=== PATIENT | male | born 1955 | race Caucasian/White ===

== ENCOUNTER 2018-12-02 07:40 | Day surgery (SDC) | payer BC ==
[~2018-12-02 07:40] MED LIST: LACTATED RINGERS 1,000 ML IV SCH
[2018-12-02 07:59] VITALS: TEMP 96.9
[2018-12-02] MEDS ORDERED: LIDOCAINE 1% 20 ML VIAL (10MG/ML) FOR IV START INTRADERMA ONE (08:10)
[2018-12-02] MEDS ORDERED: LIDOCAINE 1% INJ 10MG/ML (20 ML MDV) ONE (08:20)
[2018-12-02] MEDS ORDERED: PROPOFOL 10 MG/ML 20 ML VIAL IV ONE (08:20)
--- NOTE | 2018-12-02 08:25 | P.GSHP ---
History of Present Illness H&P Date: 12/02/18 Chief Complaint: Screening colonoscopy This is a 63-year-old male who presents today for screening colonoscopy. Patient denies a significant GI complaints. Past Medical History Additional Past Medical History / Comment(s): recent admission to [facility] for low sodium affecting kidney functions-October 2018,tremors,diarrhea,increased fatigue History of Any Multi-Drug Resistant Organisms: None Reported Past Surgical History: Cholecystectomy Additional Past Surgical History / Comment(s): traumatic amputation of finger Past Anesthesia/Blood Transfusion Reactions: No Reported Reaction Additional Past Anesthesia/Blood Transfusion Reaction / Comment(s): unknown family hx Smoking Status: Former smoker - Past Family History Mother Family Medical History: No Reported History Father Additional Family Medical History / Comment(s): clotting disorder Medications and Allergies Home Medications Medication Instructions Recorded Confirmed Type Nicotine 21Mg/24Hr Patch [Habitrol 1 each TRANSDERM DAILY 11/29/18 12/02/18 History 21Mg/24Hr Patch] Pantoprazole Sodium [Protonix] 40 mg PO DAILY 11/29/18 12/02/18 History Allergies Allergy/AdvReac Type Severity Reaction Status Date / Time No Known Allergies Allergy Verified 12/02/18 07:59 Surgical - Exam Vital Signs Temp Pulse Resp BP Pulse Ox 96.9 F L 88 16 122/76 97 12/02/18 07:55 12/02/18 07:55 12/02/18 07:55 12/02/18 07:55 12/02/18 07:55 - General well developed, well nourished, no distress - Eyes PERRL - ENT normal pinna - Neck no masses - Respiratory normal expansion - Cardiovascular Rhythm: regular - Abdomen Abdomen: soft, non tender Assessment and Plan Assessment: We'll perform screening colonoscopy.
--- NOTE | 2018-12-02 08:39 | P.OP ---
Date of Procedure: 12/02/18 Preoperative Diagnosis: Screening colonoscopy Postoperative Diagnosis: Normal colon Procedure(s) Performed: Colonoscopy Anesthesia: MAC Surgeon: Henry Dos Santos Pathology: none sent Condition: stable Disposition: PACU Description of Procedure: PROCEDURE: The patient was placed on the endoscopy table in the lateral position. Digital rectal examination was performed which revealed no abnormalities. The prostate was symmetrical without nodules. Flexible colonoscope was then placed in the patient's anus and passed throughout the entire colon. The ileocecal valve was visualized. The cecum, ascending, transverse, descending and sigmoid colon were normal. The rectum was normal as well. There were no masses, polyps or diverticula noted in the entire colon. SUMMARY OF FINDINGS: Normal colonoscopy.
[2018-12-02 08:58] VITALS: BP 110/68; PULSE 74; RESP 18
== END 2018-12-02 09:10 | disposition home or self-care (01) ==
LOC: ORWHC2ENDO 07:40
PROVIDERS: ATTEND Surgery
DX: Z12.11 Encounter for screening for malignant neoplasm of colon (principal); K21.9 Gastro-esophageal reflux disease without esophagitis; Z90.49 Acquired absence of other specified parts of digestive tract; R25.1 Tremor, unspecified; Z87.891 Personal history of nicotine dependence; Z83.2 Family history of diseases of the blood and blood-forming organs and certain disorders involving the immune mechanism; Z79.899 Other long term (current) drug therapy
CPT/HCPCS: J2001; J2704; G0121; 45378

== ENCOUNTER 2018-12-23 10:50 | Inpatient (IN) | payer BC ==
--- NOTE | 2018-12-23 12:26 | ED ---
Skin/Abscess/FB HPI <Ha Bardales - Last Filed: 12/23/18 14:05> - General Source: patient Mode of arrival: wheelchair Limitations: no limitations <Francine Bruner - Last Filed: 12/23/18 15:20> - General Chief complaint: Skin/Abscess/Foreign Body Stated complaint: Foot infection Time Seen by Provider: 12/23/18 11:29 - History of Present Illness Initial comments: Patient is a 63-year-old male presenting to the emergency Department with complaints of a wound on his right big toe. Patient states he has been dealing with a sore on his bottom of right foot for almost a year now. Patient states he recently switched foot doctors after he moved in with his son and now sees Dr. Krishnan. Patient admits to history of neuropathy in bilateral feet. Patient states approximate 4 days ago he was feeling nauseous, vomiting, fatigue. That has since passed. Then yesterday patient noticed his right toe appeared more red than usual. Patient went to Dr Krishnan today and had the wound drained. Dr. Krishnan recommended him coming to the ER for possible debridement. Patient denies fever, chills, nausea, vomiting at this time. Patient has not been on antibiotics recently. Upon arrival to ER, vital signs are stable, afebrile. (Francine Bruner) - Related Data Home Medications Medication Instructions Recorded Confirmed Nicotine 21Mg/24Hr Patch [Habitrol 1 each TRANSDERM DAILY 11/29/18 12/02/18 21Mg/24Hr Patch] Pantoprazole Sodium [Protonix] 40 mg PO DAILY 11/29/18 12/02/18 Allergies Allergy/AdvReac Type Severity Reaction Status Date / Time No Known Allergies Allergy Verified 12/23/18 11:00 Review of Systems ROS Other: All systems not noted in ROS Statement are negative. <Ha Bardales - Last Filed: 12/23/18 14:05> ROS Other: All systems not noted in ROS Statement are negative. <Francine Bruner - Last Filed: 12/23/18 15:20> ROS Statement: Those systems with pertinent positive or pertinent negative responses have been documented in the HPI. Past Medical History Additional Past Medical History / Comment(s): recent admission to [facility] for low sodium affecting kidney functions-October 2018,tremors,diarrhea,increased fatigue, neuropathy, previous DM History of Any Multi-Drug Resistant Organisms: None Reported Past Surgical History: Cholecystectomy Additional Past Surgical History / Comment(s): traumatic amputation of finger Past Anesthesia/Blood Transfusion Reactions: No Reported Reaction Additional Past Anesthesia/Blood Transfusion Reaction / Comment(s): unknown family hx Past Psychological History: Depression Smoking Status: Former smoker Past Alcohol Use History: None Reported Past Drug Use History: None Reported - Past Family History Mother Family Medical History: No Reported History Father Additional Family Medical History / Comment(s): clotting disorder <Francine Bruner - Last Filed: 12/23/18 15:20> General Exam Limitations: no limitations <Francine Bruner - Last Filed: 12/23/18 15:20> - General Exam Comments Initial Comments: GENERAL: Well-appearing, well-nourished and in no acute distress. HEAD: Atraumatic, normocephalic. EYES: Pupils equal round and reactive to light, extraocular movements intact, sclera anicteric, conjunctiva are normal. ENT: TMs normal, nares patent, oropharynx clear without exudates. Moist mucous membranes. NECK: Normal range of motion, supple without lymphadenopathy or JVD. LUNGS: Breath sounds clear to auscultation bilaterally and equal. No wheezes rales or rhonchi. HEART: Regular rate and rhythm without murmurs, rubs or gallops. ABDOMEN: Soft, nontender, normoactive bowel sounds. No guarding, no rebound. No masses appreciated. : Deferred EXTREMITIES: Patient has 2 open wounds on the palmar aspect of his right foot and on the lateral aspect of his right big toe. He has surrounding erythema of the right big toe and into the right foot. He does have some pain with palpation. There is very little drainage at this time. NEUROLOGICAL: Cranial nerves II through XII grossly intact. Normal speech. Decreased sensat ion in bilateral lower legs secondary to neuropathy. PSYCH: Normal mood, normal affect. SKIN: Warm, Dry, normal turgor, no rashes. (Francine Bruner) Course Vital Signs 12/23/18 12/23/18 11:00 14:20 Temperature 98.0 F Pulse Rate 85 55 L Respiratory 18 18 Rate Blood Pressure 98/66 115/78 O2 Sat by Pulse 99 98 Oximetry Medical Decision Making - Lab Data Result diagrams: 12/23/18 12:18 12/23/18 12:18 <Ha Bardales - Last Filed: 12/23/18 14:05> - Lab Data Result diagrams: 12/23/18 12:18 12/23/18 12:18 <Francine Bruner - Last Filed: 12/23/18 15:20> - Medical Decision Making I, Atilio Bardales, personally saw and examined the patient. I have reviewed and agree with the PA findings, including all diagnostic interpretations and treatment plans as written unless otherwise stated. I was present for the [place] portions of any procedures performed and the inclusive time noted for any [facility] care statement. (Ha Bardales) Patient is a 63-year-old male presenting with 2 open sores on his right big toe. Patient has had a chronic ulcer on the bottom of his right foot for almost a year now and now has also developed a second sore on the medial aspect of his right great toe. Vital signs are stable upon arrival. On exam patient has 2 open ulcers, with surrounding cellulitis. Patient has pain with palpation. Patient has decreased sensation of bilateral lower feet secondary to neuropathy. Patient is currently having active drainage. Wound cultures were obtained by Dr. Krishnan's office prior to arrival and will be sent to lab. Labs reveal white count of 13.8. Lactic acid is 1.1. Glucose 121. UA was within normal limits. Case is discussed with Dr. Bardales. Patient will be admitted for IV antibiotics and consult to vascular surgery. Patient is agreement with this plan. (Francine Bruner) - Lab Data Lab Results 12/23/18 12/23/18 12/23/18 Range/Units 12:18 12:18 12:18 WBC 13.8 H (3.8-10.6) k/uL RBC 3.27 L (4.30-5.90) m/uL Hgb 10.8 L (13.0-17.5) gm/dL Hct 32.3 L (39.0-53.0) % MCV 98.8 (80.0-100.0) fL MCH 32.9 (25.0-35.0) pg MCHC 33.3 (31.0-37.0) g/dL RDW 15.1 (11.5-15.5) % Plt Count 371 (150-450) k/uL Neutrophils % 84 % Lymphocytes % 7 % Monocytes % 5 % Eosinophils % 2 % Basophils % 0 % Neutrophils # 11.6 H (1.3-7.7) k/uL Lymphocytes # 1.0 (1.0-4.8) k/uL Monocytes # 0.7 (0-1.0) k/uL Eosinophils # 0.3 (0-0.7) k/uL Basophils # 0.0 (0-0.2) k/uL Sodium 137 (137-145) mmol/L Potassium 4.3 (3.5-5.1) mmol/L Chloride 104 (98-107) mmol/L Carbon Dioxide 18 L (22-30) mmol/L Anion Gap 15 mmol/L BUN 29 H (9-20) mg/dL Creatinine 2.17 H (0.66-1.25) mg/dL Est GFR (CKD-EPI)AfAm 36 (>60 ml/min/1.73 sqM) Est GFR (CKD-EPI)NonAf 31 (>60 ml/min/1.73 sqM) Glucose 121 H (74-99) mg/dL Plasma Lactic Acid Tod 1.1 (0.7-2.0) mmol/L Calcium 9.6 (8.4-10.2) mg/dL Total Bilirubin 0.8 (0.2-1.3) mg/dL AST 15 L (17-59) U/L ALT 19 L (21-72) U/L Alkaline Phosphatase 105 (38-126) U/L Total Protein 7.4 (6.3-8.2) g/dL Albumin 4.3 (3.5-5.0) g/dL Urine Color Urine Appearance (Clear) Urine pH (5.0-8.0) Ur Specific [place] (1.001-1.035) Urine Protein (Negative) Urine Glucose (UA) (Negative) Urine Ketones (Negative) Urine Blood (Negative) Urine Nitrite (Negative) Urine Bilirubin (Negative) Urine Urobilinogen (<2.0) mg/dL Ur Leukocyte Esterase (Negative) Urine RBC (0-5) /hpf Urine WBC (0-5) /hpf Ur Squamous Epith Cells (0-4) /hpf Urine Bacteria (None) /hpf Urine Mucus (None) /hpf 12/23/18 Range/Units 13:23 WBC (3.8-10.6) k/uL RBC (4.30-5.90) m/uL Hgb (13.0-17.5) gm/dL Hct (39.0-53.0) % MCV (80.0-100.0) fL MCH (25.0-35.0) pg MCHC (31.0-37.0) g/dL RDW (11.5-15.5) % Plt Count (150-450) k/uL Neutrophils % % Lymphocytes % % Monocytes % % Eosinophils % % Basophils % % Neutrophils # (1.3-7.7) k/uL Lymphocytes # (1.0-4.8) k/uL Monocytes # (0-1.0) k/uL Eosinophils # (0-0.7) k/uL Basophils # (0-0.2) k/uL Sodium (137-145) mmol/L Potassium (3.5-5.1) mmol/L Chloride (98-107) mmol/L Carbon Dioxide (22-30) mmol/L Anion Gap mmol/L BUN (9-20) mg/dL Creatinine (0.66-1.25) mg/dL Est GFR (CKD-EPI)AfAm (>60 ml/min/1.73 sqM) Est GFR (CKD-EPI)NonAf (>60 ml/min/1.73 sqM) Glucose (74-99) mg/dL Plasma Lactic Acid Tod (0.7-2.0) mmol/L Calcium (8.4-10.2) mg/dL Total Bilirubin (0.2-1.3) mg/dL AST (17-59) U/L ALT (21-72) U/L Alkaline Phosphatase (38-126) U/L Total Protein (6.3-8.2) g/dL Albumin (3.5-5.0) g/dL Urine Color Yellow Urine Appearance Clear (Clear) Urine pH 5.5 (5.0-8.0) Ur Specific [place] 1.012 (1.001-1.035) Urine Protein 1+ H (Negative) Urine Glucose (UA) Negative (Negative) Urine Ketones Negative (Negative) Urine Blood Negative (Negative) Urine Nitrite Negative (Negative) Urine Bilirubin Negative (Negative) Urine Urobilinogen <2.0 (<2.0) mg/dL Ur Leukocyte Esterase Negative (Negative) Urine RBC 2 (0-5) /hpf Urine WBC 6 H (0-5) /hpf Ur Squamous Epith Cells 1 (0-4) /hpf Urine Bacteria Rare H (None) /hpf Urine Mucus Rare H (None) /hpf Disposition <Ha Bardales - Last Filed: 12/23/18 14:05> Is patient prescribed a controlled substance at d/c from ED?: No Decision Date: 12/23/18 Decision Time: 14:30 <Francine Bruner - Last Filed: 12/23/18 15:20> Clinical Impression: Ulcer of toe of right foot, Cellulitis of right foot Disposition: ADMITTED IP TO THIS [facility] Condition: Stable Referrals: Wendi Guajardo DO [Primary Care Provider] - 1-2 days
[2018-12-23 12:34] LABS: Basophils % (A) 0 %; Eosinophils # (A) 0.3 k/uL (0-0.7); Eosinophils % (A) 2 %; HCT 32.3 % (39.0-53.0); HGB 10.8 gm/dL (13.0-17.5); Lymphocytes % (A) 7 %; MCH 32.9 pg (25.0-35.0); MCHC 33.3 g/dL (31.0-37.0); MCV 98.8 fL (80.0-100.0); Mean Platelet Volume 7.3; Monocytes # (A) 0.7 k/uL (0-1.0); Monocytes % (A) 5 %; Neutrophils # (A) 11.6 k/uL (1.3-7.7); Neutrophils % (A) 84 %; Platelet Count 371 k/uL (150-450); RBC 3.27 m/uL (4.30-5.90); RDW 15.1 % (11.5-15.5); WBC 13.8 k/uL (3.8-10.6)
--- NOTE | 2018-12-23 12:36 | XR ---
EXAMINATION TYPE: XR foot complete RT DATE OF EXAM: 12/23/2018 COMPARISON: NONE HISTORY: Pain TECHNIQUE: Three views are submitted. FINDINGS: Arthropathy of all MTP joints and DIP joints. There is a demineralization of the head of the fourth a nd fifth metatarsal and proximal phalanx of the fourth and fifth digits. Calcaneal spurs are noted. IMPRESSION: 1. Demineralization of the fourth and fifth digits as discussed above correlate for osteomyelitis.
[2018-12-23 12:44] LABS: Albumin 4.3 g/dL (3.5-5.0); Calcium 9.6 mg/dL (8.4-10.2); Potassium 4.3 mmol/L (3.5-5.1); Total Bilirubin 0.8 mg/dL (0.2-1.3); Total Protein 7.4 g/dL (6.3-8.2)
[2018-12-23 13:44] LABS: Appearance,Urine Clear (Clear); Bacteria,Urine Rare /hpf; Bilirubin,Urine Negative (Negative); Blood,Urine Negative (Negative); Color,Urine Yellow; Glucose,Urine (UA) Negative (Negative); Ketones,Urine Negative (Negative); Leukocyte Esterase,Urine Negative (Negative); Mucus,Urine Rare /hpf; Nitrite,Urine Negative (Negative); PH, Urine 5.5 (5.0-8.0); Protein,Urine 1+ (Negative); RBC,Urine 2 /hpf (0-5); Specific Gravity,Urine 1.012 (1.001-1.035); Squamous Epithelial Cell,Urine 1 /hpf (0-4); Urobilinogen,Urine <2.0 mg/dL (<2.0)
[2018-12-23] MEDS ORDERED: ONDANSETRON 4 MG/2 ML VIAL IVP PRN (14:19)
[2018-12-23] MEDS ORDERED: traMADol 50 MG TAB PO PRN (14:19)
[2018-12-23] MEDS ORDERED: ACETAMINOPHEN TAB 325 MG TAB PO PRN (14:19)
[2018-12-23] MEDS ORDERED: NALOXONE 0.4 MG/ML 1 ML VIAL IV PRN (14:19)
[2018-12-23] MEDS ORDERED: VANCOMYCIN IV PER PHARMACY 1 EACH MISC MISCELLANE PRN (14:29)
[2018-12-23] MEDS: SODIUM CHLORIDE 0.9% 1,000 ML IV SCH (14:53)
[2018-12-23] MEDS: VANCOMYCIN 1,750 MG in SODIUM CHLORIDE 0.9% 500 ML 500 ML IVPB STA ×2 (14:53→16:17)
[2018-12-23] MEDS ORDERED: ALPRAZolam 0.25 MG TAB PO PRN (15:19)
[2018-12-23] MEDS ORDERED: HYDROmorphone 0.5 MG/0.5 ML SYRINGE IVP PRN (15:19)
[2018-12-23] MEDS ORDERED: HYDROcodone/APAP 5-325MG 1 EACH TAB PO PRN (15:19)
[2018-12-23] MEDS: INSULIN ASPART (NovoLOG) 100 UNIT/ML VIAL SQ SCH ×2 (17:23→21:20)
[2018-12-23 17:25] LABS: Glucose,Whole Blood 137 mg/dL (75-99)
--- NOTE | 2018-12-23 19:51 | HP ---
HISTORY AND PHYSICAL CHIEF COMPLAINT: Pain and swelling of the right big toe. I am covering for Dr. Guajardo. HISTORY OF PRESENT ILLNESS: This 63-year-old gentleman with a past medical history of multiple medical problems including diabetes, history of GERD, renal disease, being followed by Dr. Wendi Guajardo in the outpatient setting. The patient recently moved from the left side of the [facility] to [facility]. Patient was recently admitted to [facility] because of hyponatremia and multiple other medical issues and diarrhea. The patient lost about 150 pounds. The patient is having chronic wound on the right big toe area after an abscess for the last 1 year, which was treated by multiple physicians and Dr. Krishnan, his wired music operator performed incision and drainage today and because of worsening infection and other complications, patient referred to [facility] and was admitted for further evaluation and treatment. There is no history of fever, rigors or chills. No history of headache, loss of consciousness or seizures at this time. PAST MEDICAL HISTORY: Diabetes type 2, GERD, history of renal disease, history of cholecystectomy, history of depression. MEDICATIONS: Home medications are: 1. Protonix 40 mg q.h.s. 2. Melatonin q.h.s. 3. Zestril 2.5 mg q.h.s. 4. Vitamin B12 1000 mg q.h.s. ALLERGIES: None. FAMILY HISTORY: No history of any heart disease or strokes in the family. SOCIAL HISTORY: Previous history of smoking. No history of current smoking or alcohol intake. REVIEW OF SYSTEMS: ENT: No diminished vision. No diminished hearing. CARDIOVASCULAR system: No angina or palpitations. RESPIRATIONS: No cough. No hemoptysis. GI no nausea or vomiting. no dysuria. NERVOUS SYSTEM: No numbness or weakness. ALLERGY/IMMUNOLOGY: No asthma or hayfever. MUSCULOSKELETAL: As mentioned earlier. HEMATOLOGY/ONCOLOGY: No history of anemia. ENDOCRINE: Diabetes. CONSTITUTIONAL: As mentioned earlier. DERMATOLOGY negative. PSYCHIATRIC: As mentioned earlier. PHYSICAL EXAMINATION: Alert and oriented x3. Pulse is 97, blood pressure 116/84, respiration 18, temperature 98.2, pulse ox 98% on room air. HEENT: Conjunctivae normal. NECK: No JVD. No carotid bruit. No lymph node enlargement. CARDIOVASCULAR: S1, S2 muffled. RESPIRATIONS: Breath sounds diminished in the bases. No rhonchi. No crackles. ABDOMEN: Soft, nontender. No mass palpable. LEGS: The right leg significant infection and tenderness, erythema of the right big toe area, status post incision and drainage and also pulses diminished on that side. NERVOUS SYSTEM: Higher functions as mentioned earlier. Moves all four limbs. No focal motor or sensory deficits. LYMPHATICS: No lymph nodes palpable in the neck, axillae or groin. SKIN: No ulcer, rash or bleeding. LABS: WBC 13.2, hemoglobin 10.8, sodium 137, potassium 4.3, creatinine is 2.17. ASSESSMENT: 1. Acute on chronic right big toe wound infection with diabetic foot with failure of outpatient treatment, possible osteomyelitis. 2. Increased creatinine with chronic kidney disease stage 3. 3. History of hyponatremia. 4. Increased WBC. 5. Anemia, normocytic anemia of chronic disease. 6. Diabetes mellitus type 2. 7. Peripheral neuropathy. 8. Gastroesophageal reflux disease. 9. History of weight loss. 10.Cholecystectomy. 11.History of depression. 12.Gait dysfunction, uses cane for ambulation. 13.History of nicotine dependence. 14.History of EtOH. RECOMMENDATIONS AND DISCUSSION: In this 63-year-old gentleman who presented with multiple complex medical issues, we will monitor the patient closely, continue the current medications, management and symptomatic treatment. We will initiate broad-spectrum IV antibiotics and I would also obtain the cultures. DVT prophylaxis. Symptomatic treatment. Guarded prognosis because of multiple complex medical issues. Further recommendations to follow. A copy of this dictation being forwarded to Dr. Guajardo who is the primary physician. We will consult Infectious Disease and as well as vascular surgery also. MMODL / IJN: [id number] /
[2018-12-23 20:29] LABS: Glucose,Whole Blood 110 mg/dL (75-99)
[2018-12-23] MEDS: TEMAZEPAM 15 MG CAP PO PRN (21:20)
[2018-12-23] MEDS: HEPARIN SODIUM,PORCINE 5,000 UNIT/ML 1 ML VIAL SQ SCH (21:20)
[2018-12-23] MEDS: LISINOPRIL 2.5 MG TAB PO SCH (21:21)
[2018-12-23] MEDS: CYANOCOBALAMIN 500 MCG TAB PO SCH (21:21)
[2018-12-23] MEDS: PIPERACILLIN-TAZOBACTAM 3.375 GM in SODIUM CHLORIDE 0.9% 100 ML IVPB SCH (23:57)
--- NOTE | 2018-12-24 00:35 | CONS ---
CONSULTATION This is a 63-year-old gentleman who came to the emergency room, referred by Dr. Krishnan. The patient has a chronic wound right foot big toe. He has a history of callus formation and also patient has been on a total contact cast when he was at the wound center at [facility]. The patient was sent for further investigation. PHYSICAL EXAMINATION: Patient was seen in his room. NECK: Supple. CHEST: Clear to auscultation. ABDOMEN: Soft. Femorals are palpable, dorsal pedis is palpable. Patient has some redness of the right foot big toe on the plantar aspect with callus formation. No active bleeding was noted. PLAN: We will do the bone scan since patient has a chronic wound to the right foot big toe and also patient is on IV antibiotic. Culture has been taken. Medihoney gel to the wound and the if does not improve, then patient will need some surgical intervention. We will follow with you. The patient has a decent circulation. Thank you very much for the consultation. MMODL / IJN: [id number] /
[2018-12-24 07:53] LABS: Glucose,Whole Blood 96 mg/dL (75-99)
[2018-12-24] MEDS: THIAMINE 100 MG TAB PO SCH (08:00)
[2018-12-24] MEDS: PANTOPRAZOLE 40 MG TABLET PO SCH (08:00)
[2018-12-24] MEDS: MULTIVITAMINS, THERA 1 EACH TAB PO SCH (08:00)
[2018-12-24] MEDS: FOLIC ACID 1 MG TAB PO SCH (08:00)
[2018-12-24] MEDS: PIPERACILLIN-TAZOBACTAM 3.375 GM in SODIUM CHLORIDE 0.9% 100 ML IVPB SCH (08:00)
[2018-12-24] MEDS: HEPARIN SODIUM,PORCINE 5,000 UNIT/ML 1 ML VIAL SQ SCH ×2 (08:00→20:27)
[2018-12-24] MEDS: INSULIN ASPART (NovoLOG) 100 UNIT/ML VIAL SQ SCH ×4 (08:01→20:41)
[2018-12-24 09:38] LABS: Potassium 4.2 mmol/L (3.5-5.1)
[2018-12-24 10:10] LABS: Basophils # (A) 0.2 k/uL (0-0.2); Basophils % (A) 1 %; Eosinophils # (A) 0.4 k/uL (0-0.7); Eosinophils % (A) 4 %; HCT 31.3 % (39.0-53.0); HGB 10.1 gm/dL (13.0-17.5); Lymphocytes # (A) 1.2 k/uL (1.0-4.8); Lymphocytes % (A) 11 %; MCH 32.2 pg (25.0-35.0); MCHC 32.1 g/dL (31.0-37.0); MCV 100.1 fL (80.0-100.0); Macrocytosis Slight; Mean Platelet Volume 8.4; Monocytes # (A) 0.5 k/uL (0-1.0); Monocytes % (A) 5 %; Neutrophils # (A) 8.7 k/uL (1.3-7.7); Neutrophils % (A) 78 %; Platelet Count 374 k/uL (150-450); RBC 3.13 m/uL (4.30-5.90); RDW 14.7 % (11.5-15.5); WBC 11.2 k/uL (3.8-10.6)
[2018-12-24] MEDS: SODIUM CHLORIDE 0.9% 1,000 ML IV SCH (12:21)
[2018-12-24 12:26] LABS: Glucose,Whole Blood 92 mg/dL (75-99)
--- NOTE | 2018-12-24 12:46 | NM ---
EXAMINATION TYPE: NM bone 3 phase DATE OF EXAM: 12/24/2018 COMPARISON: 12/23/2018 HISTORY: osteo rt foot Triple phase bone scintigraphy was performed following the injection of 26.4 mCi Tc 99m MDP. Immedia te images and 4 hours post injection images acquired. FINDINGS: There is increased flow to the right foot including the first and second digit. Soft tissue uptake is seen involving the first and second digit of the right foot compatible cellulit is and hyperemia. Delayed imaging demonstrates increased uptake at the head of the first metatarsal. IMPRESSION: 1. Findings are compatible with a cellulitis with osteomyelitis of the head of the right first metata rsal.
--- NOTE | 2018-12-24 13:23 | P.CONS ---
History of Present Illness - Reason for Consult Consult date: 12/23/18 Right foot wound cellulitis and a question of osteomyelitis Requesting physician: Delmis Plummer - Chief Complaint Right foot wound swelling redness times few weeks - History of Present Illness Patient is 63 year male with a past medical history significant for a chronic nonhealing wound to the right foot at the base of his right big toe that has been there for almost a year now and has been previously treated by foot piece assembler in the [facility] and has been treated with multiple modalities the patient recently moved to this area and did follow up with a local foot piece assembler Dr. Krishnan who subsequently sent the patient to the ER as he was noticed to have worsening cellulitis patient mentioning that wound on the right foot medial aspect hasn't healed up now almost a year he hasn't noticed recent worsening with more swelling more redness patient did have some diabetic neuropathy who hence did not have significant pain but did have some pressure describing the pressure to be about 4-5 out of 10 when it is pressed on and he walks on it denies significant purulent drainage from it with associated swelling redness and warmth to the area he did have some chills but denies high- grade fever the patient was evaluated by the ER physician patient did have x- rays of the foot which was read as demineralization of the fourth and fifth digit as discussed above correlate for Osteomyelitis did not mention anything on the first digit, the patient did receive a dose of Rocephin in the ER he was admitted to the hospital infectious disease was consulted for further re commendation regarding antibiotic therapy, patient has been afebrile however noticed to have elevated white count of 13.8 Review of Systems CONSTITUTIONAL: Positive for weakness. Some chills but denies high-grade Fever EYES: No complaint. ENT:No complaint. RESPIRATORY: No complaint. CARDIOVASCULAR: No complaint. GENITOURINARY: No complaint. GASTROINTESTINAL: No complaint. MUSCULOSKELETAL: As per history of present illness INTEGUMENTARY:As per history of present illness PSYCHOLOGICAL: No complaint. ENDOCRINE: No complaint. NEUROLOGIC: No complaint. Past Medical History Past Medical History: Diabetes Mellitus, Eye Disorder, GERD/Reflux, Renal Disease Additional Past Medical History / Comment(s): 10/2018 Pt was admitted to [facility] with hyponatremia which affected his kidney function/tremors/diarrhea and increased fatigue, ckd, pt states he lost 150 pounds and no longer on medication for diabetes, bilateral feet neuropathy, constipation alternating with diarrhea, "protein film over L eye and alittle on R eye". History of Any Multi-Drug Resistant Organisms: None Reported Past Surgical History: Cholecystectomy, Orthopedic Surgery Additional Past Surgical History / Comment(s): Traumatic amputation index finger L hand, colonoscopy, bilateral cataract removals/lens implants. Past Anesthesia/Blood Transfusion Reactions: No Reported Reaction Additional Past Anesthesia/Blood Transfusion Reaction / Comm: unknown family hx Smoking Status: Former smoker - Past Family History Mother History Unknown: Yes Family Medical History: No Reported History Additional Family Medical History / Comment(s): Mother left when pt was 2 yrs old. Father Family Medical History: Blood Disorder, Cancer Additional Family Medical History / Comment(s): Clotting disorder-"bleeder". Father had 5 different types of cancers. Brother(s) Family Medical History: Deep Vein Thrombosis (DVT) Medications and Allergies Home Medications Medication Instructions Recorded Confirmed Type Pantoprazole Sodium [Protonix] 40 mg PO HS 11/29/18 12/23/18 History Cyanocobalamin [Vitamin B-12] 1,000 mcg PO HS 12/23/18 12/23/18 History Lisinopril [Zestril] 2.5 mg PO HS 12/23/18 12/23/18 History Melatonin Gummies(Unknown Dose) 1 tab PO HS 12/23/18 12/23/18 History Allergies Allergy/AdvReac Type Severity Reaction Status Date / Time No Known Allergies Allergy Verified 12/23/18 15:24 Physical Exam Vitals: Vital Signs Temp Pulse Resp BP Pulse Ox 12/23/18 16:20 98.6 F 97 18 116/84 98 12/23/18 14:20 55 L 18 115/78 98 12/23/18 11:00 98.0 F 85 18 98/66 99 Intake and Output 12/23/18 12/23/18 12/23/18 06:59 14:59 22:59 Other: Weight 99.79 kg GENERAL DESCRIPTION: Elderly male lying in bed, no distress. No tachypnea or accessory muscle of respiration use. HEENT: Shows Pallor , no scleral icterus. Oral mucous membrane is dry. No pharyngeal erythema or thrush NECK: Trachea central, no thyromegaly. LUNGS: Unlabored breathing. Clear to auscultation anteriorly. No wheeze or crackle. HEART: S1, S2, regular rate and rhythm. No loud murmur ABDOMEN: Soft, no tenderness , guarding or rigidity, no organomegaly EXTREMITIES: Right foot with swelling redness with a wound on the medial aspect at the base of the big toe no slough tissue no purulent drainage or any foul-smelling SKIN: No rash, no masses palpable. NEUROLOGICAL: The patient is awake, alert, oriented x3, mood and affect normal. Results CBC & Chem 7: 12/24/18 08:46 12/24/18 08:46 Labs: Abnormal Lab Results - Last 24 Hours (Table) 12/23/18 12/23/18 12/23/18 Range/Units 12:18 12:18 13:23 WBC 13.8 H (3.8-10.6) k/uL RBC 3.27 L (4.30-5.90) m/uL Hgb 10.8 L (13.0-17.5) gm/dL Hct 32.3 L (39.0-53.0) % Neutrophils # 11.6 H (1.3-7.7) k/uL Carbon Dioxide 18 L (22-30) mmol/L BUN 29 H (9-20) mg/dL Creatinine 2.17 H (0.66-1.25) mg/dL Glucose 121 H (74-99) mg/dL AST 15 L (17-59) U/L ALT 19 L (21-72) U/L Urine Protein 1+ H (Negative) Urine WBC 6 H (0-5) /hpf Urine Bacteria Rare H (None) /hpf Urine Mucus Rare H (None) /hpf Assessment and Plan Assessment: 1-patient with a chronic nonhealing wound to the right foot at the base of his big toe that has been there for more than a year with previously treated for infection now admitted to hospital with cellulitis with concern for possible underlying Osteomyelitis will need to cover for the gram-positive skin daniel such as MRSA to the likely pathogen underlying gram-negative infection less likely but not entirely excluded (1) Foot osteomyelitis, right Current Visit: Yes Status: Acute Code(s): M86.9 - OSTEOMYELITIS, UNSPECIFIED SNOMED Code(s): 3376377634176711 (2) Cellulitis of right foot Current Visit: Yes Status: Acute Code(s): L03.115 - CELLULITIS OF RIGHT LOWER LIMB SNOMED Code(s): 301193318 Plan: 1-local wound cultures to guide antibiotic therapy both aerobic and anaerobic 2-Bone scan has been ordered we'll follow the results 3-local wound care with Aquacel silver dressing 4-Vancomycin pharmacy to dose target trough of 15 while watching his kidney function and Vanco trough closely We will follow on clinical condition and cultures to further adjust medication if needed Thank you for this consultation will follow this patient with you Time with Patient: Greater than 30
[2018-12-24 14:39] VITALS: BMI 29.0
--- NOTE | 2018-12-24 15:04 | PN ---
PROGRESS NOTE This is a 63-year-old gentleman who came yesterday to the ER with cellulitis and some drainage from the right foot big toe plantar aspect ulcer. The patient had a bone scan which was suggestive of being positive for osteomyelitis. The patient was seen by Infectious Disease, Dr. Rodriguez, and at this point there is no drainage noted. The patient will be on long-term antibiotic. If the patient needs surgical intervention, then we will be more than happy to take care of this gentleman. MMODL / IJN: [id number] /
[2018-12-24] MEDS ORDERED: VANCOMYCIN 1,750 MG in SODIUM CHLORIDE 0.9% 500 ML 500 ML IVPB SCH (16:00)
[2018-12-24 16:52] LABS: Glucose,Whole Blood 92 mg/dL (75-99)
--- NOTE | 2018-12-24 18:45 | PN ---
PROGRESS NOTE DATE OF SERVICE: 12/24/2018. REASON FOR FOLLOWUP: Right foot wound and cellulitis. INTERVAL HISTORY: The patient is currently afebrile. He has been complaining of some discomfort in the right foot, but no worsening. Denies having any chest pain, shortness of breath or cough. No abdominal pain. No diarrhea. PHYSICAL EXAMINATION: Blood pressure 101/66, pulse of 57, temperature 97.8. He is 97% on room air. General description is an elderly male lying in bed in no distress. RESPIRATORY SYSTEM: Unlabored breathing. Clear to auscultation anteriorly. HEART: S1, S2. Regular rate and rhythm. ABDOMEN: Soft. No tenderness. Right foot is currently swollen, red, warm to touch with a wound on the lateral side but no purulent drainage. LABS: Hemoglobin is 10.1, white count 11.2 with a BUN of 29, creatinine 2.03. Wound cultures currently pending. DIAGNOSTIC IMPRESSION AND PLAN: Patient with a right foot chronic wound with secondary cellulitis. Bone scan has been suspicious for osteomyelitis. The patient will need a PICC line for outpatient IV antibiotic therapy with a drug or antibiotic depending upon the culture report. Will also obtain baseline CRP and a sed rate. Local wound care with an Aquacel Silver dressing. Plan of care discussed with the surgeon on the floor. MMODL / IJN: [id number] /
--- NOTE | 2018-12-24 20:21 | PN ---
PROGRESS NOTE DATE OF SERVICE: 12/24/2018 This 63-year-old gentleman who was admitted with acute on chronic right big toe wound is being evaluated for possible osteomyelitis. Vascular Surgery and Infectious Disease are following the patient closely. A bone scan showed cellulitis and osteomyelitis of the head of the right first metatarsal. Patient is on IV antibiotics. Past medical history reviewed. REVIEW OF SYSTEMS: CARDIOVASCULAR SYSTEM: No angina, palpitations. RESPIRATORY SYSTEM: As mentioned earlier. GI: No nausea, vomiting, diarrhea. : No dysuria or retention. NERVOUS SYSTEM: No numbness, weakness. CURRENT MEDICATIONS: Reviewed. They include: 1. Tylenol 650 q.6 p.r.n. 2. [place] 5 mg q.6 p.r.n. 3. Xanax 0.25 t.i.d. 4. Cefepime 2 grams IV b.i.d. 5. Folic acid 1 mg daily. 6. Heparin 5000 units subcutaneously b.i.d. 7. NovoLog. 8. Zestril 2.5 mg. 9. Narcan. 10.Zofran. 11.Protonix. 12.Restoril. 13.Vitamin B1. 14.Ultram. 15.Vancomycin IV. PHYSICAL EXAMINATION: Patient is alert, oriented x3. Pulse is 57, blood pressure 101/60, respirations 20, temperature 97.8, pulse ox 97% on room air. HEENT: Conjunctivae normal. Oral mucosa moist. NECK: No jugular venous distention. No carotid bruit. No lymph node enlargement. No thyroid enlargement. CARDIOVASCULAR SYSTEM: S1, S2 muffled. No S3. No S4. RESPIRATORY SYSTEM: Breath sounds diminished at the bases. No rhonchi. No crackles. ABDOMEN: Soft, non-tender. No mass palpable. LEGS: Right foot swelling and cellulitis. Tenderness present significantly on the dorsal side. Ulcerations, status post incision and drainage, on the dorsal and on the plantar distal toe, also. SKIN: As mentioned. JOINTS: No active deforming arthropathy. LABS: WBC 11.2, hemoglobin 10.1. Sodium 137, potassium 4.2. Creatinine is 2.03. ASSESSMENT: 1. Acute on chronic right big toe wound with osteomyelitis of the head of the right first metatarsal with surrounding cellulitis with failure of outpatient treatment. 2. Increased creatinine with chronic kidney disease, stage III. 3. History of hyponatremia. 4. Increased white count. 5. Anemia, normocytic; anemia of chronic disease. 6. Diabetes mellitus, type 2. 7. Peripheral neuropathy. 8. Gastroesophageal reflux disease. 9. History of weight loss. 10.Cholecystectomy. 11.Depression. 12.History of gait dysfunction. Uses a cane for ambulation. 13.History of nicotine dependence. 14.History of ethanol. RECOMMENDATIONS AND DISCUSSION: I recommend to continue current medications, continue with the monitoring, symptomatic treatment. Otherwise at this time I recommend to continue the broad-spectrum IV antibiotics. Will monitor creatinine closely and repeat labs. Guarded prognosis because of multiple complex medical issues. Further recommendations to follow. MMODL / IJN: [id number] /
[2018-12-24] MEDS: CEFEPIME 2 GM in SODIUM CHLORIDE 0.9% 100 ML IVPB SCH (20:25)
[2018-12-24] MEDS: CYANOCOBALAMIN 500 MCG TAB PO SCH (20:27)
[2018-12-24] MEDS: LISINOPRIL 2.5 MG TAB PO SCH (20:27)
[2018-12-24] MEDS: TEMAZEPAM 15 MG CAP PO PRN (20:48)
[2018-12-24 22:22] LABS: Glucose,Whole Blood 118 mg/dL (75-99)
[2018-12-25] MEDS: SODIUM CHLORIDE 0.9% 1,000 ML IV SCH (05:33)
[2018-12-25 07:17] LABS: Glucose,Whole Blood 88 mg/dL (75-99)
[2018-12-25] MEDS: INSULIN ASPART (NovoLOG) 100 UNIT/ML VIAL SQ SCH ×4 (07:34→21:47)
[2018-12-25] MEDS: PANTOPRAZOLE 40 MG TABLET PO SCH (08:19)
[2018-12-25] MEDS: HEPARIN SODIUM,PORCINE 5,000 UNIT/ML 1 ML VIAL SQ SCH ×2 (08:19→20:22)
[2018-12-25] MEDS: CEFEPIME 2 GM in SODIUM CHLORIDE 0.9% 100 ML IVPB SCH (08:20)
[2018-12-25 10:02] LABS: Calcium 8.6 mg/dL (8.4-10.2); Potassium 4.2 mmol/L (3.5-5.1)
[2018-12-25 10:27] LABS: Basophils % (A) 1 %; Eosinophils # (A) 0.4 k/uL (0-0.7); Eosinophils % (A) 5 %; HCT 27.9 % (39.0-53.0); Lymphocytes # (A) 1.4 k/uL (1.0-4.8); Lymphocytes % (A) 17 %; MCH 32.3 pg (25.0-35.0); MCHC 32.4 g/dL (31.0-37.0); MCV 99.8 fL (80.0-100.0); Mean Platelet Volume 7.4; Monocytes # (A) 0.4 k/uL (0-1.0); Monocytes % (A) 5 %; Neutrophils # (A) 5.8 k/uL (1.3-7.7); Neutrophils % (A) 71 %; Platelet Count 318 k/uL (150-450); RBC 2.79 m/uL (4.30-5.90); RDW 14.6 % (11.5-15.5); WBC 8.2 k/uL (3.8-10.6)
[2018-12-25] MEDS: MULTIVITAMINS, THERA 1 EACH TAB PO SCH (11:13)
[2018-12-25] MEDS: THIAMINE 100 MG TAB PO SCH (11:13)
[2018-12-25] MEDS: FOLIC ACID 1 MG TAB PO SCH (11:13)
[2018-12-25 12:12] LABS: Glucose,Whole Blood 99 mg/dL (75-99)
[2018-12-25 12:50] VITALS: RESP 16
[2018-12-25] MEDS: VANCOMYCIN 1,750 MG in SODIUM CHLORIDE 0.9% 500 ML 500 ML IVPB SCH (14:05)
[2018-12-25 17:42] LABS: Glucose,Whole Blood 123 mg/dL (75-99)
--- NOTE | 2018-12-25 20:10 | PN ---
PROGRESS NOTE DATE OF SERVICE: 12/25/2018 This 63-year-old gentleman admitted with significant osteomyelitis of the right big toe and failure of outpatient treatment, is being closely monitored at this time. The cultures are showing negative so far. Infectious Disease is following the patient. No chest pain. No palpitations. No fever. PHYSICAL EXAM: Alert and oriented x3. Pulse 65, blood pressure 101/63, respirations 16, temperature 98.4, pulse ox 98% on room air HEENT: Conjunctivae normal. Oral mucosa moist. NECK: No jugular venous distention. No lymph node enlargement. CARDIOVASCULAR: S1, S2. RESPIRATORY: Diminished breath sounds at the bases. No rhonchi, no crackles. ABDOMEN: Soft, nontender. LEGS: Right foot osteomyelitis. NERVOUS SYSTEM: No focal deficits. LABS: WBC 8.2, hemoglobin is 9, creatinine is 1.82. The previous creatinine was 2.03, improving. ASSESSMENT: 1. Acute on chronic right big toe wound with possible underlying osteomyelitis of the head of the right first metatarsal with surrounding cellulitis with failure of outpatient treatment. 2. Increased creatinine, chronic kidney disease stage III. 3. Some acute component with acute renal failure with acute tubular necrosis. 4. History of hyponatremia. 5. Increased WBC. 6. Anemia, normocytic anemia of chronic disease. 7. Diabetes mellitus type 2. 8. Peripheral neuropathy. 9. Gastroesophageal reflux disease. 10.History of weight loss. 11.History of cholecystectomy. 12.History of depression. 13.Gait dysfunction, uses a cane for ambulation. 14.History of nicotine dependence. 15.History of EtOH. RECOMMENDATIONS AND DISCUSSION: Recommend to continue current medications, continue to monitor, continue symptomatic treatment. Continue with antibiotics, possibly PICC line and long-term antibiotics. Guarded prognosis because of multiple complex medical issues. Further recommendations to follow. MMODL / IJN: [id number] /
[2018-12-25] MEDS: CYANOCOBALAMIN 500 MCG TAB PO SCH (20:21)
[2018-12-25] MEDS: LISINOPRIL 2.5 MG TAB PO SCH (20:21)
[2018-12-25] MEDS: TEMAZEPAM 15 MG CAP PO PRN (20:35)
[2018-12-25 20:47] LABS: Glucose,Whole Blood 100 mg/dL (75-99)
[2018-12-26] MEDS: SODIUM CHLORIDE 0.9% 1,000 ML IV SCH (05:00)
[2018-12-26] MEDS: VANCOMYCIN 1,750 MG in SODIUM CHLORIDE 0.9% 500 ML 500 ML IVPB SCH (05:16)
[2018-12-26 07:21] LABS: Glucose,Whole Blood 88 mg/dL (75-99)
[2018-12-26] MEDS: INSULIN ASPART (NovoLOG) 100 UNIT/ML VIAL SQ SCH ×4 (07:36→21:10)
[2018-12-26 08:47] LABS: Basophils % (A) 0 %; Eosinophils # (A) 0.4 k/uL (0-0.7); Eosinophils % (A) 5 %; HCT 30.6 % (39.0-53.0); HGB 9.7 gm/dL (13.0-17.5); Lymphocytes # (A) 1.5 k/uL (1.0-4.8); Lymphocytes % (A) 17 %; MCHC 31.7 g/dL (31.0-37.0); MCV 100.7 fL (80.0-100.0); Macrocytosis Slight; Mean Platelet Volume 7.6; Monocytes # (A) 0.4 k/uL (0-1.0); Monocytes % (A) 4 %; Neutrophils # (A) 6.3 k/uL (1.3-7.7); Neutrophils % (A) 72 %; Platelet Count 393 k/uL (150-450); RBC 3.04 m/uL (4.30-5.90); RDW 14.8 % (11.5-15.5); WBC 8.8 k/uL (3.8-10.6)
[2018-12-26] MEDS: HEPARIN SODIUM,PORCINE 5,000 UNIT/ML 1 ML VIAL SQ SCH ×2 (08:48→21:10)
[2018-12-26] MEDS: MULTIVITAMINS, THERA 1 EACH TAB PO SCH (08:48)
[2018-12-26] MEDS: PANTOPRAZOLE 40 MG TABLET PO SCH (08:48)
[2018-12-26] MEDS: FOLIC ACID 1 MG TAB PO SCH (08:48)
[2018-12-26] MEDS: THIAMINE 100 MG TAB PO SCH (08:48)
[2018-12-26 08:53] LABS: Prothrombin Time 10.7 sec (9.0-12.0)
[2018-12-26] MEDS ORDERED: CEFEPIME 2 GM in SODIUM CHLORIDE 0.9% 100 ML IVPB SCH (09:00)
[2018-12-26 09:01] LABS: Calcium 9.1 mg/dL (8.4-10.2); Potassium 4.2 mmol/L (3.5-5.1)
[2018-12-26 11:58] LABS: Glucose,Whole Blood 94 mg/dL (75-99)
[2018-12-26 17:31] LABS: Glucose,Whole Blood 102 mg/dL (75-99)
--- NOTE | 2018-12-26 18:56 | PN ---
PROGRESS NOTE I am covering for Dr. Guajardo. DATE OF SERVICE: 12/26/2018. This 63-year-old gentleman who was admitted with acute on chronic right big toe wound with possible underlying osteomyelitis on IV antibiotics. No chest pain. No palpitations. No fever. Outpatient IV antibiotics has been suggested. PHYSICAL EXAM: Alert and oriented times three. Pulse 68, blood pressure 120/77, respirations 16, temperature 98 degrees, pulse ox 97% on room air. HEENT: Conjunctivae normal. NECK: No JVD. CARDIOVASCULAR: S1, S2 muffled. RESPIRATORY: Breath sounds diminished in the bases. No rhonchi. No crackles. ABDOMEN: Soft, nontender. LEGS: No edema. No swelling. Otherwise, right big toe infection cellulitis versus osteomyelitis present. NERVOUS SYSTEM: No focal deficits except some sensory changes in the legs. No focal motor deficits. SKIN as mentioned earlier. LABS: WBC 8.8, hemoglobin 9.7, sodium 140, potassium 4.2. Creatinine 1.85. ASSESSMENT: 1. Acute on chronic right big toe wound with possible underlying osteomyelitis of the head of the first metatarsal with surrounding cellulitis with failure of outpatient treatment. 2. Increased creatinine, chronic with chronic kidney disease stage III. 5. Increased WBC. 6. Anemia, normocytic anemia of chronic disease. 7. Diabetes type 2. 8. Peripheral neuropathy. 9. Gastroesophageal reflux disease. 10.History of weight loss. 11.History of cholecystectomy. 12.History of depression. 13.History of gait dysfunction. Uses a cane as ambulation. 14.History of nicotine dependence. 15.History of EtOH. RECOMMENDATIONS AND DISCUSSION: Recommend to continue current medications, monitoring, management and symptomatic treatment. continue antibiotics. possible PICC and out pt antibiotics for osteo per ID. Dr Guajardo will follow. MMODL / IJN: [id number] / [facility]Anton
[2018-12-26 20:29] LABS: Glucose,Whole Blood 108 mg/dL (75-99)
[2018-12-26] MEDS ORDERED: VANCOMYCIN TROUGH DUE 1 EACH MISC MISCELLANE ONE (21:00)
[2018-12-26] MEDS: CYANOCOBALAMIN 500 MCG TAB PO SCH (21:10)
[2018-12-26] MEDS: LISINOPRIL 2.5 MG TAB PO SCH (21:10)
[2018-12-26] MEDS: TEMAZEPAM 15 MG CAP PO PRN (21:14)
[2018-12-27] MEDS: SODIUM CHLORIDE 0.9% 1,000 ML IV SCH (00:11)
--- NOTE | 2018-12-27 01:48 | PN ---
PROGRESS NOTE DATE OF SERVICE: 12/26/2018 REASON FOR FOLLOW UP: Right foot wound and underlying osteomyelitis. INTERVAL HISTORY: The patient is currently afebrile. Patient has been breathing comfortably. The patient did mention overall discomfort to the right foot wound has decreased in intensity. The swelling and redness has decreased. No chest pain, shortness of breath or cough. No abdominal pain. No diarrhea. PHYSICAL EXAMINATION: Blood pressure is 125/77 with a pulse of 77, temperature 98.1, he is 98% on room air. General description is an elderly male lying in bed in no distress. Respiratory system: Unlabored breathing, clear to auscultation anteriorly. Heart S1, S2. Regular rate and rhythm. ABDOMEN: Soft. No tenderness. Right foot is dressed. Overall swelling and redness has decreased. DIAGNOSTIC IMPRESSION AND PLAN: Patient with right foot chronic nonhealing wound with underlying osteomyelitis. Cultures have been negative for any resistant pathogen. We will switch over antibiotic therapy to Rocephin 2 g daily. Await PICC line placement for outpatient IV antibiotic and continue supportive care. MMODL / IJN: [id number] /
[2018-12-27 07:06] LABS: Glucose,Whole Blood 86 mg/dL (75-99)
[2018-12-27] MEDS: INSULIN ASPART (NovoLOG) 100 UNIT/ML VIAL SQ SCH ×2 (07:09→12:23)
[2018-12-27] MEDS: HEPARIN SODIUM,PORCINE 5,000 UNIT/ML 1 ML VIAL SQ SCH (08:27)
[2018-12-27] MEDS: PANTOPRAZOLE 40 MG TABLET PO SCH (08:29)
[2018-12-27] MEDS: MULTIVITAMINS, THERA 1 EACH TAB PO SCH (08:29)
[2018-12-27] MEDS: THIAMINE 100 MG TAB PO SCH (08:29)
[2018-12-27] MEDS: FOLIC ACID 1 MG TAB PO SCH (08:29)
[2018-12-27] MEDS ORDERED: VANCOMYCIN 1,500 MG in SODIUM CHLORIDE 0.9% 250 ML IVPB SCH (09:00)
--- NOTE | 2018-12-27 09:06 | P.PN ---
Subjective Progress Note Date: 12/27/18 Denny Kovacs is a 63 yo M who is admitted for acute on chronic nonhealing wound at the base of the R great toe. He underwent bone scan which is compatible with cellulitis and metatarsal head osteomyelitis. ID is following and recommending extended course of IV rocephin. 12/27. Pt feeling well today, less pain in the foot, no other concerns. He states it is no longer draining and redness diminished. Pt awaiting PICC line and will need 6 week course of daily rocephin upon discharge. Objective - Vital Signs Vital signs: Vital Signs Temp 98.0 F 12/27/18 04:30 Pulse 66 12/27/18 04:30 Resp 16 12/27/18 04:30 BP 122/76 12/27/18 04:30 Pulse Ox 98 12/27/18 04:30 Intake & Output 12/26/18 12/27/18 12/27/18 18:59 06:59 18:59 Intake Total 1020 Balance 1020 Intake: IV 500 Cefepime 2 gm In Sodium 100 Chloride 0.9% 100 ml @ 200 mls/hr IVPB Q12HR DINA Rx#:[id number] Sodium Chloride 0.9% 1, 400 000 ml @ 50 mls/hr IV . Q20H DINA Rx#:[id number] Oral 520 Other: Voiding Method Toilet # Voids 2 - Exam GEN: Elderly male lying in bed, no distress. Vitals reviewed LUNGS: Unlabored breathing. Clear to auscultation. No wheeze or crackle. HEART: S1, S2, regular rate and rhythm. No loud murmur ABDOMEN: Soft, no tenderness , guarding or rigidity, no organomegaly EXTREMITIES: Right foot with minimal erythema and wound at medial aspect of R 1st MTP joint. No drainage or foul smell SKIN: No rash, no masses palpable. NEUROLOGICAL: The patient is awake, alert, oriented x3, mood and affect normal. - Labs CBC & Chem 7: 12/26/18 08:21 12/26/18 08:21 Labs: Abnormal Lab Results - Last 24 Hours (Table) 12/26/18 12/26/18 12/26/18 Range/Units 08:21 17:14 20:28 Chloride 111 H (98-107) mmol/L Carbon Dioxide 17 L (22-30) mmol/L BUN 23 H (9-20) mg/dL Creatinine 1.85 H (0.66-1.25) mg/dL Glucose 112 H (74-99) mg/dL POC Glucose (mg/dL) 102 H 108 H (75-99) mg/dL Microbiology - Last 24 Hours (Table) 12/23/18 12:18 Blood Culture - Preliminary Blood No Growth after 72 hours Assessment and Plan (1) Cellulitis of right foot Current Visit: Yes Status: Acute Code(s): L03.115 - CELLULITIS OF RIGHT LOWER LIMB SNOMED Code(s): 734139467 (2) Foot osteomyelitis, right Current Visit: Yes Status: Acute Code(s): M86.9 - OSTEOMYELITIS, UNSPECIFIED SNOMED Code(s): 2010936207611072 (3) Type 2 diabetes mellitus with neurologic complication Current Visit: Yes Status: Acute Code(s): E11.49 - TYPE [address] DIABETES [address] [facility] DIABETIC NEUROLOGICAL COMPLICATION SNOMED Code(s): 31914019 (4) CKD (chronic kidney disease) stage 3, GFR 30-59 ml/min Current Visit: Yes Status: Acute Code(s): N18.3 - CHRONIC KIDNEY DISEASE, STAGE 3 (MODERATE) SNOMED Code(s): 169832497 (5) Anemia of chronic disease Current Visit: Yes Status: Acute Code(s): D63.8 - ANEMIA IN OTHER CHRONIC DISEASES CLASSIFIED ELSEWHERE SNOMED Code(s): 292651285 Plan: 1. R great toe cellulitis and osteomyelitis. ID following and recommending rocephin 2 g daily. Pt for PICC today. Discharge planning in progress 2. T2DM with neuropathy. Accucheck/sliding scale 3. CKD3. Continue lisinopril 2.5 mg qhs 4. Anemia of chronic disease 5. Anxiety 6. History of alcoholism GI prophylaxis protonix DVT prophylaxis heparin
[2018-12-27 12:05] LABS: Glucose,Whole Blood 95 mg/dL (75-99)
[2018-12-27] MEDS ORDERED: LIDOCAINE 1% INJ 10MG/ML (20 ML MDV) SQ ONE (12:43)
[2018-12-27 13:49] VITALS: BP 119/75; PULSE 69; TEMP 98.1
--- NOTE | 2018-12-27 13:54 | IR ---
PICC LINE PLACEMENT: HISTORY: Infection requiring long-term antibiotic therapy PROCEDURE: Ultrasound and fluoroscopic guidance of PICC line placement. COMPLICATIONS: None ANESTHESIA: 1. 1% Lidocaine locally. FINDINGS/TECHNIQUE: The procedure was explained to the patient. The risks, complications, benefits and alternatives were discussed and any questions were answered. Informed consent was obtained. The patient was placed supine on the fluoroscopic table and prepped and draped in the usual sterile fash ion. Utilizing a 21 gauge needle and sonographic and fluoroscopic guidance, access in the left ceph alic vein was achieved and there is placement of a 0.018 guidewire. The vein is patent. A 4-F sheat h was placed over the guidewire. The guidewire and dilator were removed and a 4-F. PICC line was javad kareen through the sheath with the tip at the level of the SVC. The sheath was removed, the catheter wa s flushed and sutured into position. The patient was stable throughout the procedure and remained st able upon discharge from the Department of Radiology. The vein puncture was patent under ultrasound. A angel scale image was obtained to document patency of the vein punctured. All elements of the maximal barrier technique were utilized. FLUOROSCOPY TIME: 0.4 minutes and one image submitted IMPRESSION: Successful PICC line placement under ultrasound and fluoroscopic guidance.
--- NOTE | 2018-12-27 16:19 | PN ---
PROGRESS NOTE DATE OF SERVICE: 12/27/2018 REASON FOR FOLLOWUP: Right foot chronic non-healing wound with underlying osteomyelitis. INTERVAL HISTORY: The patient is currently afebrile. The patient has been breathing comfortably. The patient denies having any chest pain or shortness of breath or cough. No nausea, no vomiting, no abdominal pain or any pain to the right foot area. Overall swelling and redness have improved. PHYSICAL EXAMINATION: His vital signs are stable, with T-max of 98. General description is an elderly male lying in bed in no distress. RESPIRATORY SYSTEM: Unlabored breathing. Clear to auscultation anteriorly. HEART: S1, S2. Regular rate and rhythm. ABDOMEN: Soft. No tenderness. Right foot swelling and redness improved. Wound has decreased in size. DIAGNOSTIC IMPRESSION AND PLAN: Patient with right foot chronic non-healing wound with secondary osteomyelitis. Culture has been negative for any resistant pathogen. Antibiotic has been switched over to Rocephin 2 grams daily for a total of 6 weeks with weekly monitoring of CBC and BMP and sed rate. Local wound care with Aquacel Silver dressing. Follow up in the office in one week. MMODL / IJN: [id number] /
--- NOTE | 2018-12-28 14:12 | P.DS ---
Providers Date of admission: 12/23/18 14:48 Expected date of discharge: 12/27/18 Attending physician: Flakito Guajardo MD Consults: 12/23/18 14:19 Consult Physician Stat Consulting Provider: Vasile Duran Consult Reason/Comments: Cellulitis surrounding open wound of right great toe Do you want consulting provider notified?: Yes 12/23/18 15:21 Consult Physician Routine Consulting Provider: João Rodriguez Consult Reason/Comments: osteo?? Do you want consulting provider notified?: Yes Primary care physician: Wendi Guajardo - Discharge Diagnosis(es) (1) Cellulitis of right foot Status: Acute (2) Foot osteomyelitis, right Status: Acute (3) Type 2 diabetes mellitus with neurologic complication Status: Acute (4) CKD (chronic kidney disease) stage 3, GFR 30-59 ml/min Status: Acute (5) Anemia of chronic disease Status: Acute Hospital Course: Patient is 63 year male with a past medical history significant for a chronic nonhealing wound to the right foot at the base of his right big toe that has been there for almost a year now and has been previously treated by mixer attendant. He recently moved to the area and had a outpatient appointment with a local mixer attendant who noticed worsening cellulitis and subsequently sent the patient to the ER. Pt states his wound has been present for almost a year now and has not healed. Pt notes history of diabetic neuropathy so has not had foot pain. He describes pressure and discomfort with ambulation and palpation, denies purulent drainage, swelling, redness and warmth. In the ED, XR demonstrated soft tissue swelling and bony demineralization concerning for Osteomyelitis. Pt was admitted to medicine and started on rocephin. Infectious disease was consulted. Pt underwent bone scan which showed osteomyelitis of 1st metatarsal. Wound culture was performed which showed only normal skin daniel. He had a PICC placed and is discharged on rocephin. He will continue daily infusion for a total 6 week duration of treatment. Pt will follow up with PCP within 1 week of discharge. Discharge exam: GEN: Elderly male lying in bed, no distress. Vitals reviewed LUNGS: Unlabored breathing. Clear to auscultation. No wheeze or crackle. HEART: S1, S2, regular rate and rhythm. No loud murmur ABDOMEN: Soft, no tenderness , guarding or rigidity, no organomegaly EXTREMITIES: Right foot with minimal erythema and wound at medial aspect of R 1st MTP joint. No drainage or foul smell SKIN: No rash, no masses palpable. NEUROLOGICAL: The patient is awake, alert, oriented x3, mood and affect normal. Patient Condition at Discharge: Stable Plan - Discharge Summary Discharge Rx Participant: No New Discharge Prescriptions: New cefTRIAXone [Rocephin] 2,000 mg IVP Q24HR #42 vial Continue Pantoprazole Sodium [Protonix] 40 mg PO HS Cyanocobalamin [Vitamin B-12] 1,000 mcg PO HS Lisinopril [Zestril] 2.5 mg PO HS Melatonin Gummies(Unknown Dose) 1 tab PO HS Discharge Medication List Pantoprazole Sodium [Protonix] 40 mg PO HS 11/29/18 [History] Cyanocobalamin [Vitamin B-12] 1,000 mcg PO HS 12/23/18 [History] Lisinopril [Zestril] 2.5 mg PO HS 12/23/18 [History] Melatonin Gummies(Unknown Dose) 1 tab PO HS 12/23/18 [History] cefTRIAXone [Rocephin] 2,000 mg IVP Q24HR #42 vial 12/27/18 [Rx] Follow up Appointment(s)/Referral(s): Wendi Guajardo DO [Primary Care Provider] - 12/28/18 10:15 am [facility], [NON-STAFF] - [facility],Infusion [NON-STAFF] - João Rodriguez MD [STAFF PHYSICIAN] - 01/03/19 10:00 am Ambulatory/Diagnostic Orders: Basic Metabolic Panel [LAB.AMB] Time Frame: 6 Weeks, Location: None Selected C Reactive Protein [LAB.AMB] Location: None Selected Complete Blood Count w/diff [LAB.AMB] Location: None Selected Erythrocyte Sedimentation Rate [LAB.AMB] Location: None Selected Patient Instructions/Handouts: Osteomyelitis (DC), Peripherally Inserted Central Catheters and Midline Catheters (DC) Discharge Disposition: HOME WITH HOME HEALTH SERVICES
--- NOTE | 2018-12-29 14:27 | CDI ---
Documentation Clarification Form Date: 12/29/18 From: Francine De Paz Phone: If you have a question regarding this query, please contact Mary Motta at [phone] between 8am and 5pm. Admit Date: 12/23/2018 2:48:00 PM Patient Name: Denny Kovacs Visit Number: [id number] Discharge Date: 12/27/2018 4:22:00 PM ATTENTION: The Clinical Documentation Specialists (CDI) and [facility] Coding Staff appreciate your assistance in clarifying documentation. Please respond to the clarification below the line at the bottom and electronically sign. The CDI & [facility] Coding staff will review the response and follow-up if needed. Please note: Queries are made part of the Legal Health Record. If you have any questions, please contact the author of this message via ITS. Dr. Flakito Guajardo The patient presented with cellulitis of the right foot. History/Risk Factors: Diabetes, ulcer of right foot, osteomyelitis Clinical Indicators: Swelling and redness Radiology findings: Bone scan R foot: Findings are compatible with a cellulitis with osteomyelitis of the head of the right first metatarsal. Vital Signs: T. 98.0, P. 85, R. 18, BP 98/66 Treatment: IV Cefepime, IV Ceftriaxone Sodium, IV Zosyn, IV Vancomycin Consults: Dr. Rodriguez documented cellulitis of the right foot. In your professional opinion, can you please clarify if the cellulitis is associated with? Diabetes Mellitus Other, please specify Unable to determine Diabetes mellius MTDD
== END 2018-12-27 16:22 | disposition home health service (06) | DRG 638 ==
LOC: EC 10:50 → 4MS4W 14:48
PROVIDERS: ADMIT Family Medicine; ATTEND Family Medicine
PROC: 02HV33Z Insertion of Infusion Device into Superior Vena Cava, Percutaneous Approach (ICD-10-PCS; principal; 2018-12-27 12:39)
DX: E11.69 Type 2 diabetes mellitus with other specified complication (principal); L03.115 Cellulitis of right lower limb; M86.9 Osteomyelitis, unspecified; E11.628 Type 2 diabetes mellitus with other skin complications; N17.0 Acute kidney failure with tubular necrosis; E11.49 Type 2 diabetes mellitus with other diabetic neurological complication; E11.22 Type 2 diabetes mellitus with diabetic chronic kidney disease; E11.42 Type 2 diabetes mellitus with diabetic polyneuropathy; N18.3 Chronic kidney disease, stage 3 (moderate); E11.621 Type 2 diabetes mellitus with foot ulcer; F32.9 Major depressive disorder, single episode, unspecified; D63.8 Anemia in other chronic diseases classified elsewhere; K21.9 Gastro-esophageal reflux disease without esophagitis; L97.519 Non-pressure chronic ulcer of other part of right foot with unspecified severity; F41.9 Anxiety disorder, unspecified; R26.9 Unspecified abnormalities of gait and mobility; Z79.899 Other long term (current) drug therapy; Z90.49 Acquired absence of other specified parts of digestive tract; Z87.891 Personal history of nicotine dependence; Z89.022 Acquired absence of left finger(s); Z98.42 Cataract extraction status, left eye; Z98.41 Cataract extraction status, right eye; Z96.1 Presence of intraocular lens; Z83.2 Family history of diseases of the blood and blood-forming organs and certain disorders involving the immune mechanism
CPT/HCPCS: 36415; 36573; 76937; 77001; 78315; 80048; 80053; 80202; 81001; 82565; 83605; 85025; 85610; 87040; 87070; 87205; 96365; 99284

== ENCOUNTER 2020-02-21 21:20 | Inpatient (IN) | payer BC, MEDICARE ==
[2020-02-21 22:26] LABS: Basophils # (A) 0.1 k/uL (0-0.2); Basophils % (A) 1 %; Eosinophils # (A) 0.1 k/uL (0-0.7); Eosinophils % (A) 1 %; HCT 33.7 % (39.0-53.0); HGB 11.4 gm/dL (13.0-17.5); Lymphocytes # (A) 0.3 k/uL (1.0-4.8); Lymphocytes % (A) 3 %; MCH 33.4 pg (25.0-35.0); MCHC 33.9 g/dL (31.0-37.0); MCV 98.5 fL (80.0-100.0); Mean Platelet Volume 7.6; Monocytes # (A) 0.4 k/uL (0-1.0); Monocytes % (A) 5 %; Neutrophils # (A) 8.2 k/uL (1.3-7.7); Neutrophils % (A) 90 %; Platelet Count 186 k/uL (150-450); RBC 3.43 m/uL (4.30-5.90); RDW 13.9 % (11.5-15.5); WBC 9.1 k/uL (3.8-10.6)
[2020-02-21 22:29] LABS: Partial Thromboplastin Time 26.7 sec (22.0-30.0); Prothrombin Time 10.1 sec (9.0-12.0)
[2020-02-21 22:35] LABS: Albumin 3.9 g/dL (3.5-5.0); Calcium 8.2 mg/dL (8.4-10.2); Magnesium 1.8 mg/dL (1.6-2.3); Phosphorus 2.3 mg/dL (2.5-4.5); Potassium 4.1 mmol/L (3.5-5.1); Total Protein 6.5 g/dL (6.3-8.2)
--- NOTE | 2020-02-21 22:53 | XR ---
EXAMINATION TYPE: XR chest 2V DATE OF EXAM: 02/21/2020 COMPARISON: NONE HISTORY: Abdominal pain TECHNIQUE: 2 views FINDINGS: There is no heart failure nor confluent pneumonic infiltrate. Costophrenic angles are clear . Bony thorax is intact. IMPRESSION: No active cardiopulmonary disease.
--- NOTE | 2020-02-21 22:54 | CT ---
EXAMINATION TYPE: CT brain wo con DATE OF EXAM: 02/21/2020 COMPARISON: None HISTORY: wekness, fall CT DLP: 1217.4 mGycm Automated exposure control for dose reduction was used. Ventricles have normal size. There is no mass effect nor midline shift. There is no sign of intracran ial hemorrhage. Calvarium is intact. There is mild cerebral atrophy. IMPRESSION: Mild atrophy. No acute intracranial abnormality.
[2020-02-21 23:23] LABS: Uric Acid 8.8 mg/dL (3.5-8.5)
[2020-02-21] MEDS ORDERED: NALOXONE 0.4 MG/ML 1 ML VIAL IV PRN (23:37)
[2020-02-21] MEDS ORDERED: LORazepam 2 MG/ML INJ IV PRN ×3 (23:47)
[2020-02-21] MEDS ORDERED: THIAMINE 100 MG/ML 2 ML VIAL IM STA (23:47)
[2020-02-22] MEDS: SODIUM CHLORIDE 0.9% 1,000 ML IV SCH ×4 (00:05→14:02)
[2020-02-22] MEDS: THIAMINE 100 MG TAB PO SCH ×3 (00:06→18:51)
--- NOTE | 2020-02-22 01:11 | ED ---
General Adult HPI - General Source: patient, family Mode of arrival: wheelchair Limitations: no limitations <Sophie Lafleur - Last Filed: 02/22/20 01:06> <Grant Camacho - Last Filed: 02/24/20 00:04> - General Chief complaint: Weakness Stated complaint: Fall,weakness Time Seen by Provider: 02/21/20 21:37 - History of Present Illness Initial comments: 64-year-old male history of alcohol abuse, hyponatremia presenting to the emergency room today for chief complaint of generalized weakness, falls. Patient states that he has been off balance and had multiple falls today. He states he feels weak all over. Patient states he is recently admitted [facility] for hyponatremia. Patient states that earlier this week he was vomiting he states that he currently does not feel nauseated however he fee ls weak all over and off balance. He states that he fell is unsure if he hit his head or not he denies loss of consciousness. He denies extremity injuries Patient denies confusion or headache. Denies CP/SOB. patient denies CHF, leg swelling. Denies additional complaints. Patient upon arrival is AAOx4. Nontoxic in appearance. pleasant (Sophie Lafleur) - Related Data Home Medications Medication Instructions Recorded Confirmed Lansoprazole [Prevacid] 15 mg PO DAILY 02/21/20 02/21/20 Vitamin B (Unknown Which) 1 tab PO DAILY 02/21/20 02/21/20 Allergies Allergy/AdvReac Type Severity Reaction Status Date / Time No Known Allergies Allergy Verified 02/21/20 22:40 Review of Systems ROS Other: All systems not noted in ROS Statement are negative. <Sophie Lafleur - Last Filed: 02/22/20 01:06> ROS Other: All systems not noted in ROS Statement are negative. <Grant Camacho - Last Filed: 02/24/20 00:04> ROS Statement: Those systems with pertinent positive or pertinent negative responses have been documented in the HPI. Past Medical History Additional Past Medical History / Comment(s): recent admission to [facility] for low sodium affecting kidney functions-October 2018,tremors,diarrhea,increased fatigue, neuropathy, previous DM History of Any Multi-Drug Resistant Organisms: None Reported Past Surgical History: Cholecystectomy Additional Past Surgical History / Comment(s): traumatic amputation of finger Past Anesthesia/Blood Transfusion Reactions: No Reported Reaction Additional Past Anesthesia/Blood Transfusion Reaction / Comment(s): unknown family hx Past Psychological History: Depression Past Alcohol Use History: None Reported Past Drug Use History: None Reported - Past Family History Mother Family Medical History: No Reported History Father Family Medical History: Blood Disorder, Cancer Brother(s) Family Medical History: Deep Vein Thrombosis (DVT) <Sophie Lafleur - Last Filed: 02/22/20 01:06> General Exam Limitations: no limitations <Sophie Lafleur - Last Filed: 02/22/20 01:06> - General Exam Comments Initial Comments: General: The patient is awake and alert, in no distress Eye: +3 mm pupils are equal, round and reactive to light, extra-ocular movements are intact. No nystagmus. There is normal conjunctiva bilaterally. No signs of icterus. Ears, nose, mouth and throat: There are moist mucous membranes and no oral lesions. Neck: The neck is supple, there is no tenderness or JVD. Cardiovascular: There is a regular rate and rhythm. No murmur, rub or gallop is appreciated. Respiratory: Lungs are clear to auscultation, respirations are non-labored, breath sounds are equal. No wheezes, stridor, rales, or rhonchi. Gastrointestinal: Soft, non-distended, non-tender abdomen without masses or organomegaly noted. There is no rebound or guarding present. Musculoskeletal: Normal ROM, no tenderness. Strength 5/5. Sensation intact. Radial pulses equal bilaterally 2+. Neurological: A&O x 3. CN II-XII intact grossly, There are no obvious motor or sensory deficits. Coordination appears grossly intact. Speech is normal. Skin: Skin is warm and dry and no rashes or lesions are noted. No LE edema. Psychiatric: Cooperative, appropriate mood & affect, normal judgment. (Sophie Lafleur) Course Vital Signs 02/21/20 02/21/20 02/21/20 21:27 22:06 23:26 Temperature 99.0 F Pulse Rate 95 80 88 Pulse Rate [ Right Supine] Respiratory 18 18 17 Rate Blood Pressure 148/90 128/87 125/90 Blood Pressure [Right Arm Supine] O2 Sat by Pulse 96 97 98 Oximetry 02/22/20 02/22/20 02/22/20 06:29 08:00 12:00 Temperature 97.5 F L Pulse Rate 78 Pulse Rate [ 71 72 Right Supine] Respiratory 18 16 16 Rate Blood Pressure 128/85 Blood Pressure 128/85 123/76 [Right Arm Supine] O2 Sat by Pulse 96 94 L 97 Oximetry 02/22/20 02/22/20 02/23/20 16:00 21:08 00:00 Temperature 97.8 F Pulse Rate 75 80 Pulse Rate [ 72 Right Supine] Respiratory 16 17 16 Rate Blood Pressure 122/72 Blood Pressure 117/68 [Right Arm Supine] O2 Sat by Pulse 97 98 Oximetry 02/23/20 02/23/20 02/23/20 02:39 03:44 08:00 Temperature 98.2 F 97.9 F Pulse Rate 86 Pulse Rate [ 74 Right Supine] Respiratory 16 16 20 Rate Blood Pressure 154/92 Blood Pressure 140/75 [Right Arm Supine] O2 Sat by Pulse 98 98 Oximetry 02/23/20 11:25 Temperature 97.7 F Pulse Rate Pulse Rate [ 70 Right Supine] Respiratory 20 Rate Blood Pressure Blood Pressure 121/82 [Right Arm Supine] O2 Sat by Pulse 100 Oximetry Medical Decision Making - Lab Data Result diagrams: 02/21/20 21:58 02/21/20 21:58 <Sophie Lafleur - Last Filed: 02/22/20 01:06> - Lab Data Result diagrams: 02/21/20 21:58 02/23/20 11:09 <Grant Camacho - Last Filed: 02/24/20 00:04> - Medical Decision Making Hx of previous vomiting, none current. No VALDIVIA, AAOx4 Normal GCS. Patietn has no focal deficits. ETOH hx Sodium 113. Patient will be corrected with NaCL per attending recommendations. patient is agreeable to admission. Unable to provide urine at this time. Pt cr increased from previous baseline. Patie ntis agreeable to admission and care plan. Nephrology on consultation. urine studies pending. Dr. Guajardo accepted patient>Dr camacho agreeable to care plan. (Sophie Lafleur) I saw this patient in conjunction with the physician rehab care assistant. I performed independent history and physical exam. Agree with case management. (Grant Camacho) - Lab Data Lab Results 02/21/20 02/21/20 02/21/20 Range/Units 21:58 21:58 21:58 WBC 9.1 (3.8-10.6) k/uL RBC 3.43 L (4.30-5.90) m/uL Hgb 11.4 L (13.0-17.5) gm/dL Hct 33.7 L (39.0-53.0) % MCV 98.5 (80.0-100.0) fL MCH 33.4 (25.0-35.0) pg MCHC 33.9 (31.0-37.0) g/dL RDW 13.9 (11.5-15.5) % Plt Count 186 (150-450) k/uL Neutrophils % 90 % Lymphocytes % 3 % Monocytes % 5 % Eosinophils % 1 % Basophils % 1 % Neutrophils # 8.2 H (1.3-7.7) k/uL Lymphocytes # 0.3 L (1.0-4.8) k/uL Monocytes # 0.4 (0-1.0) k/uL Eosinophils # 0.1 (0-0.7) k/uL Basophils # 0.1 (0-0.2) k/uL PT 10.1 (9.0-12.0) sec INR 1.0 (<1.2) APTT 26.7 (22.0-30.0) sec Sodium 113 L* (137-145) mmol/L Potassium 4.1 (3.5-5.1) mmol/L Chloride 78 L (98-107) mmol/L Carbon Dioxide 25 (22-30) mmol/L Anion Gap 10 mmol/L BUN 41 H (9-20) mg/dL Creatinine 2.36 H (0.66-1.25) mg/dL Est GFR (CKD-EPI)AfAm 32 (>60 ml/min/1.73 sqM) Est GFR (CKD-EPI)NonAf 28 (>60 ml/min/1.73 sqM) Glucose 118 H (74-99) mg/dL Osmolality (280-301) mosm/kg Plasma Lactic Acid Tod (0.7-2.0) mmol/L Uric Acid (3.5-8.5) mg/dL Calcium 8.2 L (8.4-10.2) mg/dL Phosphorus 2.3 L (2.5-4.5) mg/dL Magnesium 1.8 (1.6-2.3) mg/dL Total Bilirubin 1.0 (0.2-1.3) mg/dL AST 71 H (17-59) U/L ALT 37 (4-49) U/L Alkaline Phosphatase 163 H (38-126) U/L Troponin I (0.000-0.034) ng/mL NT-Pro-B Natriuret Pep pg/mL Total Protein 6.5 (6.3-8.2) g/dL Albumin 3.9 (3.5-5.0) g/dL TSH 2.600 (0.465-4.680) mIU/L Cortisol ug/dL 02/21/20 02/21/20 02/21/20 Range/Units 21:58 21:58 21:58 WBC (3.8-10.6) k/uL RBC (4.30-5.90) m/uL Hgb (13.0-17.5) gm/dL Hct (39.0-53.0) % MCV (80.0-100.0) fL MCH (25.0-35.0) pg MCHC (31.0-37.0) g/dL RDW (11.5-15.5) % Plt Count (150-450) k/uL Neutrophils % % Lymphocytes % % Monocytes % % Eosinophils % % Basophils % % Neutrophils # (1.3-7.7) k/uL Lymphocytes # (1.0-4.8) k/uL Monocytes # (0-1.0) k/uL Eosinophils # (0-0.7) k/uL Basophils # (0-0.2) k/uL PT (9.0-12.0) sec INR (<1.2) APTT (22.0-30.0) sec Sodium (137-145) mmol/L Potassium (3.5-5.1) mmol/L Chloride (98-107) mmol/L Carbon Dioxide (22-30) mmol/L Anion Gap mmol/L BUN (9-20) mg/dL Creatinine (0.66-1.25) mg/dL Est GFR (CKD-EPI)AfAm (>60 ml/min/1.73 sqM) Est GFR (CKD-EPI)NonAf (>60 ml/min/1.73 sqM) Glucose (74-99) mg/dL Osmolality (280-301) mosm/kg Plasma Lactic Acid Tod 1.3 (0.7-2.0) mmol/L Uric Acid (3.5-8.5) mg/dL Calcium (8.4-10.2) mg/dL Phosphorus (2.5-4.5) mg/dL Magnesium (1.6-2.3) mg/dL Total Bilirubin (0.2-1.3) mg/dL AST (17-59) U/L ALT (4-49) U/L Alkaline Phosphatase (38-126) U/L Troponin I 0.012 (0.000-0.034) ng/mL NT-Pro-B Natriuret Pep 1320 pg/mL Total Protein (6.3-8.2) g/dL Albumin (3.5-5.0) g/dL TSH (0.465-4.680) mIU/L Cortisol ug/dL 02/21/20 Range/Units 23:08 WBC (3.8-10.6) k/uL RBC (4.30-5.90) m/uL Hgb (13.0-17.5) gm/dL Hct (39.0-53.0) % MCV (80.0-100.0) fL MCH (25.0-35.0) pg MCHC (31.0-37.0) g/dL RDW (11.5-15.5) % Plt Count (150-450) k/uL Neutrophils % % Lymphocytes % % Monocytes % % Eosinophils % % Basophils % % Neutrophils # (1.3-7.7) k/uL Lymphocytes # (1.0-4.8) k/uL Monocytes # (0-1.0) k/uL Eosinophils # (0-0.7) k/uL Basophils # (0-0.2) k/uL PT (9.0-12.0) sec INR (<1.2) APTT (22.0-30.0) sec Sodium (137-145) mmol/L Potassium (3.5-5.1) mmol/L Chloride (98-107) mmol/L Carbon Dioxide (22-30) mmol/L Anion Gap mmol/L BUN (9-20) mg/dL Creatinine (0.66-1.25) mg/dL Est GFR (CKD-EPI)AfAm (>60 ml/min/1.73 sqM) Est GFR (CKD-EPI)NonAf (>60 ml/min/1.73 sqM) Glucose (74-99) mg/dL Osmolality 253 L (280-301) mosm/kg Plasma Lactic Acid Tod (0.7-2.0) mmol/L Uric Acid 8.8 H (3.5-8.5) mg/dL Calcium (8.4-10.2) mg/dL Phosphorus (2.5-4.5) mg/dL Magnesium (1.6-2.3) mg/dL Total Bilirubin (0.2-1.3) mg/dL AST (17-59) U/L ALT (4-49) U/L Alkaline Phosphatase (38-126) U/L Troponin I (0.000-0.034) ng/mL NT-Pro-B Natriuret Pep pg/mL Total Protein (6.3-8.2) g/dL Albumin (3.5-5.0) g/dL TSH (0.465-4.680) mIU/L Cortisol 30 ug/dL Disposition Is patient prescribed a controlled substance at d/c from ED?: No Time of Disposition: 01:11 Decision to Admit Reason: Admit from EC Decision Date: 02/21/20 Decision Time: 23:00 <Sophie Lafleur - Last Filed: 02/22/20 01:06> <Grant Camacho - Last Filed: 02/24/20 00:04> Clinical Impression: Hyponatremia, Weakness Disposition: ADMITTED IP TO THIS [facility] Condition: Stable
[2020-02-22 02:36] LABS: Appearance,Urine Clear (Clear); Bilirubin,Urine Negative (Negative); Blood,Urine Small (Negative); Color,Urine Light Yellow; Glucose,Urine (UA) Negative (Negative); Ketones,Urine Negative (Negative); Leukocyte Esterase,Urine Negative (Negative); Nitrite,Urine Negative (Negative); PH, Urine 6.5 (5.0-8.0); Protein,Urine 1+ (Negative); RBC,Urine <1 /hpf (0-5); Specific Gravity,Urine 1.005 (1.001-1.035); Squamous Epithelial Cell,Urine <1 /hpf (0-4); Urobilinogen,Urine <2.0 mg/dL (<2.0); WBC,Urine 1 /hpf (0-5)
[2020-02-22 03:15] LABS: Albumin 3.7 g/dL (3.5-5.0); Potassium 3.9 mmol/L (3.5-5.1); Total Bilirubin 0.9 mg/dL (0.2-1.3); Total Protein 6.3 g/dL (6.3-8.2)
[2020-02-22] MEDS ORDERED: INFLUENZA VACCINE (6 MOS+) 60 MCG/0.5 ML SYRINGE IM ONE (11:25)
--- NOTE | 2020-02-22 15:05 | CONS ---
CONSULTATION REASON FOR CONSULT: Hyponatremia. HISTORY OF PRESENT ILLNESS: Patient is a 64-year-old male who was admitted to the hospital with complaints of weakness, not feeling well. He also had a fall at home. Patient does have history of alcohol abuse. He states he was admitted with hyponatremia about 1-1/2 years ago and his sodium level had been within range after that. He denied use of any new medications recently. At home patient was not on any diuretics. He states his diarrhea nausea and vomiting has improved now. Patient is maintained on IV saline and his sodium has improved to 118 this morning from May 02 yesterday. Creatinine was 2.36. It is down to 2.2. Previous creatinine was 1.8 on 12/27/2018. PAST MEDICAL HISTORY: Significant for CKD stage 3B to 4 with previous creatinine around 1.9-2 mg/dL in 2019, previous hyponatremia neuropathy. PAST SURGICAL HISTORY: Cholecystectomy, amputation of finger, which was traumatic. MEDICATIONS: Prior to admission included Prevacid, vitamin B. ALLERGIES: None. REVIEW OF SYSTEMS: As per HPI. Other systems negative. PHYSICAL EXAMINATION: Patient is comfortable, awake, not in any acute distress. Alert, oriented x3. Blood pressure is 128/85, heart rate 71 per minute, he is afebrile. Examination of the heart S1, S2. Examination of the lungs, bilateral breath sounds are heard. Abdomen is soft, nontender. Examination of the lower extremities shows no evidence of edema. ROUSTABOUT PUSHER exam grossly intact. LABS: Show urine osmolality 199, sodium 115, potassium 3.9, chloride 1, BUN 41, creatinine 2.24, hemoglobin 11.4 g/dL, UA 1+ protein, small blood, no cells. ASSESSMENT: 1. Hypovolemic hyponatremia currently improving with normal saline. I will continue saline at the current rate and repeat sodium this afternoon. 2. Acute kidney injury on top of chronic kidney disease, mostly prerenal. Continue with IV fluids. Expect improvement with IV hydration. No nephrotoxic medications on board. 3. Chronic kidney disease with previous creatinine about 1.8 mg/dL in 2019. Etiology is likely nephrosclerosis. However, there is trace proteinuria. We will repeat the UA down the road. The patient will need followup for CKD as outpatient. 4. History of depression. PLAN: Continue saline, repeat labs in a.m. Check serum sodium this afternoon. Encourage increased oral intake, particularly protein. Patient will likely need some degree of free water restriction down the road depending on his sodium and he is euvolemic. Thank you for this consultation. Will continue to follow the patient with you during his hospitalization. MMCARAL / IJN: [id number] /
--- NOTE | 2020-02-22 23:01 | P.HPIM ---
History of Present Illness H&P Date: 02/22/20 Chief Complaint: weakness, falls Denny Kovacs is a 64 yo M with PMH of alcoholism who presented to the ED complaining of falls at home and generalized weakness. He states that he has been drinking a pint of hard liquor a night to help him sleep and has not been eating or drinking very well. He also complains that earlier this week he had some nausea and vomiting that he attributes to eating bad food. After this his weakness worsened. He denies fever, chills, chest pain or shortness of breath. On presentation he was hypertensive, labs significant for sodium 113, chlorida 78 and Cr 2.36. Review of Systems All systems: negative Constitutional: Reports malaise, Reports weakness, Denies chills, Denies fever Eyes: denies blurred vision, denies pain Ears, nose, mouth and throat: Denies headache, Denies sore throat Cardiovascular: Denies chest pain, Denies shortness of breath Respiratory: Denies cough Gastrointestinal: Reports nausea, Reports vomiting, Denies abdominal pain, Denies diarrhea Musculoskeletal: Denies myalgias Integumentary: Denies pruritus, Denies rash Neurological: Denies numbness, Denies weakness Psychiatric: Denies anxiety, Denies depression Endocrine: Denies fatigue, Denies weight change Past Medical History Past Medical History: Diabetes Mellitus, GERD/Reflux, Renal Disease Additional Past Medical History / Comment(s): ETOH abuse, hyponatremia, NIDDM type II-lost weight and no longer on any diabetic meds, bilateral feet neuropathy, CKD stage III, chronic anemia, past wound R foot/osteomylitis/cellulitis, constipation alternating with diarrhea. History of Any Multi-Drug Resistant Organisms: None Reported Past Surgical History: Cholecystectomy, Orthopedic Surgery Additional Past Surgical History / Comment(s): L index finger traumatic finger amp/rest of L hand fingers were reattached, colonoscopy, bilateral cataract removals/lens implants then film removed bilateral eyes. Past Anesthesia/Blood Transfusion Reactions: No Reported Reaction, Motion Sick ness Additional Past Anesthesia/Blood Transfusion Reaction / Comment(s): unknown family hx Smoking Status: Current every day smoker - Past Family History Mother Family Medical History: No Reported History Father Family Medical History: Blood Disorder, Cancer Brother(s) Family Medical History: Deep Vein Thrombosis (DVT) Medications and Allergies Home Medications Medication Instructions Recorded Confirmed Type Lansoprazole [Prevacid] 15 mg PO DAILY 02/21/20 02/21/20 History Vitamin B (Unknown Which) 1 tab PO DAILY 02/21/20 02/21/20 History Allergies Allergy/AdvReac Type Severity Reaction Status Date / Time No Known Allergies Allergy Verified 02/21/20 22:40 Physical Exam Vitals: Vital Signs Temp Pulse Pulse Resp BP BP Pulse Ox 02/22/20 21:08 75 17 02/22/20 16:00 97.8 F 72 16 117/68 97 02/22/20 12:00 72 16 123/76 97 02/22/20 08:00 97.5 F L 71 16 128/85 94 L 02/22/20 06:29 78 18 128/85 96 02/21/20 23:26 88 17 125/90 98 Intake and Output 02/22/20 02/22/20 02/22/20 06:59 14:59 22:59 Intake Total 1000 2360 Output Total 600 Balance 400 2360 Intake: Intake, IV Titration 1000 1560 Amount Sodium Chloride 0.9% 1, 1000 1560 000 ml @ 130 mls/hr IV . Q7H42M [facility] Rx#:[id number] Oral 800 Output: Urine 600 Other: # Voids 4 Weight 108.862 kg General: well nourished, well developed, NAD. Vitals reviewed Eyes: PERRL, EOMI, conjunctiva normal HENT: normocephalic, mucus membranes moist Neck: supple, no JVD Lungs: normal respiratory effort, no wheezes or rales CV: Regular rate and rhythm, no murmur. Peripheral pulses 2+ Abdomen: soft, nondistended, no organomegaly Lymph: no cervical or axillary LAD Skin: warm and dry. Neuro: A&Ox3, normal mood and affect Results CBC & Chem 7: 02/21/20 21:58 02/22/20 13:48 Labs: Abnormal Lab Results - Last 24 Hours (Table) 02/21/20 02/21/20 02/22/20 Range/Units 21:58 23:08 02:29 Sodium 113 L* (137-145) mmol/L Chloride 78 L (98-107) mmol/L BUN 41 H (9-20) mg/dL Creatinine 2.36 H (0.66-1.25) mg/dL Glucose 118 H (74-99) mg/dL Osmolality 253 L (280-301) mosm/kg Uric Acid 8.8 H (3.5-8.5) mg/dL Calcium 8.2 L (8.4-10.2) mg/dL Phosphorus 2.3 L (2.5-4.5) mg/dL AST 71 H (17-59) U/L Alkaline Phosphatase 163 H (38-126) U/L Urine Protein 1+ H (Negative) Urine Blood Small H (Negative) 02/22/20 02/22/20 02/22/20 Range/Units 02:49 10:45 13:48 Sodium 115 L* 118 L* 119 L* (137-145) mmol/L Chloride 81 L (98-107) mmol/L BUN 41 H (9-20) mg/dL Creatinine 2.24 H (0.66-1.25) mg/dL Glucose 101 H (74-99) mg/dL Osmolality (280-301) mosm/kg Uric Acid (3.5-8.5) mg/dL Calcium 8.0 L (8.4-10.2) mg/dL Phosphorus (2.5-4.5) mg/dL AST 66 H (17-59) U/L Alkaline Phosphatase 154 H (38-126) U/L Urine Protein (Negative) Urine Blood (Negative) Thrombosis Risk Factor Assmnt - Choose All That Apply Any of the Below Risk Factors Present?: Yes Each Factor Represents 1 point: Obesity (BMI >25), Swollen legs (current) Other Risk Factors: Yes Each Risk Factor Represents 2 Points: Age 61-74 years Other congenital or acquired thrombophilia - If yes, enter type in comment: No Thrombosis Risk Factor Assessment Total Risk Factor Score: 4 Thrombosis Risk Factor Assessment Level: Moderate Risk Assessment and Plan (1) Acute kidney injury Current Visit: Yes Status: Acute Code(s): N17.9 - ACUTE KIDNEY FAILURE, UNSPECIFIED SNOMED Code(s): 72830620 (2) Hyponatremia Current Visit: Yes Status: Acute Code(s): E87.1 - HYPO-OSMOLALITY AND HYPONATREMIA SNOMED Code(s): 87804378 (3) Weakness Current Visit: Yes Status: Acute Code(s): R53.1 - WEAKNESS SNOMED Code(s): 42133068 (4) Anemia of chronic disease Current Visit: No Status: Acute Code(s): D63.8 - ANEMIA IN OTHER CHRONIC DISEASES CLASSIFIED ELSEWHERE SNOMED Code(s): 954031460 (5) CKD (chronic kidney disease) stage 3, GFR 30-59 ml/min Current Visit: No Status: Acute Code(s): N18.3 - CHRONIC KIDNEY DISEASE, STAGE 3 (MODERATE) * DO NOT USE * SNOMED Code(s): 397849900 (6) Alcoholism Current Visit: Yes Status: Acute Code(s): F10.20 - ALCOHOL DEPENDENCE, UNCOMPLICATED SNOMED Code(s): 4262473 (7) Insomnia Current Visit: Yes Status: Acute Code(s): G47.00 - INSOMNIA, UNSPECIFIED SNOMED Code(s): 578020163 Plan: 1. Acute kidney injury and hypovolemic hyponatremia. Secondary to dehydration. Nephrology consult. Start gentle IV fluid hydration. Follow sodium 2. Alcoholism and alcohol withdrawal. CIWA protocol. Start protonix 3. Insomnia. Start trazodone
[2020-02-22] MEDS: traZODone HCL 50 MG TAB PO SCH (23:53)
[2020-02-23] MEDS: SODIUM CHLORIDE 0.9% 1,000 ML IV SCH ×2 (00:16→08:49)
[2020-02-23] MEDS ORDERED: NICOTINE 7MG/24HR PATCH TRANSDERM STA (00:21)
[2020-02-23] MEDS ORDERED: NICOTINE 14MG/24HR PATCH TRANSDERM STA (00:51)
[2020-02-23] MEDS: THIAMINE 100 MG TAB PO SCH ×2 (08:54→16:31)
[2020-02-23] MEDS: PANTOPRAZOLE 40 MG TABLET PO SCH (08:54)
[2020-02-23 11:48] LABS: Calcium 7.8 mg/dL (8.4-10.2); Potassium 3.9 mmol/L (3.5-5.1); Total Bilirubin 0.6 mg/dL (0.2-1.3); Total Protein 5.4 g/dL (6.3-8.2)
--- NOTE | 2020-02-23 11:53 | P.PN ---
Subjective Patient is seen in follow-up for hyponatremia. Sodium level was 113 on admission and was up to 119 as of yesterday 1:48 PM. No labs available since then. His oral intake is starting to improve. No vomiting or diarrhea. He is maintained on normal saline at 50 mL an hour. Urine output is good. Blood pressure stable. Vital signs are stable. General: The patient appeared well nourished and normally developed. HEENT: Head exam is unremarkable. Neck is without jugular venous distension. LUNGS: Breath sounds decreased. HEART: Rate and Rhythm are regular. ABDOMEN: Soft, nontender. EXTREMITITES: No clubbing, cyanosis, or edema. Objective - Vital Signs Vital signs: Vital Signs Temp 97.7 F 02/23/20 11:25 Pulse 70 02/23/20 11:25 Resp 20 02/23/20 11:25 BP 121/82 02/23/20 11:25 Pulse Ox 100 02/23/20 11:25 Intake & Output 02/22/20 02/23/20 02/23/20 18:59 06:59 18:59 Intake Total 3360 240 Output Total 600 Balance 2760 240 Weight 108.862 kg Intake: Intake, IV Titration 2560 Amount Sodium Chloride 0.9% 1, 2560 000 ml @ 130 mls/hr IV . Q7H42M [facility] Rx#:[id number] Oral 800 240 Output: Urine 600 Other: # Voids 4 - Labs CBC & Chem 7: 02/21/20 21:58 02/22/20 13:48 Labs: Abnormal Lab Results - Last 24 Hours (Table) 02/22/20 02/22/20 Range/Units 10:45 13:48 Sodium 118 L* 119 L* (137-145) mmol/L Microbiology - Last 24 Hours (Table) 02/21/20 21:58 Blood Culture - Preliminary Blood No Growth after 24 hours Assessment and Plan Plan: Assessment: 1. Hypovolemic hyponatremia improving with IV hydration. Component of poor solute intake. Sodium level 126 from this morning 11 AM. Urine osmolality 199 and urine sodium 23. 2. Acute kidney injury mostly prerenal secondary to hypovolemia. Creatinine was 2.36 on admission and is down to 2.04 today. 3. Chronic kidney disease stage III with baseline creatinine near 1.8. Etiology is most likely nephrosclerosis. 1+ proteinuria noted on UA. This will be further worked up outpatient. 4. History of alcohol abuse. 5. Hypophosphatemia from poor intake. Plan: Maintain normal saline at 50 mL an hour. Encouraged oral intake, particularly protein. Repeat phosphorus level today. Avoid nephrotoxins. Patient will need to follow up outpatient within 1-2 weeks post discharge.
[2020-02-23 13:04] LABS: Magnesium 1.8 mg/dL (1.6-2.3); Phosphorus 1.7 mg/dL (2.5-4.5)
[2020-02-23] MEDS ORDERED: Phosphorus Replacement Protoco 1 EACH MISC MISCELLANE PRN (19:32)
--- NOTE | 2020-02-23 19:37 | P.PN ---
Subjective Progress Note Date: 02/23/20 Principal diagnosis: hyponatremia and LORET[place] His sodium and creatinine are improved today, pt is feeling better. He is not requiring ativan per CIWA protocol. Heartburn resolved with protonix. He is still feeling weak. Objective - Vital Signs Vital signs: Vital Signs Temp 97.8 F 02/23/20 16:10 Pulse 79 02/23/20 16:10 Resp 18 02/23/20 16:10 BP 132/78 02/23/20 16:10 Pulse Ox 97 02/23/20 16:10 Intake & Output 02/23/20 02/23/20 02/24/20 06:59 18:59 06:59 Intake Total 1240 Balance 1240 Weight 123.4 kg Intake: IV 400 Sodium Chloride 0.9% 1, 400 000 ml @ 50 mls/hr IV . Q20H [facility] Rx#:[id number] Oral 840 Other: # Voids 3 - Exam General: well nourished, well developed, NAD. Vitals reviewed Lungs: normal respiratory effort, no wheezes or rales CV: Regular rate and rhythm, no murmur. Peripheral pulses 2+ Abdomen: soft, nondistended, no organomegaly Skin: warm and dry. - Labs CBC & Chem 7: 02/21/20 21:58 02/23/20 11:09 Labs: Abnormal Lab Results - Last 24 Hours (Table) 02/23/20 02/23/20 Range/Units 11:09 11:09 Sodium 126 L (137-145) mmol/L Chloride 96 L (98-107) mmol/L BUN 34 H (9-20) mg/dL Creatinine 2.04 H (0.66-1.25) mg/dL Glucose 102 H (74-99) mg/dL Calcium 7.8 L (8.4-10.2) mg/dL Phosphorus 1.7 L (2.5-4.5) mg/dL AST 140 H (17-59) U/L ALT 70 H (4-49) U/L Alkaline Phosphatase 129 H (38-126) U/L Total Protein 5.4 L (6.3-8.2) g/dL Albumin 3.0 L (3.5-5.0) g/dL Microbiology - Last 24 Hours (Table) 02/21/20 21:58 Blood Culture - Preliminary Blood No Growth after 24 hours Assessment and Plan (1) Acute kidney injury Current Visit: Yes Status: Acute Code(s): N17.9 - ACUTE KIDNEY FAILURE, UNSPECIFIED SNOMED Code(s): 09255613 (2) Hyponatremia Current Visit: Yes Status: Acute Code(s): E87.1 - HYPO-OSMOLALITY AND HYPONATREMIA SNOMED Code(s): 00421351 (3) Weakness Current Visit: Yes Status: Acute Code(s): R53.1 - WEAKNESS SNOMED Code(s): 10288930 (4) Anemia of chronic disease Current Visit: No Status: Acute Code(s): D63.8 - ANEMIA IN OTHER CHRONIC DISEASES CLASSIFIED ELSEWHERE SNOMED Code(s): 158875736 (5) CKD (chronic kidney disease) stage 3, GFR 30-59 ml/min Current Visit: No Status: Acute Code(s): N18.3 - CHRONIC KIDNEY DISEASE, STAGE 3 (MODERATE) * DO NOT USE * SNOMED Code(s): 707212776 (6) Alcoholism Current Visit: Yes Status: Acute Code(s): F10.20 - ALCOHOL DEPENDENCE, UNCOMPLICATED SNOMED Code(s): 2784246 (7) Insomnia Current Visit: Yes Status: Acute Code(s): G47.00 - INSOMNIA, UNSPECIFIED SNOMED Code(s): 164883309 Plan: 1. Acute kidney injury and hypovolemic hyponatremia. Nephrology following. Continue gentle IV fluid hydration. Monitor labs 2. Alcoholism and alcohol withdrawal. CIWA protocol. Continue with protonix 3. Insomnia. Continue trazodone
[2020-02-23] MEDS: traZODone HCL 50 MG TAB PO SCH ×2 (22:06→22:10)
[2020-02-24] MEDS: PANTOPRAZOLE 40 MG TABLET PO SCH (06:31)
[2020-02-24] MEDS: THIAMINE 100 MG TAB PO SCH ×2 (06:31→16:26)
[2020-02-24 07:51] LABS: Magnesium 1.9 mg/dL (1.6-2.3); Phosphorus 1.8 mg/dL (2.5-4.5); Potassium 4.2 mmol/L (3.5-5.1)
[2020-02-24] MEDS: SODIUM CHLORIDE 0.9% 1,000 ML IV SCH (10:11)
--- NOTE | 2020-02-24 11:45 | P.PN ---
Subjective Progress Note Date: 02/24/20 This is a 64-year-old gentleman admitted with multiple medical issues including generalized weakness, hyponatremia, alcohol withdrawal. Reports rough night, but feeling better this morning. Sodium improving up to 131 on IV fluid hydration. Creatinine 2.2. Continues on CIWA protocol. Denies abdominal pain, shakes or sweats. Denies chest pain, palpitations or increasing shortness of breath. Objective - Vital Signs Vital signs: Vital Signs Temp 97.5 F L 02/24/20 08:00 Pulse 79 02/24/20 08:00 Resp 20 02/24/20 08:00 BP 124/59 02/24/20 08:00 Pulse Ox 95 02/24/20 08:00 Intake & Output 02/23/20 02/24/20 02/24/20 18:59 06:59 18:59 Intake Total 1240 380 120 Balance 1240 380 120 Weight 123.4 kg 122.9 kg Intake: IV 400 Sodium Chloride 0.9% 1, 400 000 ml @ 50 mls/hr IV . Q20H [facility] Rx#:[id number] Oral 840 380 120 Other: Voiding Method Toilet # Voids 3 1 - Exam General: Lying in bed, NAD. Vitals reviewed Lungs: normal respiratory effort, no wheezes or rales CV: Regular rate and rhythm, no murmur. Peripheral pulses 2+ Abdomen: soft, nondistended, nontender, no organomegaly, positive bowel sounds. Skin: warm and dry. - Labs CBC & Chem 7: 02/21/20 21:58 02/24/20 07:13 Labs: Abnormal Lab Results - Last 24 Hours (Table) 02/23/20 02/23/20 02/24/20 Range/Units 11:09 11: 07:13 Sodium 126 L 132 L (137-145) mmol/L Chloride 96 L (98-107) mmol/L BUN 34 H 32 H (9-20) mg/dL Creatinine 2.04 H 2.20 H (0.66-1.25) mg/dL Glucose 102 H 111 H (74-99) mg/dL Calcium 7.8 L 8.0 L (8.4-10.2) mg/dL Phosphorus 1.7 L 1.8 L (2.5-4.5) mg/dL AST 140 H (17-59) U/L ALT 70 H (4-49) U/L Alkaline Phosphatase 129 H (38-126) U/L Total Protein 5.4 L (6.3-8.2) g/dL Albumin 3.0 L (3.5-5.0) g/dL Microbiology - Last 24 Hours (Table) 02/21/20 21:58 Blood Culture - Preliminary Blood No Growth after 48 hours Assessment and Plan Assessment: Acute renal failure, prerenal secondary to hypovolemia Hypovolemic hyponatremia, improving with IV fluid hydration Alcohol abuse Insomnia Chronic kidney disease, stage III Anemia of chronic disease Plan: Continue on current medication regime ,monitoring and symptomatic treatment. Maintain IV fluid hydration, PPI, CIWA protocol. Close monitoring o f renal function, sodium with repeat labs ordered for a.m. Potential discharge in a.m. The impression and plan of care has been dictated as directed. : I performed a history and examination of this patient, discussed the same with the dictator. I agree with the dictator's note ,documented as a scribe. Any additional findings or plans will be noted.
--- NOTE | 2020-02-24 12:20 | P.PN ---
Subjective Patient is seen in follow-up for hyponatremia. Sodium level was 113 on admission and up to 132 today. His oral intake is starting to improve. No v omiting or diarrhea. He is maintained on normal saline at 50 mL an hour. Urine output is good. Blood pressure stable. No active complaints. Vital signs are stable. General: The patient appeared well nourished and normally developed. HEENT: Head exam is unremarkable. Neck is without jugular venous distension. LUNGS: Breath sounds decreased. HEART: Rate and Rhythm are regular. ABDOMEN: Soft, nontender. EXTREMITITES: No clubbing, cyanosis, or edema. Objective - Vital Signs Vital signs: Vital Signs Temp 97.5 F L 02/24/20 08:00 Pulse 79 02/24/20 08:00 Resp 20 02/24/20 08:00 BP 124/59 02/24/20 08:00 Pulse Ox 95 02/24/20 08:00 Intake & Output 02/23/20 02/24/20 02/24/20 18:59 06:59 18:59 Intake Total 1240 380 120 Balance 1240 380 120 Weight 123.4 kg 122.9 kg Intake: IV 400 Sodium Chloride 0.9% 1, 400 000 ml @ 50 mls/hr IV . Q20H [facility] Rx#:[id number] Oral 840 380 120 Other: Voiding Method Toilet # Voids 3 1 - Labs CBC & Chem 7: 02/21/20 21:58 02/24/20 07:13 Labs: Abnormal Lab Results - Last 24 Hours (Table) 02/23/20 02/24/20 Range/Units 11:09 07:13 Sodium 132 L (137-145) mmol/L BUN 32 H (9-20) mg/dL Creatinine 2.20 H (0.66-1.25) mg/dL Glucose 111 H (74-99) mg/dL Calcium 8.0 L (8.4-10.2) mg/dL Phosphorus 1.7 L 1.8 L (2.5-4.5) mg/dL Microbiology - Last 24 Hours (Table) 02/21/20 21:58 Blood Culture - Preliminary Blood No Growth after 48 hours Assessment and Plan Plan: Assessment: 1. Hypovolemic hyponatremia improving with IV hydration. Component of poor solute intake. Sodium level 132. Urine osmolality 199 and urine sodium 23. TSH and cortisol normal. 2. Acute kidney injury mostly prerenal secondary to hypovolemia. Creatinine was 2.36 on admission and is 2.2 today. 3. Chronic kidney disease stage III with baseline creatinine near 1.8. Etiology is most likely nephrosclerosis. 1+ proteinuria noted on UA. This will be further worked up outpatient. 4. History of alcohol abuse. 5. Hypophosphatemia from poor intake. Plan: Hep-Lock IV fluids. 1500 mL fluid restriction. Encouraged oral intake, particularly protein. Replace phosphorus. Avoid nephrotoxins. Patient will need to follow up outpatient within 1-2 weeks post discharge.
[2020-02-24] MEDS: SODIUM PHOSPHATE 10 MMOL in SODIUM CHLORIDE 0.9% 250 ML IVPB SCH ×2 (14:08→16:26)
[2020-02-24 14:44] VITALS: BMI 35.7
[2020-02-24] MEDS: traZODone HCL 50 MG TAB PO SCH (20:21)
[2020-02-25] MEDS: THIAMINE 100 MG TAB PO SCH ×2 (06:36→17:01)
[2020-02-25] MEDS: PANTOPRAZOLE 40 MG TABLET PO SCH (06:36)
[2020-02-25 07:26] LABS: Calcium 7.6 mg/dL (8.4-10.2); Magnesium 1.6 mg/dL (1.6-2.3); Phosphorus 2.5 mg/dL (2.5-4.5)
[2020-02-25 07:32] LABS: Basophils % (A) 0 %; Eosinophils # (A) 0.2 k/uL (0-0.7); Eosinophils % (A) 3 %; HCT 31.1 % (39.0-53.0); Lymphocytes # (A) 0.8 k/uL (1.0-4.8); Lymphocytes % (A) 14 %; MCH 32.6 pg (25.0-35.0); MCHC 31.5 g/dL (31.0-37.0); Macrocytosis Slight; Mean Platelet Volume 7.1; Monocytes # (A) 0.5 k/uL (0-1.0); Monocytes % (A) 8 %; Neutrophils # (A) 4.2 k/uL (1.3-7.7); Neutrophils % (A) 72 %; Platelet Count 241 k/uL (150-450); RBC 2.99 m/uL (4.30-5.90); RDW 14.9 % (11.5-15.5); WBC 5.8 k/uL (3.8-10.6)
[2020-02-25 07:50] LABS: HGB 9.8 gm/dL (13.0-17.5); MCV 103.8 fL (80.0-100.0)
--- NOTE | 2020-02-25 13:02 | PN ---
PROGRESS NOTE Patient is seen for followup for hyponatremia. He is currently sleeping. Patient is arousable. He was maintained on normal saline which is now discontinued. His sodium level is up to 133 today. PHYSICAL EXAMINATION: Blood pressure is 152/86, heart rate 88 per minute, patient is afebrile. Examination shows patient is euvolemic with no evidence of edema bilateral lower extremities. Abdomen is soft, obese, nontender. LABS: Show sodium 133, potassium 4.0, chloride 106, CO2 is 21, BUN 37, creatinine 2.13. ASSESSMENT: 1. Chronic kidney disease, stage 3. Baseline creatinine about 1.9, mostly nephrosclerosis. 2. Acute kidney injury, mostly prerenal, currently improved status post IV hydration. Serum creatinine staying at about 2.1. 3. Hypovolemic hyponatremia, improved with normal saline. TSH and cortisol levels were within normal, sodium 134 today next. 4. History of EtOH abuse. 5. Hypophosphatemia from poor oral intake status post replacement. PLAN: Patient can be discharged with plans to follow up with labs as outpatient in 2-3 days and we will see him in the office in about 1-2 weeks time. MMODL / IJN: [id number] /
--- NOTE | 2020-02-25 15:58 | P.DS ---
Providers Date of admission: 02/21/20 23:23 Expected date of discharge: 02/25/20 Attending physician: Flakito Guajardo MD Consults: 02/21/20 23:38 Consult Physician Routine Consulting Provider: Quoc Abbasi Consult Reason/Comments: hyponatremia Do you want consulting provider notified?: Yes Primary care physician: Flakito Guajardo MD Hospital Course: Mr. Fadi Kovacs is a 64-year-old male with a past medical history of alcoholism who presented to the ED for multiple falls at home and generalized weakness. Patient has been drinking a pint of hard liquor every night to help him sleep and has not been eating or drinking very well. On presentation patient was hypertensive and his labs showed significant low sodium at 113 and chloride of 38 and creatinine of 2.36. Patient was treated for a hypovolemic hyponatremia with IV fluids. And his sodium levels increased steadily. Hand is acute kidney injury, creatinine trended down and slowly back to his baseline. Patient has history of CKD. The patient is comfortably sitting in bed, appears to be no acute distress. He requests that he wants to go home. On reviewing the labs, patient's sodium is at 133, chloride 106, bicarbonate 21, BN 37, creatinine 2.1. Patient is being discharged home in a stable condition. Patient is counseled on quitting alcohol. Advised to continue taking thiamine and B12 supplements. DISCHARGE DIAGNOSIS 1. Hypovolemic hyponatremia improved 2. Acute kidney injury mostly prerenal secondary to hypovolemia - resolving 3. Chronic kidney disease stage III with baseline creatinine near 1.8. 4. History of alcohol abuse. 5. Hypophosphatemia from poor intake. 6. Anemia of chronic disease Follow-up: Patient is advised to follow up with his PCP in 3-4 days, nephrology in 2 weeks. Patient Condition at Discharge: Fair Plan - Discharge Summary Discharge Rx Participant: No New Discharge Prescriptions: New Thiamine [Vitamin B-1] 100 mg PO DAILY 30 Days #30 tablet Continue Lansoprazole [Prevacid] 15 mg PO DAILY Vitamin B (Unknown Which) 1 tab PO DAILY Discharge Medication List Lansoprazole [Prevacid] 15 mg PO DAILY 02/21/20 [History] Vitamin B (Unknown Which) 1 tab PO DAILY 02/21/20 [History] Thiamine [Vitamin B-1] 100 mg PO DAILY 30 Days #30 tablet 02/25/20 [Rx] Follow up Appointment(s)/Referral(s): Pinky Narayanan MD [STAFF PHYSICIAN] - 2 Weeks Flakito Guajardo MD [Primary Care Provider] - 1 Week Patient Instructions/Handouts: Acute Kidney Injury (DC), Alcohol Withdrawal (DC), Weakness (DC) Discharge Disposition: HOME SELF-CARE
[2020-02-25 16:36] VITALS: BP 145/74; PULSE 87; RESP 17; TEMP 98.5
== END 2020-02-25 17:24 | disposition home or self-care (01) | DRG 641 ==
LOC: EC 21:20 → 3SCARD 23:23
PROVIDERS: ADMIT Family Medicine; ATTEND Family Medicine
DX: E87.1 Hypo-osmolality and hyponatremia (principal); F10.239 Alcohol dependence with withdrawal, unspecified; N17.9 Acute kidney failure, unspecified; D63.1 Anemia in chronic kidney disease; E83.39 Other disorders of phosphorus metabolism; E11.22 Type 2 diabetes mellitus with diabetic chronic kidney disease; E11.42 Type 2 diabetes mellitus with diabetic polyneuropathy; N18.32 Chronic kidney disease, stage 3b; E86.0 Dehydration; E86.1 Hypovolemia; F17.200 Nicotine dependence, unspecified, uncomplicated; G47.00 Insomnia, unspecified; R29.6 Repeated falls; F32.9 Major depressive disorder, single episode, unspecified; K21.9 Gastro-esophageal reflux disease without esophagitis; R12 Heartburn; Z96.1 Presence of intraocular lens; Z98.42 Cataract extraction status, left eye; Z98.41 Cataract extraction status, right eye; Z98.890 Other specified postprocedural states; Z90.49 Acquired absence of other specified parts of digestive tract; Z87.19 Personal history of other diseases of the digestive system; Z89.022 Acquired absence of left finger(s); Z87.39 Personal history of other diseases of the musculoskeletal system and connective tissue; Z82.49 Family history of ischemic heart disease and other diseases of the circulatory system; Z84.89 Family history of other specified conditions; Z80.9 Family history of malignant neoplasm, unspecified; W19.XXXA Unspecified fall, initial encounter; Y92.009 Unspecified place in unspecified non-institutional (private) residence as the place of occurrence of the external cause; Z23 Encounter for immunization
CPT/HCPCS: 36415; 70450; 71046; 80048; 80053; 81001; 82310; 82533; 83605; 83735; 83880; 83930; 83935; 84100; 84133; 84295; 84300; 84443; 84484; 84540; 84550; 84560; 85025; 85610; 85730; 87040; 90686; 93005; 96360; 96361; 96372; 99285

== ENCOUNTER 2021-11-23 12:09 | Inpatient (IN) | payer MEDICARE, OTHER ==
--- NOTE | 2021-11-23 12:46 | ED ---
General Adult HPI - General Chief complaint: Shortness of Breath Stated complaint: Generalized weakness Time Seen by Provider: 11/23/21 12:15 Source: patient, RN notes reviewed, old records reviewed Mode of arrival: EMS - History of Present Illness Initial comments: This is a 66-year-old male who presents to the emergency department complaining of swelling in his legs and shortness of breath with any exertion. Patient denies any pain. Patient denies chest pain. Patient denies any palpitations per patient denies any recent fever chills or cough. Patient states she's had this happen to this degree once before couple years ago and he is not sure why it occurred. Patient states he is a daily drinker. Patient also states he has kidney problems. Patient denies any lightheadedness or dizziness. Patient denies any difficulty breathing shortness of breath. Patient denies any cough. Patient denies abdominal pain patient denies nausea vomiting diarrhea. - Related Data Home Medications Medication Instructions Recorded Confirmed Amitriptyline HCl [Elavil] 50 mg PO HS 11/23/21 11/23/21 Furosemide [Lasix] 40 mg PO BID 11/23/21 11/23/21 Vitamin A 2,400 mcg PO DAILY 11/23/21 11/23/21 Vitamin B Complex 1 cap PO DAILY 11/23/21 11/23/21 Allergies Allergy/AdvReac Type Severity Reaction Status Date / Time No Known Allergies Allergy Verified 11/23/21 14:02 Review of Systems ROS Statement: Those systems with pertinent positive or pertinent negative responses have been documented in the HPI. ROS Other: All systems not noted in ROS Statement are negative. Past Medical History Past Medical History: Diabetes Mellitus, GERD/Reflux, Renal Disease Additional Past Medical History / Comment(s): ETOH abuse, hyponatremia, NIDDM type II-lost weight and no longer on any diabetic meds, bilateral feet neuropathy, CKD stage III, chronic anemia, past wound R foot/os teomylitis/cellulitis, constipation alternating with diarrhea. History of Any Multi-Drug Resistant Organisms: None Reported Past Surgical History: Cholecystectomy, Orthopedic Surgery Additional Past Surgical History / Comment(s): L index finger traumatic finger amp/rest of L hand fingers were reattached, colonoscopy, bilateral cataract removals/lens implants then film removed bilateral eyes. Past Anesthesia/Blood Transfusion Reactions: No Reported Reaction, Motion Sickness Additional Past Anesthesia/Blood Transfusion Reaction / Comment(s): unknown family hx Past Psychological History: Depression Smoking Status: Current every day smoker Past Alcohol Use History: Abuse, Heavy Past Drug Use History: None Reported - Past Family History Mother Family Medical History: No Reported History Additional Family Medical History / Comment(s): Mother left when pt was 2 yrs old. Father Family Medical History: Blood Disorder, Cancer Additional Family Medical History / Comment(s): Clotting disorder-"bleeder". Father had 5 different types of cancers. Brother(s) Family Medical History: Deep Vein Thrombosis (DVT) General Exam - General Exam Comments Initial Comments: GENERAL: Patient is well-developed and well-nourished. Patient is nontoxic and well- hydrated and is in mild distress. ENT: Neck is soft and supple. No significant lymphadenopathy is noted. Oropharynx is clear. Moist mucous membranes. Neck has full range of motion without eliciting any pain. EYES: The sclera were anicteric and conjunctiva were pink and moist. Extraocular movements were intact and pupils were equal round and reactive to light. Eyelids were unremarkable. PULMONARY: Unlabored respirations. Good breath sounds bilaterally. No audible rales rh onchi or wheezing was noted. CARDIOVASCULAR: There is a regular rate and rhythm without any murmurs gallops or rubs. ABDOMEN: Soft and nontender with normal bowel sounds. SKIN: Skin is clear with no lesions or rashes and otherwise unremarkable. NEUROLOGIC: Patient is alert and oriented x3. Cranial nerves II through XII are grossly intact. Motor and sensory are also intact. Normal speech, volume and content. Symmetrical smile. MUSCULOSKELETAL: Normal extremities with adequate strength and full range of motion. 2+ bilaterally with chronic cellulitis LYMPHATICS: No significant lymphadenopathy is noted PSYCHIATRIC: Normal psychiatric evaluation. Course Vital Signs 11/23/21 11/23/21 12:18 12:34 Temperature 98 F Pulse Rate 101 H 100 Respiratory 20 24 Rate Blood Pressure 152/76 158/86 O2 Sat by Pulse 95 95 Oximetry Medical Decision Making - Medical Decision Making Patient's EKG shows sinus rhythm at 97 bpm NV interval 176 QRS is 126 QT interval 353 QTC is 408. Patient's EKG shows no acute ST segment elevation or depression. Chest x-ray shows pulmonary edema. I gave the patient some magnesium because his magnesium was low analysis started the patient on Lasix and placed some Nitropaste on his chest. [facility] [place] admitted the patient I consult cardiology - Lab Data Result diagrams: 11/23/21 12:34 11/23/21 12:34 Lab Results 11/23/21 11/23/21 11/23/21 Range/Units 12:34 12:34 12:34 WBC 7.7 (3.8-10.6) k/uL RBC 2.89 L (4.30-5.90) m/uL Hgb 9.5 L (13.0-17.5) gm/dL Hct 29.0 L (39.0-53.0) % MCV 100.3 H (80.0-100.0) fL MCH 32.9 (25.0-35.0) pg MCHC 32.8 (31.0-37.0) g/dL RDW 16.6 H (11.5-15.5) % Plt Count 283 (150-450) k/uL MPV 7.6 Neutrophils % 81 % Lymphocytes % 9 % Monocytes % 5 % Eosinophils % 4 % Basophils % 0 % Neutrophils # 6.3 (1.3-7.7) k/uL Lymphocytes # 0.7 L (1.0-4.8) k/uL Monocytes # 0.4 (0-1.0) k/uL Eosinophils # 0.3 (0-0.7) k/uL Basophils # 0.0 (0-0.2) k/uL Hypochromasia Slight Anisocytosis Slight Macrocytosis Slight PT 10.7 (9.0-12.0) sec INR 1.0 (<1.2) APTT 27.1 (22.0-30.0) sec Sodium 125 L (137-145) mmol/L Potassium 4.4 (3.5-5.1) mmol/L Chloride 98 (98-107) mmol/L Carbon Dioxide 19 L (22-30) mmol/L Anion Gap 8 mmol/L BUN 31 H (9-20) mg/dL Creatinine 2.86 H (0.66-1.25) mg/dL Est GFR (CKD-EPI)AfAm 25 (>60 ml/min/1.73 sqM) Est GFR (CKD-EPI)NonAf 22 (>60 ml/min/1.73 sqM) Glucose 106 H (74-99) mg/dL Plasma Lactic Acid Tod (0.7-2.0) mmol/L Calcium 8.4 (8.4-10.2) mg/dL Magnesium 1.5 L (1.6-2.3) mg/dL Total Bilirubin 0.5 (0.2-1.3) mg/dL AST 21 (17-59) U/L ALT 12 (4-49) U/L Alkaline Phosphatase 180 H (38-126) U/L Troponin I (0.000-0.034) ng/mL NT-Pro-B Natriuret Pep pg/mL Total Protein 6.5 (6.3-8.2) g/dL Albumin 3.8 (3.5-5.0) g/dL Serum Alcohol mg/dL 11/23/21 11/23/21 11/23/21 Range/Units 12:34 12:34 12:34 WBC (3.8-10.6) k/uL RBC (4.30-5.90) m/uL Hgb (13.0-17.5) gm/dL Hct (39.0-53.0) % MCV (80.0-100.0) fL MCH (25.0-35.0) pg MCHC (31.0-37.0) g/dL RDW (11.5-15.5) % Plt Count (150-450) k/uL MPV Neutrophils % % Lymphocytes % % Monocytes % % Eosinophils % % Basophils % % Neutrophils # (1.3-7.7) k/uL Lymphocytes # (1.0-4.8) k/uL Monocytes # (0-1.0) k/uL Eosinophils # (0-0.7) k/uL Basophils # (0-0.2) k/uL Hypochromasia Anisocytosis Macrocytosis PT (9.0-12.0) sec INR (<1.2) APTT (22.0-30.0) sec Sodium (137-145) mmol/L Potassium (3.5-5.1) mmol/L Chloride (98-107) mmol/L Carbon Dioxide (22-30) mmol/L Anion Gap mmol/L BUN (9-20) mg/dL Creatinine (0.66-1.25) mg/dL Est GFR (CKD-EPI)AfAm (>60 ml/min/1.73 sqM) Est GFR (CKD-EPI)NonAf (>60 ml/min/1.73 sqM) Glucose (74-99) mg/dL Plasma Lactic Acid Tod 0.9 (0.7-2.0) mmol/L Calcium (8.4-10.2) mg/dL Magnesium (1.6-2.3) mg/dL Total Bilirubin (0.2-1.3) mg/dL AST (17-59) U/L ALT (4-49) U/L Alkaline Phosphatase (38-126) U/L Troponin I 0.023 (0.000-0.034) ng/mL NT-Pro-B Natriuret Pep 3470 pg/mL Total Protein (6.3-8.2) g/dL Albumin (3.5-5.0) g/dL Serum Alcohol mg/dL 11/23/21 Range/Units 13:24 WBC (3.8-10.6) k/uL RBC (4.30-5.90) m/uL Hgb (13.0-17.5) gm/dL Hct (39.0-53.0) % MCV (80.0-100.0) fL MCH (25.0-35.0) pg MCHC (31.0-37.0) g/dL RDW (11.5-15.5) % Plt Count (150-450) k/uL MPV Neutrophils % % Lymphocytes % % Monocytes % % Eosinophils % % Basophils % % Neutrophils # (1.3-7.7) k/uL Lymphocytes # (1.0-4.8) k/uL Monocytes # (0-1.0) k/uL Eosinophils # (0-0.7) k/uL Basophils # (0-0.2) k/uL Hypochromasia Anisocytosis Macrocytosis PT (9.0-12.0) sec INR (<1.2) APTT (22.0-30.0) sec Sodium (137-145) mmol/L Potassium (3.5-5.1) mmol/L Chloride (98-107) mmol/L Carbon Dioxide (22-30) mmol/L Anion Gap mmol/L BUN (9-20) mg/dL Creatinine (0.66-1.25) mg/dL Est GFR (CKD-EPI)AfAm (>60 ml/min/1.73 sqM) Est GFR (CKD-EPI)NonAf (>60 ml/min/1.73 sqM) Glucose (74-99) mg/dL Plasma Lactic Acid Tod (0.7-2.0) mmol/L Calcium (8.4-10.2) mg/dL Magnesium (1.6-2.3) mg/dL Total Bilirubin (0.2-1.3) mg/dL AST (17-59) U/L ALT (4-49) U/L Alkaline Phosphatase (38-126) U/L Troponin I (0.000-0.034) ng/mL NT-Pro-B Natriuret Pep pg/mL Total Protein (6.3-8.2) g/dL Albumin (3.5-5.0) g/dL Serum Alcohol <10 mg/dL Disposition Clinical Impression: Acute pulmonary edema Disposition: ADMITTED IP TO THIS HOSP Is patient prescribed a controlled substance at d/c from ED?: No Referrals: Flakito Guajardo MD [Primary Care Provider] - 1-2 days Time of Disposition: 14:06
[2021-11-23 12:53] LABS: Anisocytosis Slight; Basophils % (A) 0 %; Eosinophils # (A) 0.3 k/uL (0-0.7); Eosinophils % (A) 4 %; HGB 9.5 gm/dL (13.0-17.5); Hypochromasia Slight; Lymphocytes # (A) 0.7 k/uL (1.0-4.8); Lymphocytes % (A) 9 %; MCH 32.9 pg (25.0-35.0); MCHC 32.8 g/dL (31.0-37.0); MCV 100.3 fL (80.0-100.0); Macrocytosis Slight; Mean Platelet Volume 7.6; Monocytes # (A) 0.4 k/uL (0-1.0); Monocytes % (A) 5 %; Neutrophils # (A) 6.3 k/uL (1.3-7.7); Neutrophils % (A) 81 %; Platelet Count 283 k/uL (150-450); RBC 2.89 m/uL (4.30-5.90); RDW 16.6 % (11.5-15.5); WBC 7.7 k/uL (3.8-10.6)
[2021-11-23 13:04] LABS: Albumin 3.8 g/dL (3.5-5.0); Calcium 8.4 mg/dL (8.4-10.2); Magnesium 1.5 mg/dL (1.6-2.3); Partial Thromboplastin Time 27.1 sec (22.0-30.0); Potassium 4.4 mmol/L (3.5-5.1); Prothrombin Time 10.7 sec (9.0-12.0); Total Bilirubin 0.5 mg/dL (0.2-1.3); Total Protein 6.5 g/dL (6.3-8.2)
--- NOTE | 2021-11-23 13:47 | XR ---
EXAMINATION TYPE: XR chest 2V DATE OF EXAM: 11/23/2021 1:12 PM COMPARISON: Chest radiographs from 02/21/2020 TECHNIQUE: XR chest 2V Frontal and lateral views of the chest. CLINICAL INDICATION:Male, 66 years old with history of difficulty breathing; FINDINGS: Lungs/Pleura: There is no evidence of pleural effusion, focal consolidation, or pneumothorax. Pulmonary vascularity: Pulmonary vascular congestion. Heart/mediastinum: Cardiomediastinal silhouette is prominent in size. Musculoskeletal: No acute osseous pathology. IMPRESSION: Cardiomegaly and mild pulmonary vascular congestion. Correlate with BNP for congestive heart failure.
[2021-11-23] MEDS ORDERED: MAGNESIUM SULFATE-D5W PMX 1 GM in DEXTROSE/WATER 1 100ML.BAG IVPB ONE (13:59)
[2021-11-23] MEDS ORDERED: FUROSEMIDE 10 MG/ML 4 ML VIAL IV STA (14:02)
[2021-11-23] MEDS ORDERED: NITROGLYCERIN OINT 1 INCH/GM PACKET TOPICAL STA (14:02)
[2021-11-23] MEDS ORDERED: chlordiazePOXIDE 25 MG CAP PO PRN ×4 (14:35)
[2021-11-23] MEDS: FUROSEMIDE 10 MG/ML 4 ML VIAL IV SCH ×2 (15:07→23:59)
[2021-11-24] MEDS: FUROSEMIDE 10 MG/ML 4 ML VIAL IV SCH ×3 (05:55→21:43)
--- NOTE | 2021-11-24 08:08 | P.PN ---
Subjective Progress Note Date: 11/24/21 Principal diagnosis: Shortness of breath and lower extremities edema The patient is a 66-year-old gentleman with a past medical history significant for obesity as well as hypertension and also chronic kidney disease. 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 He presented to the emergency room with 3 weeks history of progressive dyspnea associated with orthopnea and also associated with severe bilateral lower extremities edema and weight gain. The patient stated that he gained 80 pounds within the last 3 months. He stated that he never been told that he has congestive heart failure. Obviously he has been gaining the weight very slightly. No symptoms of chest pain or chest disco mfort. No dizziness or lightheadedness and no feeling of heart racing or fluttering. No presyncope or syncope. Clinically he was in failure and the patient was admitted to the hospital and started on IV Lasix. When he was seen this morning he stated that he is feeling somewhat better. On examination he continues to have bilateral rhonchi was diminished breathing sounds bilaterally and also bilateral lower extremities edema. Beside that he underwent a workup including chest x-ray showed pulmonary vascular congestions. His NT proBNP came in to be elevated at 4000. His hemoglobin has been stable. The creatinine is 2.87 which appeared to be his baseline. Troponin within normal limits. EKG showed sinus rhythm with no significant or ischemic ST or T-wave abnormalities. When he presented to the hospital he was hypertensive. He stated that he has been compliant with his medication. Objective - Vital Signs Vital signs: Vital Signs Temp 97.5 F L 11/24/21 03:41 Pulse 90 11/24/21 03:41 Resp 16 11/24/21 03:41 BP 124/72 11/24/21 03:41 Pulse Ox 93 L 11/24/21 03:41 FiO2 Intake & Output 11/23/21 11/24/21 11/24/21 18:59 06:59 18:59 Intake Total 2160 180 Balance 2160 180 Weight 154.221 kg 151.4 kg Intake: Oral 2160 180 Other: Voiding Method Toilet - Constitutional General appearance: Present: no acute distress - Respiratory Respiratory: bilateral: rales - Cardiovascular Rhythm: regular Heart sounds: normal: S1, S2 Abnormal Heart Sounds: Present: systolic murmur - Labs CBC & Chem 7: 11/23/21 12:34 11/23/21 12:34 Labs: Abnormal Lab Results - Last 24 Hours (Table) 11/23/21 11/23/21 Range/Units 12:34 12:34 RBC 2.89 L (4.30-5.90) m/uL Hgb 9.5 L (13.0-17.5) gm/dL Hct 29.0 L (39.0-53.0) % MCV 100.3 H (80.0-100.0) fL RDW 16.6 H (11.5-15.5) % Lymphocytes # 0.7 L (1.0-4.8) k/uL Sodium 125 L (137-145) mmol/L Carbon Dioxide 19 L (22-30) mmol/L BUN 31 H (9-20) mg/dL Creatinine 2.86 H (0.66-1.25) mg/dL Glucose 106 H (74-99) mg/dL Magnesium 1.5 L (1.6-2.3) mg/dL Alkaline Phosphatase 180 H (38-126) U/L Assessment and Plan Assessment: Assessment #1 heart failure, and known etiology, with evidence of right and left heart failure, new diagnosis the patient #2 hypertension not under good control #3 chronic kidney disease seems to be stable #4 morbid obesity #5 multiple comorbid conditions Plan #1 continue the current dose of Lasix IV #2 continue monitor the kidney function and electrolytes #3 obtain an echocardiogram was Doppler to assess the etiology of the heart kamilah amber #4 add small dose of JOSE inhibitor in the light of chronic kidney disease and also to help controlling the blood pressure #5 further recommendation and direction to follow the echocardiogram #6 follow-up with the patient
[2021-11-24] MEDS: LOSARTAN 25 MG TAB PO SCH (09:18)
[2021-11-24 09:51] LABS: Calcium 8.1 mg/dL (8.4-10.2); Potassium 4.2 mmol/L (3.5-5.1)
[2021-11-24 10:00] LABS: Anisocytosis Slight; Basophils % (A) 0 %; Eosinophils # (A) 0.2 k/uL (0-0.7); Eosinophils % (A) 2 %; HCT 27.6 % (39.0-53.0); Hypochromasia Slight; Lymphocytes # (A) 0.6 k/uL (1.0-4.8); Lymphocytes % (A) 8 %; MCH 32.3 pg (25.0-35.0); MCHC 32.5 g/dL (31.0-37.0); MCV 99.4 fL (80.0-100.0); Macrocytosis Slight; Mean Platelet Volume 8.4; Monocytes # (A) 0.5 k/uL (0-1.0); Monocytes % (A) 6 %; Neutrophils % (A) 84 %; Platelet Count 275 k/uL (150-450); RBC 2.78 m/uL (4.30-5.90); RDW 16.1 % (11.5-15.5); WBC 8.4 k/uL (3.8-10.6)
--- NOTE | 2021-11-24 11:07 | P.HPIM ---
History of Present Illness H&P Date: 11/23/21 Chief Complaint: Shortness of Breath/Generalized weakness 66-year-old male who presents to the emergency department complaining of swelling in his legs and shortness of breath with any exertion. Patient denies any pain. Patient denies chest pain. Patient denies any palpitations per patient denies any recent fever chills or cough. Patient states she's had this happen to this degree once before couple years ago and he is not sure why it occurred. Patient states he is a daily drinker. Patient also states he has kidney problems. Patient denies any lightheadedness or dizziness. Patient denies any difficulty breathing shortness of breath. Patient denies any cough. Patient denies abdominal pain patient denies nausea vomiting diarrhea. EKG shows sinus rhythm at 97 bpm UT interval 176 QRS is 126 QT interval 353 QTC is 408. Patient's EKG shows no acute ST segment elevation or depression. Chest x-ray shows pulmonary edema. Lab review reveals WBC of 7.7, hemoglobin of 9.5 and platelet count of 283, sodium 125, potassium 4.4, BUN/creatinine of 31/2.86 and blood glucose of 106, magnesium of 1.5; troponin I 0.023, BNP 3470 Review of Systems REVIEW OF SYSTEMS: CONSTITUTIONAL: No fever, no malaise, no fatigue. HEENT: No recent visual problems or hearing problems. Denied any sore throat. CARDIOVASCULAR: No chest pain, orthopnea, PND, no palpitations, no syncope. PULMONARY: No shortness of breath, no cough, no hemoptysis. GASTROINTESTINAL: No diarrhea, no nausea, no vomiting, no abdominal pain. NEUROLOGICAL: No headaches, no weakness, no numbness. HEMATOLOGICAL: Denies any bleeding or petechiae. GENITOURINARY: Denies any burning micturition, frequency, or urgency. MUSCULOSKELETAL/RHEUMATOLOGICAL: Denies any joint pain, swelling, or any muscle pain. ENDOCRINE: Denies any polyuria or polydipsia. The rest of the 14-point review of systems is negative. Past Medical History Past Medical History: Diabetes Mellitus, GERD/Reflux, Renal Disease Additional Past Medical History / Comment(s): ETOH abuse, hyponatremia, NIDDM type II-lost weight and no longer on any diabetic meds, bilateral feet neuropathy, CKD stage III, chronic anemia, past wound R foot/osteomylitis/cellulitis, constipation alternating with diarrhea. History of Any Multi-Drug Resistant Organisms: None Reported Past Surgical History: Cholecystectomy, Orthopedic Surgery Additional Past Surgical History / Comment(s): L index finger traumatic finger amp/rest of L hand fingers were reattached, colonoscopy, bilateral cataract removals/lens implants then film removed bilateral eyes. Past Anesthesia/Blood Transfusion Reactions: No Reported Reaction, Motion Sickness Additional Past Anesthesia/Blood Transfusion Reaction / Comment(s): unknown family hx Past Psychological History: Depression Smoking Status: Current every day smoker Past Alcohol Use History: Abuse, Heavy Past Drug Use History: None Reported - Past Family History Mother Family Medical History: No Reported History Additional Family Medical History / Comment(s): Mother left when pt was 2 yrs old. Father Family Medical History: Blood Disorder, Cancer Additional Family Medical History / Comment(s): Clotting disorder-"bleeder". Father had 5 different types of cancers. Brother(s) Family Medical History: Deep Vein Thrombosis (DVT) Medications and Allergies Home Medications Medication Instructions Recorded Confirmed Type Amitriptyline HCl [Elavil] 50 mg PO HS 11/23/21 11/23/21 History Furosemide [Lasix] 40 mg PO BID 11/23/21 11/23/21 History Vitamin A 2,400 mcg PO DAILY 11/23/21 11/23/21 History Vitamin B Complex 1 cap PO DAILY 11/23/21 11/23/21 History Allergies Allergy/AdvReac Type Severity Reaction Status Date / Time No Known Allergies Allergy Verified 11/23/21 14:02 Physical Exam Vitals: Vital Signs Temp Pulse Resp BP Pulse Ox 11/23/21 14:15 90 20 138/77 97 11/23/21 12:34 100 24 158/86 95 11/23/21 12:18 98 F 101 H 20 152/76 95 Intake and Output 11/22/21 11/23/21 11/23/21 22:59 06:59 14:59 Other: Weight 154.221 kg PHYSICAL EXAMINATION: GENERAL: The patient is alert and oriented x3, not in any acute distress. Well developed, well nourished. HEENT: Pupils are round and equally reacting to light. EOMI. No scleral icterus. No conjunctival pallor. Normocephalic, atraumatic. No pharyngeal erythema. No thyromegaly. CARDIOVASCULAR: S1 and S2 present. No murmurs, rubs, or gallops. PULMONARY: Chest is clear to auscultation, no wheezing or crackles. ABDOMEN: Soft, nontender, nondistended, normoactive bowel sounds. No palpable organomegaly. MUSCULOSKELETAL: No joint swelling or deformity. EXTREMITIES: No cyanosis, clubbing, or pedal edema. NEUROLOGICAL: Gross neurological examination did not reveal any focal deficits. SKIN: No rashes. Results CBC & Chem 7: 11/24/21 09:21 11/24/21 09:21 Labs: Abnormal Lab Results - Last 24 Hours (Table) 11/23/21 11/23/21 Range/Units 12:34 12:34 RBC 2.89 L (4.30-5.90) m/uL Hgb 9.5 L (13.0-17.5) gm/dL Hct 29.0 L (39.0-53.0) % MCV 100.3 H (80.0-100.0) fL RDW 16.6 H (11.5-15.5) % Lymphocytes # 0.7 L (1.0-4.8) k/uL Sodium 125 L (137-145) mmol/L Carbon Dioxide 19 L (22-30) mmol/L BUN 31 H (9-20) mg/dL Creatinine 2.86 H (0.66-1.25) mg/dL Glucose 106 H (74-99) mg/dL Magnesium 1.5 L (1.6-2.3) mg/dL Alkaline Phosphatase 180 H (38-126) U/L Assessment and Plan Assessment: 1. New onset CHF - Patient isn't placed on Lasix 40 mg IV every 12 hours; monitor strict CAROL's, daily weights, low salt and fluid restricted diet - 2-D echo is ordered and pending; cardiology on board; appreciate recommendations 2. Uncontrolled hypertension; cardiology recommending to add small dose of losartan 25 mg daily for blood pressure control and given chronic kidney disease; we will make further adjustments as needed 3. Acute on chronic kidney disease; unable to start on IV fluid hydration due to CHF exacerbation; we will avoid nephrotoxins and hypotension; monitor renal function and electrolytes; consult nephrology 4. Electrolyte imbalance; hypomagnesemia/hyponatremia; magnesium supplemented in ED; we will place patient on fluid restriction for hyponatremia 5. Chronic EtOH use; patient has been placed on CIWA protocol with Librium 6. History of diabetes mellitus; monitor Accu-Cheks every before meals and at bedtime with insulin sliding scale 7. Gastroesophageal reflux disease; Protonix 40 mg daily DVT prophylaxis; SCDs/subcu heparin CODE STATUS; DO NOT RESUSCITATE
[2021-11-24] MEDS: HEPARIN SODIUM,PORCINE/PF 5,000 UNIT/0.5 ML SYRINGE SQ SCH ×2 (17:08→23:28)
[2021-11-24] MEDS: AMITRIPTYLINE HCL 50 MG TAB PO SCH (21:43)
[2021-11-25] MEDS: FUROSEMIDE 10 MG/ML 4 ML VIAL IV SCH ×3 (05:28→21:39)
[2021-11-25] MEDS: PANTOPRAZOLE 40 MG TABLET PO SCH (07:08)
--- NOTE | 2021-11-25 09:06 | P.PN ---
Subjective Progress Note Date: 11/24/21 Principal diagnosis: New-onset CHF Uncontrolled hypertension Acute on chronic kidney disease Electrolyte imbalance Chronic EtOH use 66-year-old male who presents to the emergency department complaining of swelling in his legs and shortness of breath with any exertion. Patient denies any pain. Patient denies chest pain. Patient denies any palpitations per patient denies any recent fever chills or cough. Patient states she's had this happen to this degree once before couple years ago and he is not sure why it occurred. Patient states he is a daily drinker. Patient also states he has kidney problems. Patient denies any lightheadedness or dizziness. Patient denies any difficulty breathing shortness of breath. Patient denies any cough. Patient denies abdominal pain patient denies nausea vomiting diarrhea. EKG shows sinus rhythm at 97 bpm PA interval 176 QRS is 126 QT interval 353 QTC is 408. Patient's EKG shows no acute ST segment elevation or depression. Chest x-ray shows pulmonary edema. Lab review reveals WBC of 7.7, hemoglobin of 9.5 and platelet count of 283, sodium 125, potassium 4.4, BUN/creatinine of 31/2.86 and blood glucose of 106, magnesium of 1.5; troponin I 0.023, BNP 3470 Patient is evaluated by cardiology and recommending to continue with IV Lasix at this time with close monitoring of renal function and electrolytes - 2-D echocardiogram with Doppler is ordered to assess left ventricular function and etiology of heart failure Patient is placed on a small dose of losartan in light of chronic kidney disease and for improved blood pressure control Objective - Vital Signs Vital signs: Vital Signs Temp 98.1 F 11/24/21 08:00 Pulse 103 H 11/24/21 08:00 Resp 17 11/24/21 08:00 BP 152/88 11/24/21 08:00 Pulse Ox 96 11/24/21 08:00 FiO2 Intake & Output 11/23/21 11/24/21 11/24/21 18:59 06:59 18:59 Intake Total 2160 180 Balance 2160 180 Weight 154.221 kg 151.4 kg Intake: Oral 2160 180 Other: Voiding Method Toilet Toilet Urinal - Exam PHYSICAL EXAMINATION: GENERAL: The patient is alert and oriented x3, not in any acute distress. Well developed, well nourished. HEENT: Pupils are round and equally reacting to light. EOMI. No scleral icterus. No conjunctival pallor. Normocephalic, atraumatic. No pharyngeal erythema. No thyromegaly. CARDIOVASCULAR: S1 and S2 present. No murmurs, rubs, or gallops. PULMONARY: Chest is clear to auscultation, no wheezing or crackles. ABDOMEN: Soft, nontender, nondistended, normoactive bowel sounds. No palpable organomegaly. MUSCULOSKELETAL: No joint swelling or deformity. EXTREMITIES: No cyanosis, clubbing, or pedal edema. NEUROLOGICAL: Gross neurological examination did not reveal any focal deficits. SKIN: No rashes. - Labs CBC & Chem 7: 11/24/21 09:21 11/24/21 09:21 Labs: Abnormal Lab Results - Last 24 Hours (Table) 11/23/21 11/23/21 11/24/21 Range/Units 12:34 12:34 09:21 RBC 2.89 L 2.78 L (4.30-5.90) m/uL Hgb 9.5 L 9.0 L (13.0-17.5) gm/dL Hct 29.0 L 27.6 L (39.0-53.0) % MCV 100.3 H (80.0-100.0) fL RDW 16.6 H 16.1 H (11.5-15.5) % Lymphocytes # 0.7 L 0.6 L (1.0-4.8) k/uL Sodium 125 L (137-145) mmol/L Carbon Dioxide 19 L (22-30) mmol/L BUN 31 H (9-20) mg/dL Creatinine 2.86 H (0.66-1.25) mg/dL Glucose 106 H (74-99) mg/dL Calcium (8.4-10.2) mg/dL Magnesium 1.5 L (1.6-2.3) mg/dL Alkaline Phosphatase 180 H (38-126) U/L 11/24/21 Range/Units 09:21 RBC (4.30-5.90) m/uL Hgb (13.0-17.5) gm/dL Hct (39.0-53.0) % MCV (80.0-100.0) fL RDW (11.5-15.5) % Lymphocytes # (1.0-4.8) k/uL Sodium 128 L (137-145) mmol/L Carbon Dioxide (22-30) mmol/L BUN 36 H (9-20) mg/dL Creatinine 2.98 H (0.66-1.25) mg/dL Glucose 142 H (74-99) mg/dL Calcium 8.1 L (8.4-10.2) mg/dL Magnesium (1.6-2.3) mg/dL Alkaline Phosphatase (38-126) U/L Assessment and Plan Assessment: 1. New onset CHF - Patient isn't placed on Lasix 40 mg IV every 12 hours; monitor strict CAROL's, daily weights, low salt and fluid restricted diet - 2-D echo is ordered and pending; cardiology on board; appreciate recommendations 2. Uncontrolled hypertension; cardiology recommending to add small dose of losartan 25 mg daily for blood pressure control and given chronic kidney disease; we will make further adjustments as needed 3. Acute on chronic kidney disease; unable to start on IV fluid hydration due to CHF exacerbation; we will avoid nephrotoxins and hypotension; monitor renal function and electrolytes; consult nephrology 4. Electrolyte imbalance; hypomagnesemia/hyponatremia; magnesium supplemented in ED; we will place patient on fluid restriction for hyponatremia 5. Chronic EtOH use; patient has been placed on CIWA protocol with Librium 6. History of diabetes mellitus; monitor Accu-Cheks every before meals and at bedtime with insulin sliding scale 7. Gastroesophageal reflux disease; Protonix 40 mg daily DVT prophylaxis; SCDs/subcu heparin CODE STATUS; DO NOT RESUSCITATE
--- NOTE | 2021-11-25 09:12 | P.NPCON ---
History of Present Illness - Reason for Consult acute renal failure - History of Present Illness Patient is a 66-year-old male with history of type 2 diabetes, neuropathy, CK D stage IV to IIIB with previous creatinine around 2.1-2.2 mg/dL in 2020. Etiology is diabetic kidney disease. Patient is admitted to the hospital with complaints of increased weight gain, increased swelling of his lower extremities and some shortness of breath. No complaints of chest pain No significant urinary symptoms No history of recent use of NSAIDs. Patient states that he does not follow-up with a radiation therapist as outpatient. Blood pressure has not been low. Patient is maintained on angiotensin receptor blockers. Patient has been voiding. Urine output is not accurately charted. Currently maintained on 40 mg of Lasix IV every 8 hours Serum creatinine 2.8 mg/dL on initial admission and up to 2.9 today Sodium was 125 on initial admission and it is up to 128 today. Review of Systems As per HPI, other systems negative Past Medical History Past Medical History: Diabetes Mellitus, GERD/Reflux, Renal Disease Additional Past Medical History / Comment(s): ETOH abuse, hyponatremia, NIDDM type II-lost weight and no longer on any diabetic meds, bilateral feet neuropathy, CKD stage III, chronic anemia, past wound R foot/oste omylitis/cellulitis, constipation alternating with diarrhea. History of Any Multi-Drug Resistant Organisms: None Reported Past Surgical History: Cholecystectomy, Orthopedic Surgery Additional Past Surgical History / Comment(s): L index finger traumatic finger amp/rest of L hand fingers were reattached, colonoscopy, bilateral cataract removals/lens implants then film removed bilateral eyes. Past Anesthesia/Blood Transfusion Reactions: No Reported Reaction, Motion Sickness Additional Past Anesthesia/Blood Transfusion Reaction / Comment(s): unknown family hx Past Psychological History: Depression Smoking Status: Current every day smoker Past Alcohol Use History: Abuse, Heavy Past Drug Use History: None Reported - Past Family History Mother Family Medical History: No Reported History Additional Family Medical History / Comment(s): Mother left when pt was 2 yrs old. Father Family Medical History: Blood Disorder, Cancer Additional Family Medical History / Comment(s): Clotting disorder-"bleeder". Father had 5 different types of cancers. Brother(s) Family Medical History: Deep Vein Thrombosis (DVT) Medications and Allergies Home Medications Medication Instructions Recorded Confirmed Type Amitriptyline HCl [Elavil] 50 mg PO HS 11/23/21 11/23/21 History Furosemide [Lasix] 40 mg PO BID 11/23/21 11/23/21 History Vitamin A 2,400 mcg PO DAILY 11/23/21 11/23/21 History Vitamin B Complex 1 cap PO DAILY 11/23/21 11/23/21 History Allergies Allergy/AdvReac Type Severity Reaction Status Date / Time No Known Allergies Allergy Verified 11/23/21 14:02 Physical Exam Vitals: Vital Signs Temp Pulse Resp BP Pulse Ox 11/25/21 08:03 95 11/25/21 03:41 97.9 F 80 17 151/91 96 11/24/21 23:40 97.5 F L 75 15 142/83 96 11/24/21 20:00 97.4 F L 92 17 149/94 97 11/24/21 16:00 97.8 F 93 17 153/87 94 L 11/24/21 14:00 94 19 11/24/21 11:53 98.3 F 94 19 142/81 94 L Intake and Output 11/24/21 11/25/21 11/25/21 22:59 06:59 14:59 Intake Total 240 540 118 Balance 240 540 118 Intake: Oral 240 540 118 Other: Voiding Method Toilet Toilet # Voids 2 # Bowel Movements 0 Weight 147.4 kg Alert oriented 3 Examination of the heart S1 and S2 Examination lungs bilateral breath sounds are heard abdomen is soft obese nontender COUNSELOR DORMIT[employer] exam is grossly intact Bilateral chronic skin changes with chronic edema noted patient is awake, comfortable not in any acute distress Alert oriented 3 COUNSELOR DORMITORY exam grossly intact Results - Lab Results Most recent lab results Calcium 8.1 mg/dL (8.4-10.2) L 11/24/21 09:21 Magnesium 1.5 mg/dL (1.6-2.3) L 11/23/21 12:34 11/24/21 09:21 11/24/21 09:21 Assessment and Plan Assessment: 1. Acute kidney injury cardiorenal, blood pressure is not low. Continue with current dose of Lasix. Rule out urine retention. Check UA. May continue with the Cozaar for now 2. Chronic kidney disease NKF stage IV secondary to diabetic kidney disease maintained on angiotensin receptor blockers 3. Hypervolemic hyponatremia, improved with diuresis 4. Hypertension with CK D stage IV 5. Anemia rule out iron deficiency 6. Morbid obesity Plan: Continue with current dose of Lasix Check UA Monitor urine output accurately Check iron profile Repeat labs in a.m. Avoid nephrotoxic agents May continue with the Cozaar for now Follow-up on echocardiogram for ejection fraction and right heart pressures Thank you for the consultation. We'll continue to follow the patient with you during his hospitalization.
[2021-11-25] MEDS: LOSARTAN 25 MG TAB PO SCH (10:07)
[2021-11-25] MEDS: HEPARIN SODIUM,PORCINE/PF 5,000 UNIT/0.5 ML SYRINGE SQ SCH ×2 (10:07→15:59)
[2021-11-25 11:27] LABS: Glucose,Whole Blood 137 mg/dL (70-110)
--- NOTE | 2021-11-25 11:33 | CA ---
Transthoracic Echo Report Name: Denny Kovacs Age: 66 Gender: M : 1955 Exam Date: 11/25/2021 08:18 Exam Location: [facility] Ht (in): 71 Wt (lb): 324 Ordering Physician: Kehinde Mills MD ([id number]) Attending/Referring Phys: Leather Polisher Delfina Bey RDCS Procedure CPT: Indications: chf Cardiac Hx: Technical Quality: Technically difficult study Contrast 1: Lumason Total Dose (mL): 1 Contrast 2: Agitated Saline Total Dose (mL): 1 MEASUREMENTS (Male / Female) Normal Values 2D ECHO LV Diastolic Diameter PLAX 4.9 cm 4.2 - 5.9 / 3.9 - 5.3 cm LV Systolic Diameter PLAX 2.4 cm IVS Diastolic Thickness 1.5 cm 0.6 - 1.0 / 0.6 - 0.9 cm LVPW Diastolic Thickness 1.5 cm 0.6 - 1.0 / 0.6 - 0.9 cm LV Relative Wall Thickness 0.6 RV Internal Dim ED PLAX 3.6 cm M-MODE Aortic Root Diameter MM 4.1 cm LA Systolic Diameter MM 4.2 cm LA Ao Ratio MM 1.0 MV E Point Septal Separation 1.2 cm AV Cusp Separation MM 2.4 cm DOPPLER AV Peak Velocity 173.2 cm/s AV Peak Gradient 12.0 mmHg MV Area PHT 5.5 cm??? MR Peak Velocity 150.8 cm/s MR Peak Gradient 9.1 mmHg Mitral E Point Velocity 118.9 cm/s Mitral A Point Velocity 100.1 cm/s Mitral E to A Ratio 1.2 MV Deceleration Time 139.2 ms TR Peak Velocity 262.0 cm/s TR Peak Gradient 27.5 mmHg Right Ventricular Systolic Press 30.2 mmHg FINDINGS Left Ventricle Moderately increased septal wall thickness. Left ventricular ejection fraction is estimated at 55-60 %. Left ventricular cavity size normal. Right Ventricle Mild right ventricular dilatation. Right Atrium The right atrium is normal in size. Left Atrium The left atrium is normal in size. Mitral Valve Structurally normal mitral valve without significant stenosis or prolapse. There is trace mitral regurgitation. Aortic Valve Structurally normal aortic valve without significant sclerosis or stenosis. There is no aortic regurgitation. Tricuspid Valve Structurally normal tricuspid valve without significant stenosis. Pulmonary artery systolic pressure is normal. Mild tricuspid regurgitation. Pulmonic Valve Structurally normal pulmonic valve without significant stenosis. There is no pulmonic regurgitation. Pericardium Normal pericardium without effusion. Aorta Dialated aorta measuring 4.1 cm. CONCLUSIONS Left ventricular systolic function is normal Previewed by: Dr. Dario Rodney MD (Electronically Signed) Final Date: 25 November 2021 11:33
[2021-11-25] MEDS: hydrALAZINE HCL 25 MG TAB PO SCH ×2 (12:08→21:39)
[2021-11-25] MEDS: ASPIRIN 81 MG PO SCH (12:08)
[2021-11-25] MEDS: ISOSORBIDE MONONITRATE ER 30 MG TAB.ER.24H PO SCH (12:08)
--- NOTE | 2021-11-25 12:38 | US ---
EXAMINATION TYPE: US kidneys/renal and bladder DATE OF EXAM: 11/25/2021 COMPARISON: NONE CLINICAL HISTORY: vera. Abnormal labs. Patient states he has kidney stones. EXAM MEASUREMENTS: Right Kidney: 10.2 x 4.3 x 5.3 cm Left Kidney: 9.7 x 5.1 x 4.9 cm Very limited exam due to patient body habitus, unable to penetrate Right Kidney: Possible echogenic focus mid kidney= 1.3 cm. Left Kidney: Possible echogenic focus= 0.8 cm Bladder: distended, anechoic Bilateral Jets not seen IMPRESSION: 1. Limited examination due to body habitus. 2. Nonobstructing bilateral renal stones
[2021-11-25 12:41] VITALS: BMI 42.8
--- NOTE | 2021-11-25 13:19 | P.PN ---
Subjective Progress Note Date: 11/25/21 HISTORY OF PRESENT ILLNESS: 11/24/2021 The patient is a 66-year-old gentleman with a past medical history significant for obesity as well as hypertension and also chronic kidney disease. No history of coronary artery disease or congestive heart failure and the patient doesn't follow with any loss control technician regularly. He presented to the emergency room with 3 weeks history of progressive dyspnea associated with orthopnea and also associated with severe bilateral lower extremities edema and weight gain. The patient stated that he gained 80 pounds within the last 3 months. He stated that he never been told that he has congestive heart failure. Obviously he has been gaining the weight very slightly. No symptoms of chest pain or chest discomfort. No dizziness or lightheadedness and no feeling of heart racing or fluttering. No presyncope or syncope. Clinically he was in failure and the patient was admitted to the hospital and started on IV Lasix. When he was seen this morning he stated that he is feeling somewhat better. On examination he continues to have bilateral rhonchi was diminished breathing sounds bilaterally and also bilateral lower extremities edema. Beside that he underwent a workup including chest x-ray showed pulmonary vascular congestions. His NT proBNP came in to be elevated at 4000. His hemoglobin has been stable. The creatinine is 2.87 which appeared to be his baseline. Troponin within normal limits. EKG showed sinus rhythm with no significant or ischemic ST or T-wave abnormalities. When he presented to the hospital he was hypertensive. He stated that he has been compliant with his medication. 11/25/2021 Patient examined this morning at the bedside. Patient denies chest pain or pressure. Patient denies shortness of breath at rest. He does report shortness of breath with exertion. Patient states he took a shower this morning and had to take a couple breaks because he was short of breath. He remains on Lasix 40 mg IV every 8 hours. PHYSICAL EXAM: VITAL SIGNS: Reviewed. GENERAL: Well-developed in no acute distress. NECK: Supple. No JVD or thyromegaly LUNGS: Respirations even and unlabored. Lungs essentially clear to auscultation bilaterally. HEART: Regular rate and rhythm. S1 and S2 heard. EXTREMITIES: Normal range of motion. No clubbing or cyanosis. Peripheral pulses intact. Bilateral nonpitting lower extremity edema ASSESSMENT: Shortness of breath Acute heart failure, type unknown, echo pending Acute on chronic kidney disease Hypertension PLAN: 2-D echo ordered. Await results Discontinue Cozaar Begin hydralazine 25 mg twice a day. Continue IV lasix 40mg IV Q8 hours Monitor kidney function Accurate I&O and daily weights Patient will need further cardiac workup in the future Further recommendations pending patient course Nurse practitioner note has been reviewed by physician. Signing provider agrees with the documented findings, assessment, and plan of care. Objective - Vital Signs Vital signs: Vital Signs Temp 98.1 F 11/25/21 11:54 Pulse 86 11/25/21 11:54 Resp 18 11/25/21 11:54 BP 114/58 11/25/21 11:54 Pulse Ox 93 L 11/25/21 11:54 FiO2 Intake & Output 11/24/21 11/25/21 11/25/21 18:59 06:59 18:59 Intake Total 420 540 118 Balance 420 540 118 Weight 147.4 kg 147.4 kg Intake: Oral 420 540 118 Other: Voiding Method Toilet Toilet Toilet Urinal # Voids 2 # Bowel Movements 0 - Labs CBC & Chem 7: 11/24/21 09:21 11/24/21 09:21 Labs: Abnormal Lab Results - Last 24 Hours (Table) 11/25/21 Range/Units 11:25 POC Glucose (mg/dL) 137 H (70-110) mg/dL
[2021-11-25 14:11] LABS: Appearance,Urine Clear (Clear); Bacteria,Urine Rare /hpf; Bilirubin,Urine Negative (Negative); Blood,Urine Small (Negative); Color,Urine Light Yellow; Glucose,Urine (UA) Negative (Negative); Ketones,Urine Negative (Negative); Leukocyte Esterase,Urine Negative (Negative); Nitrite,Urine Negative (Negative); Protein,Urine 1+ (Negative); RBC,Urine 1 /hpf (0-5); Specific Gravity,Urine 1.006 (1.001-1.035); Urobilinogen,Urine <2.0 mg/dL (<2.0); WBC,Urine 3 /hpf (0-5)
[2021-11-25 14:59] LABS: % Iron Saturation 12.8 (15.00-50.00)
[2021-11-25 16:35] LABS: Glucose,Whole Blood 169 mg/dL (70-110)
--- NOTE | 2021-11-25 17:12 | P.PN ---
Subjective Progress Note Date: 11/25/21 This a 66-year-old gentleman admitted with acute CHF, alcohol abuse and multiple other medical issues. Diuresing well on Lasix IV push with 24-hour I&O reflecting a negative fluid balance, improving exertional shortness of breath. Increased creatinine, 2.98. Sodium improving, up to 128 Denies chest pain, palpitations. Maintaining O2 sats in the mid 90s on room air. Objective - Vital Signs Vital signs: Vital Signs Temp 98.1 F 11/25/21 11:54 Pulse 86 11/25/21 11:54 Resp 18 11/25/21 11:54 BP 114/58 11/25/21 11:54 Pulse Ox 93 L 11/25/21 11:54 FiO2 Intake & Output 11/24/21 11/25/21 11/25/21 18:59 06:59 18:59 Intake Total 420 540 236 Balance 420 540 236 Weight 147.4 kg 147.4 kg Intake: Oral 420 540 236 Other: Voiding Method Toilet Toilet Toilet Urinal # Voids 2 # Bowel Movements 0 - Exam PHYSICAL EXAM: VITAL SIGNS: [As above] GENERAL: Sitting up in shower, no acute distress HEENT: Conjunctivae normal. eyes normal. NECK: No JVD. No thyroid enlargement. No LNs CARDIOVASCULAR: S1, S2 regular.No murmur RESPIRATION: Unlabored ,Breath sounds diminished in the bases. No rhonchi or crackles. ABDOMEN: Soft, nontender . No guarding. no masses palpable. Bowel sounds heard. LEGS: Improving bilateral non-pitting extremity edema, no clubbing, no cyanosis PSYCHIATRY: Alert and oriented X3, mood and affect normal. NERVOUS SYSTEM: Cranial N 2-12 grossly normal. No focal deficits. Strength and sensation grossly intact. Skin: Warm and dry, no rash - Labs CBC & Chem 7: 11/24/21 09:21 11/24/21 09:21 Labs: Abnormal Lab Results - Last 24 Hours (Table) 11/25/21 Range/Units 11:25 POC Glucose (mg/dL) 137 H (70-110) mg/dL Assessment and Plan Assessment: New-onset CHF, echo pending Uncontrolled hypertension Acute on chronic kidney disease,NKF, stage IV, cardiorenal. Anemia, of chronic disease, ruling out iron deficiency Diabetes mellitus Hyponatremia, hypervolemic Hypomagnesemia Chronic alcohol abuse Gastroesophageal reflux disease Morbid obesity, BMI 42.9 Plan: Continue on current medication regime ,monitoring and symptomatic treatment. Magnesium pending. Echo pending. Maintain diuresing as per cardiology/nephrology. Continue on CIWA protocol. Insulin sliding scale ordered for close monitoring of Accu-Cheks. Hemoglobin A1c ordered. Close monitoring of renal function, electrolytes with repeat labs ordered for a.m. The impression and plan of care has been dictated as directed. : I performed a history and examination of this patient, discussed the same with the dictator. I agree with the dictator's note ,documented as a scribe. Any additional findings or plans will be noted.
[2021-11-25 19:59] LABS: Glucose,Whole Blood 174 mg/dL (70-110)
[2021-11-25] MEDS: AMITRIPTYLINE HCL 50 MG TAB PO SCH (21:39)
[2021-11-26] MEDS: HEPARIN SODIUM,PORCINE/PF 5,000 UNIT/0.5 ML SYRINGE SQ SCH ×3 (00:03→16:40)
[2021-11-26 05:57] LABS: Glucose,Whole Blood 114 mg/dL (70-110)
[2021-11-26] MEDS: FUROSEMIDE 10 MG/ML 4 ML VIAL IV SCH ×2 (06:55→20:24)
[2021-11-26] MEDS: PANTOPRAZOLE 40 MG TABLET PO SCH (06:58)
[2021-11-26 08:28] LABS: Anisocytosis Slight; Basophils % (A) 0 %; Eosinophils # (A) 0.3 k/uL (0-0.7); Eosinophils % (A) 4 %; HCT 30.8 % (39.0-53.0); HGB 9.5 gm/dL (13.0-17.5); Hypochromasia Moderate; Lymphocytes % (A) 14 %; MCH 31.4 pg (25.0-35.0); MCV 101.3 fL (80.0-100.0); Macrocytosis Slight; Mean Platelet Volume 8.1; Monocytes # (A) 0.4 k/uL (0-1.0); Monocytes % (A) 6 %; Neutrophils # (A) 5.2 k/uL (1.3-7.7); Neutrophils % (A) 74 %; Platelet Count 279 k/uL (150-450); RBC 3.04 m/uL (4.30-5.90); RDW 16.2 % (11.5-15.5); WBC 6.9 k/uL (3.8-10.6)
[2021-11-26] MEDS: hydrALAZINE HCL 25 MG TAB PO SCH (08:40)
[2021-11-26] MEDS: ISOSORBIDE MONONITRATE ER 30 MG TAB.ER.24H PO SCH (08:40)
[2021-11-26] MEDS: ASPIRIN 81 MG PO SCH (08:40)
[2021-11-26 08:46] LABS: Calcium 8.2 mg/dL (8.4-10.2); Potassium 4.5 mmol/L (3.5-5.1)
[2021-11-26] MEDS ORDERED: hydrALAZINE HCL 25 MG TAB PO ONE (09:00)
--- NOTE | 2021-11-26 10:49 | P.PN ---
Subjective Patient is seen for follow-up for acute kidney injury on top of chronic kidney disease. Patient has underlying C daily stage IIIB to 4 with previous creatinine about 2.1-2.2 mg/dL secondary to diabetic kidney disease. He was admitted to the hospital with volume overload and is currently being diuresed. Serum creatinine was 2.8 on admission and it increased to 3.17 today. Overall patient states he is feeling better with improvement in his respiratory status. His weight is also decreased. 24-hour urine output not documented accurately. Objective - Vital Signs Vital signs: Vital Signs Temp 97.8 F 11/26/21 08:40 Pulse 77 11/26/21 08:40 Resp 18 11/26/21 08:40 BP 161/87 11/26/21 08:40 Pulse Ox 98 11/26/21 08:40 FiO2 Intake & Output 11/25/21 11/26/21 11/26/21 18:59 06:59 18:59 Intake Total 354 Output Total 400 Balance -46 Weight 147.4 kg 144.5 kg Intake: Oral 354 Output: Urine 400 Other: Voiding Method Toilet Toilet Toilet # Voids 1 - Exam Patient is awake, comfortable, not in any acute distress Examination of the heart S1 and S2 Examination lungs bilateral breath sounds are heard Abdomen is soft nontender Examination of the lower extremities shows chronic skin changes with much improved edema WOUND CARE SPECIALIST exam grossly intact - Labs CBC & Chem 7: 11/26/21 07:57 11/26/21 07:57 Labs: Abnormal Lab Results - Last 24 Hours (Table) 11/25/21 11/25/21 11/25/21 Range/Units 09:21 11:25 12:07 RBC (4.30-5.90) m/uL Hgb (13.0-17.5) gm/dL Hct (39.0-53.0) % MCV (80.0-100.0) fL RDW (11.5-15.5) % Sodium (137-145) mmol/L BUN (9-20) mg/dL Creatinine (0.66-1.25) mg/dL Glucose (74-99) mg/dL POC Glucose (mg/dL) 137 H (70-110) mg/dL Calcium (8.4-10.2) mg/dL Iron 29 L (65-175) ug/dL % Saturation 12.80 L (15.00-50.00) Transferrin 164.0 L (204.0-354.0) mg/dL Urine Protein 1+ H (Negative) Urine Blood Small H (Negative) Urine Bacteria Rare H (None) /hpf 11/25/21 11/25/21 11/26/21 Range/Units 16:34 19:57 05:55 RBC (4.30-5.90) m/uL Hgb (13.0-17.5) gm/dL Hct (39.0-53.0) % MCV (80.0-100.0) fL RDW (11.5-15.5) % Sodium (137-145) mmol/L BUN (9-20) mg/dL Creatinine (0.66-1.25) mg/dL Glucose (74-99) mg/dL POC Glucose (mg/dL) 169 H 174 H 114 H (70-110) mg/dL Calcium (8.4-10.2) mg/dL Iron (65-175) ug/dL % Saturation (15.00-50.00) Transferrin (204.0-354.0) mg/dL Urine Protein (Negative) Urine Blood (Negative) Urine Bacteria (None) /hpf 11/26/21 11/26/21 Range/Units 07:57 07:57 RBC 3.04 L (4.30-5.90) m/uL Hgb 9.5 L (13.0-17.5) gm/dL Hct 30.8 L (39.0-53.0) % MCV 101.3 H (80.0-100.0) fL RDW 16.2 H (11.5-15.5) % Sodium 134 L (137-145) mmol/L BUN 40 H (9-20) mg/dL Creatinine 3.17 H (0.66-1.25) mg/dL Glucose 154 H (74-99) mg/dL POC Glucose (mg/dL) (70-110) mg/dL Calcium 8.2 L (8.4-10.2) mg/dL Iron (65-175) ug/dL % Saturation (15.00-50.00) Transferrin (204.0-354.0) mg/dL Urine Protein (Negative) Urine Blood (Negative) Urine Bacteria (None) /hpf Assessment and Plan Assessment: 1. Acute kidney injury cardiorenal, blood pressure is not low. Renal function is slightly worse with creatinine up to 3.1. Cozaar was discontinued and we will also decrease the dose of Lasix today. 2. Chronic kidney disease NKF stage IV secondary to diabetic kidney disease maintained on angiotensin receptor blockers, baseline creatinine about 2-2.2 mg/dL 3. Hypervolemic hyponatremia, improved with diuresis 4. Hypertension with CK D stage IV 5. Anemia of chronic disease with underlying iron deficiency. Add IV iron 6. Morbid obesity Plan: Decrease Lasix today. Switch to by mouth Lasix tomorrow. Patient can possibly discharge tomorrow with plans to follow-up in the office in 1-2 weeks. Patient is advised regarding salt and fluid restriction. IV iron
[2021-11-26 10:50] LABS: Chol/HDL Ratio 2.18 Ratio
--- NOTE | 2021-11-26 11:29 | P.PN ---
Subjective Progress Note Date: 11/26/21 HISTORY OF PRESENT ILLNESS: 11/24/2021 The patient is a 66-year-old gentleman with a past medical history significant for obesity as well as hypertension and also chronic kidney disease. 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 He presented to the emergency room with 3 weeks history of progressive dyspnea associated with orthopnea and also associated with severe bilateral lower extremities edema and weight gain. The patient stated that he gained 80 pounds within the last 3 months. He stated that he never been told that he has congestive heart failure. Obviously he has been gaining the weight very slightly. No symptoms of chest pain or chest discomfort. No dizziness or lightheadedness and no feeling of heart racing or fluttering. No presyncope or syncope. Clinically he was in failure and the patient was admitted to the hospital and started on IV Lasix. When he was seen this morning he stated that he is feeling somewhat better. On examination he continues to have bilateral rhonchi was diminished breathing sounds bilaterally and also bilateral lower extremities edema. Beside that he underwent a workup including chest x-ray showed pulmonary vascular congestions. His NT proBNP came in to be elevated at 4000. His hemoglobin has been stable. The creatinine is 2.87 which appeared to be his baseline. Troponin within normal limits. EKG showed sinus rhythm with no significant or ischemic ST or T-wave abnormalities. When he presented to the hospital he was hypertensive. He stated that he has been compliant with his medication. 11/25/2021 Patient examined this morning at the bedside. Patient denies chest pain or pressure. Patient denies shortness of breath at rest. He does report shortness of breath with exertion. Patient states he took a shower this morning and had to take a couple breaks because he was short of breath. He remains on Lasix 40 mg IV every 8 hours. 11/26/2021 Patient examined this morning at the bedside. Patient denies chest pain or pressure. Patient states his shortness of breath is improving. He denies any shortness of breath at rest. He reports minimal shortness of breath with exertion which is improved from yesterday. Echocardiogram completed revealing ejection fraction 55-60%. Patient remains on IV Lasix 40 mg every 8 hours. Kidney function today slightly worse with a creatinine of 3.17. Blood pressure is elevated this morning with a reading of 161/87. PHYSICAL EXAM: VITAL SIGNS: Reviewed. GENERAL: Well-developed in no acute distress. NECK: Supple. No JVD or thyromegaly LUNGS: Respirations even and unlabored. Lungs essentially clear to auscultation bilaterally. HEART: Regular rate and rhythm. S1 and S2 heard. EXTREMITIES: Normal range of motion. No clubbing or cyanosis. Peripheral pulses intact. Bilateral nonpitting lower extremity edema ASSESSMENT: Shortness of breath Acute heart failure with preserved ejection fraction, EF 55-60% Acute on chronic kidney disease Hypertension PLAN: Decrease Lasix to 40 mg every 12 hours secondary to worsening creatinine Monitor kidney function Accurate I&O and daily weights Increase hydralazine to 50 mg twice a day for optimal blood pressure control Further recommendations pending patient course Nurse practitioner note has been reviewed by physician. Signing provider agrees with the documented findings, assessment, and plan of care. Objective - Vital Signs Vital signs: Vital Signs Temp 97.8 F 11/26/21 11:20 Pulse 77 11/26/21 11:20 Resp 18 11/26/21 11:20 BP 129/63 11/26/21 11:20 Pulse Ox 95 11/26/21 11:20 FiO2 Intake & Output 11/25/21 11/26/21 11/26/21 18:59 06:59 18:59 Intake Total 354 Output Total 400 Balance -46 Weight 147.4 kg 144.5 kg Intake: Oral 354 Output: Urine 400 Other: Voiding Method Toilet Toilet Toilet # Voids 1 - Labs CBC & Chem 7: 11/26/21 07:57 11/26/21 07:57 Labs: Abnormal Lab Results - Last 24 Hours (Table) 11/25/21 11/25/21 11/25/21 Range/Units 09:21 11:25 12:07 RBC (4.30-5.90) m/uL Hgb (13.0-17.5) gm/dL Hct (39.0-53.0) % MCV (80.0-100.0) fL RDW (11.5-15.5) % Sodium (137-145) mmol/L BUN (9-20) mg/dL Creatinine (0.66-1.25) mg/dL Glucose (74-99) mg/dL POC Glucose (mg/dL) 137 H (70-110) mg/dL Calcium (8.4-10.2) mg/dL Iron 29 L (65-175) ug/dL % Saturation 12.80 L (15.00-50.00) Transferrin 164.0 L (204.0-354.0) mg/dL Cholesterol (0.00-200.00) mg/dL HDL Cholesterol (40.00-60.00) mg/dL Urine Protein 1+ H (Negative) Urine Blood Small H (Negative) Urine Bacteria Rare H (None) /hpf 11/25/21 11/25/21 11/26/21 Range/Units 16:34 19:57 05:55 RBC (4.30-5.90) m/uL Hgb (13.0-17.5) gm/dL Hct (39.0-53.0) % MCV (80.0-100.0) fL RDW (11.5-15.5) % Sodium (137-145) mmol/L BUN (9-20) mg/dL Creatinine (0.66-1.25) mg/dL Glucose (74-99) mg/dL POC Glucose (mg/dL) 169 H 174 H 114 H (70-110) mg/dL Calcium (8.4-10.2) mg/dL Iron (65-175) ug/dL % Saturation (15.00-50.00) Transferrin (204.0-354.0) mg/dL Cholesterol (0.00-200.00) mg/dL HDL Cholesterol (40.00-60.00) mg/dL Urine Protein (Negative) Urine Blood (Negative) Urine Bacteria (None) /hpf 11/26/21 11/26/21 11/26/21 Range/Units 07:57 07:57 07:57 RBC 3.04 L (4.30-5.90) m/uL Hgb 9.5 L (13.0-17.5) gm/dL Hct 30.8 L (39.0-53.0) % MCV 101.3 H (80.0-100.0) fL RDW 16.2 H (11.5-15.5) % Sodium 134 L (137-145) mmol/L BUN 40 H (9-20) mg/dL Creatinine 3.17 H (0.66-1.25) mg/dL Glucose 154 H (74-99) mg/dL POC Glucose (mg/dL) (70-110) mg/dL Calcium 8.2 L (8.4-10.2) mg/dL Iron (65-175) ug/dL % Saturation (15.00-50.00) Transferrin (204.0-354.0) mg/dL Cholesterol 244.00 H (0.00-200.00) mg/dL HDL Cholesterol 112.00 H (40.00-60.00) mg/dL Urine Protein (Negative) Urine Blood (Negative) Urine Bacteria (None) /hpf
[2021-11-26] MEDS: SODIUM FERRIC GLUCONAT-SUCROSE 125 MG in SODIUM CHLORIDE 0.9% 100 ML IVPB SCH (11:35)
[2021-11-26 11:45] LABS: Glucose,Whole Blood 127 mg/dL (70-110)
[2021-11-26 16:50] LABS: Glucose,Whole Blood 162 mg/dL (70-110)
--- NOTE | 2021-11-26 18:58 | P.PN ---
Subjective Progress Note Date: 11/26/21 This a 66-year-old gentleman admitted with acute CHF, alcohol abuse and multiple other medical issues. Diuresing well on Lasix IV push with 24-hour I&O reflecting a negative fluid balance, improving exertional shortness of breath. Increased creatinine, 2.98. Sodium improving, up to 128 Denies chest pain, palpitations. Maintaining O2 sats in the mid 90s on room air. 11/26/2021 diuresing well on Lasix IV push with 24-hour I&O inaccurate but is reflecting a decreased weight. Hypertensive , hydralazine increased .Renal function mildly worsened,BUN 40, creatinine 3.17. Sodium improving, 134. Afe brile, normal WBC Reports breathing better, no cough, decreasing edema. Maintaining O2 sats in the mid 90s on room air. Denies sweats or shakes. Reports upon ambulating in his legs felt like Jell-O, weak. Echo completed yesterday, reporting moderately increased septal wall thickness, normal LV f unction, EF 55-60%. Objective - Vital Signs Vital signs: Vital Signs Temp 97.8 F 11/26/21 16:41 Pulse 77 11/26/21 16:41 Resp 18 11/26/21 16:41 BP 133/79 11/26/21 16:41 Pulse Ox 94 L 11/26/21 16:41 FiO2 Intake & Output 11/25/21 11/26/21 11/26/21 18:59 06:59 18:59 Intake Total 354 716 Output Total 400 Balance -46 716 Weight 147.4 kg 144.5 kg Intake: Oral 354 716 Output: Urine 400 Other: Voiding Method Toilet Toilet Toilet # Voids 1 3 - Exam PHYSICAL EXAM: VITAL SIGNS: [As above] GENERAL: Alert and oriented 3, Sitting up at side of bed, no acute distress HEENT: Conjunctivae normal. eyes normal. MMM. NECK: Supple, No JVD. CARDIOVASCULAR: S1, S2 regular.No murmur RESPIRATION: Unlabored ,Breath sounds CTA. ABDOMEN: Soft, nontender . No guarding. no masses palpable.+BS. LEGS: Improving bilateral non-pitting extremity edema, no clubbing, no cyanosis NERVOUS SYSTEM: Cranial N 2-12 grossly normal. No focal deficits. Strength and sensation grossly intact. Skin: Warm and dry, no rash - Labs CBC & Chem 7: 11/26/21 07:57 11/26/21 07:57 Labs: Abnormal Lab Results - Last 24 Hours (Table) 11/25/21 11/26/21 11/26/21 Range/Units 19:57 05:55 07:57 RBC 3.04 L (4.30-5.90) m/uL Hgb 9.5 L (13.0-17.5) gm/dL Hct 30.8 L (39.0-53.0) % MCV 101.3 H (80.0-100.0) fL RDW 16.2 H (11.5-15.5) % Sodium (137-145) mmol/L BUN (9-20) mg/dL Creatinine (0.66-1.25) mg/dL Glucose (74-99) mg/dL POC Glucose (mg/dL) 174 H 114 H (70-110) mg/dL Calcium (8.4-10.2) mg/dL Cholesterol (0.00-200.00) mg/dL HDL Cholesterol (40.00-60.00) mg/dL 11/26/21 11/26/21 11/26/21 Range/Units 07:57 07:57 11:41 RBC (4.30-5.90) m/uL Hgb (13.0-17.5) gm/dL Hct (39.0-53.0) % MCV (80.0-100.0) fL RDW (11.5-15.5) % Sodium 134 L (137-145) mmol/L BUN 40 H (9-20) mg/dL Creatinine 3.17 H (0.66-1.25) mg/dL Glucose 154 H (74-99) mg/dL POC Glucose (mg/dL) 127 H (70-110) mg/dL Calcium 8.2 L (8.4-10.2) mg/dL Cholesterol 244.00 H (0.00-200.00) mg/dL HDL Cholesterol 112.00 H (40.00-60.00) mg/dL 11/26/21 Range/Units 16:37 RBC (4.30-5.90) m/uL Hgb (13.0-17.5) gm/dL Hct (39.0-53.0) % MCV (80.0-100.0) fL RDW (11.5-15.5) % Sodium (137-145) mmol/L BUN (9-20) mg/dL Creatinine (0.66-1.25) mg/dL Glucose (74-99) mg/dL POC Glucose (mg/dL) 162 H (70-110) mg/dL Calcium (8.4-10.2) mg/dL Cholesterol (0.00-200.00) mg/dL HDL Cholesterol (40.00-60.00) mg/dL Assessment and Plan Assessment: New-onset CHF, echo pending Uncontrolled hypertension Acute on chronic kidney disease,NKF, stage IV, cardiorenal. Anemia, of chronic disease, ruling out iron deficiency Diabetes mellitus Hyponatremia, hypervolemic Hypomagnesemia Chronic alcohol abuse Gastroesophageal reflux disease Morbid obesity, BMI 42.9 Plan: Continue on current medication regime ,monitoring and symptomatic treatment. Diuresing as per cardiology/nephrology; dose decreased, converting to oral tomorrow as per nephrology. Continue on CIWA protocol. Close monitoring of renal function, electrolytes with repeat labs ordered for a.m. smoking sensation discussed, patient states has quit as of 4 weeks ago . Discussed alcohol abstinence , patient states he quit. PT/OT consulted .discharge shakeel levine in progress for tomorrow. The impression and plan of care has been dictated as directed. : I performed a history and examination of this patient, discussed the same with the dictator. I agree with the dictator's note ,documented as a scribe. Any additional findings or plans will be noted.
[2021-11-26 20:11] LABS: Glucose,Whole Blood 125 mg/dL (70-110)
[2021-11-26] MEDS: AMITRIPTYLINE HCL 50 MG TAB PO SCH (20:27)
[2021-11-26] MEDS: hydrALAZINE HCL 50 MG TAB PO SCH (20:27)
[2021-11-27] MEDS: HEPARIN SODIUM,PORCINE/PF 5,000 UNIT/0.5 ML SYRINGE SQ SCH ×4 (00:01→22:51)
[2021-11-27 06:05] LABS: Glucose,Whole Blood 131 mg/dL (70-110)
[2021-11-27] MEDS: PANTOPRAZOLE 40 MG TABLET PO SCH (06:57)
[2021-11-27] MEDS: SODIUM FERRIC GLUCONAT-SUCROSE 125 MG in SODIUM CHLORIDE 0.9% 100 ML IVPB SCH (08:33)
[2021-11-27] MEDS: hydrALAZINE HCL 50 MG TAB PO SCH ×2 (08:37→19:48)
[2021-11-27] MEDS: ISOSORBIDE MONONITRATE ER 30 MG TAB.ER.24H PO SCH (08:37)
[2021-11-27] MEDS: FUROSEMIDE 10 MG/ML 4 ML VIAL IV SCH (08:37)
[2021-11-27] MEDS: ASPIRIN 81 MG PO SCH (08:37)
[2021-11-27 10:38] LABS: Calcium 7.8 mg/dL (8.4-10.2); Potassium 4.5 mmol/L (3.5-5.1)
--- NOTE | 2021-11-27 10:53 | P.PN ---
Subjective Progress Note Date: 11/27/21 HISTORY OF PRESENT ILLNESS: 11/24/2021 The patient is a 66-year-old gentleman with a past medical history significant for obesity as well as hypertension and also chronic kidney disease. 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 He presented to the emergency room with 3 weeks history of progressive dyspnea associated with orthopnea and also associated with severe bilateral lower extremities edema and weight gain. The patient stated that he gained 80 pounds within the last 3 months. He stated that he never been told that he has congestive heart failure. Obviously he has been gaining the weight very slightly. No symptoms of chest pain or chest discomfort. No dizziness or lightheadedness and no feeling of heart racing or fluttering. No presyncope or syncope. Clinically he was in failure and the patient was admitted to the hospital and started on IV Lasix. When he was seen this morning he stated that he is feeling somewhat better. On examination he continues to have bilateral rhonchi was diminished breathing sounds bilaterally and also bilateral lower extremities edema. Beside that he underwent a workup including chest x-ray showed pulmonary vascular congestions. His NT proBNP came in to be elevated at 4000. His hemoglobin has been stable. The creatinine is 2.87 which appeared to be his baseline. Troponin within normal limits. EKG showed sinus rhythm with no significant or ischemic ST or T-wave abnormalities. When he presented to the hospital he was hypertensive. He stated that he has been compliant with his medication. 11/25/2021 Patient examined this morning at the bedside. Patient denies chest pain or pressure. Patient denies shortness of breath at rest. He does report shortness of breath with exertion. Patient states he took a shower this morning and had to take a couple breaks because he was short of breath. He remains on Lasix 40 mg IV every 8 hours. 11/26/2021 Patient examined this morning at the bedside. Patient denies chest pain or pressure. Patient states his shortness of breath is improving. He denies any shortness of breath at rest. He reports minimal shortness of breath with exertion which is improved from yesterday. Echocardiogram completed revealing ejection fraction 55-60%. Patient remains on IV Lasix 40 mg every 8 hours. Kidney function today slightly worse with a creatinine of 3.17. Blood pressure is elevated this morning with a reading of 161/87. 11/27/2021 Patient examined this morning at the bedside. Patient denies chest pain or pressure. He currently denies SOB. He is a little frustrated this morning because he states he did not lose any weight this morning when they weighed him compared to yesterday. He remains on IV lasix. Hydralazine was increased yesterday and patients blood pressure has improved today with a recent reading of 124/69. PHYSICAL EXAM: VITAL SIGNS: Reviewed. GENERAL: Well-developed in no acute distress. NECK: Supple. No JVD or thyromegaly LUNGS: Respirations even and unlabored. Lungs essentially clear to auscultation bilaterally. HEART: Regular rate and rhythm. S1 and S2 heard. EXTREMITIES: Normal range of motion. No clubbing or cyanosis. Peripheral pulses intact. Bilateral nonpitting lower extremity edema ASSESSMENT: Shortness of breath Acute heart failure with preserved ejection fraction, EF 55-60% Acute on chronic kidney disease Hypertension PLAN: Continue IV Lasix. Await kidney function from this morning Monitor kidney function Accurate I&O and daily weights Continue additional cardiac medications Further recommendations pending patient course Nurse practitioner note has been reviewed by physician. Signing provider agrees with the documented findings, assessment, and plan of care. Objective - Vital Signs Vital signs: Vital Signs Temp 97.7 F 11/27/21 08:32 Pulse 103 H 11/27/21 08:32 Resp 18 11/27/21 08:32 BP 124/69 11/27/21 08:32 Pulse Ox 94 L 11/27/21 08:32 FiO2 Intake & Output 11/26/21 11/27/21 11/27/21 18:59 06:59 18:59 Intake Total 716 240 Balance 716 240 Weight 144.4 kg Intake: Oral 716 240 Other: Voiding Method Toilet Toilet Toilet # Voids 3 4 - Labs CBC & Chem 7: 11/26/21 07:57 11/26/21 07:57 Labs: Abnormal Lab Results - Last 24 Hours (Table) 11/26/21 11/26/21 11/26/21 Range/Units 07:57 11:41 16:37 POC Glucose (mg/dL) 127 H 162 H (70-110) mg/dL Cholesterol 244.00 H (0.00-200.00) mg/dL HDL Cholesterol 112.00 H (40.00-60.00) mg/dL 11/26/21 11/27/21 Range/Units 20:09 06:04 POC Glucose (mg/dL) 125 H 131 H (70-110) mg/dL Cholesterol (0.00-200.00) mg/dL HDL Cholesterol (40.00-60.00) mg/dL
--- NOTE | 2021-11-27 11:29 | P.PN ---
Subjective Patient is seen for follow-up for acute kidney injury on top of chronic kidney disease. Patient has underlying C daily stage IIIB to 4 with previous creatinine about 2.1-2.2 mg/dL secondary to diabetic kidney disease. He was admitted to the hospital with volume overload and is currently being diuresed. Serum creatinine was 2.8 on admission and it increased to 3.3 today. Overall patient states he is feeling better with improvement in his respiratory status. His weight is also decreased. 24-hour urine output not documented accurately. This morning patient states that he feels he has not voided as much. Weight is also not further down from yesterday. Lasix was decreased to every 12 hours yesterday. Objective - Vital Signs Vital signs: Vital Signs Temp 97.7 F 11/27/21 08:32 Pulse 103 H 11/27/21 08:32 Resp 18 11/27/21 08:32 BP 124/69 11/27/21 08:32 Pulse Ox 94 L 11/27/21 08:32 FiO2 Intake & Output 11/26/21 11/27/21 11/27/21 18:59 06:59 18:59 Intake Total 716 240 Balance 716 240 Weight 144.4 kg Intake: Oral 716 240 Other: Voiding Method Toilet Toilet Toilet # Voids 3 4 - Exam Patient is awake, comfortable, not in any acute distress Examination of the heart S1 and S2 Examination lungs bilateral breath sounds are heard Abdomen is soft nontender Examination of the lower extremities shows chronic skin changes with much improved edema [employer] exam grossly intact - Labs CBC & Chem 7: 11/26/21 07:57 11/27/21 09:33 Labs: Abnormal Lab Results - Last 24 Hours (Table) 11/26/21 11/26/21 11/26/21 Range/Units 11:41 16:37 20:09 BUN (9-20) mg/dL Creatinine (0.66-1.25) mg/dL Glucose (74-99) mg/dL POC Glucose (mg/dL) 127 H 162 H 125 H (70-110) mg/dL Calcium (8.4-10.2) mg/dL 11/27/21 11/27/21 Range/Units 06:04 09:33 BUN 45 H (9-20) mg/dL Creatinine 3.38 H (0.66-1.25) mg/dL Glucose 127 H (74-99) mg/dL POC Glucose (mg/dL) 131 H (70-110) mg/dL Calcium 7.8 L (8.4-10.2) mg/dL Assessment and Plan Assessment: 1. Acute kidney injury cardiorenal, blood pressure is not low. Renal function is slightly worse with creatinine up to 3.3. Cozaar was discontinued and and Lasix dose was decreased yesterday however patient reports decreased urine output and weight has also not decrease further today. I will continue with IV Lasix and add Zaroxolyn. Continue off of angiotensin receptor blockers 2. Chronic kidney disease NKF stage IV secondary to diabetic kidney disease maintained on angiotensin receptor blockers, baseline creatinine about 2-2.2 mg/dL Currently off of Cozaar due to acute kidney injury 3. Hypervolemic hyponatremia, improved with diuresis 4. Hypertension with CK D stage IV 5. Anemia of chronic disease with underlying iron deficiency. Add IV iron 6. Morbid obesity Plan: Continue IV Lasix 40 mg every 12 hours Add Zaroxolyn Repeat labs in a.m. Continue off of Cozaar Accurate I's and O
[2021-11-27 11:42] LABS: Glucose,Whole Blood 137 mg/dL (70-110)
--- NOTE | 2021-11-27 13:46 | P.PN ---
Subjective Progress Note Date: 11/27/21 This a 66-year-old gentleman admitted with acute CHF, alcohol abuse and multiple other medical issues. Diuresing well on Lasix IV push with 24-hour I&O reflecting a negative fluid balance, improving exertional shortness of breath. Increased creatinine, 2.98. Sodium improving, up to 128 Denies chest pain, palpitations. Maintaining O2 sats in the mid 90s on room air. 11/26/2021 diuresing well on Lasix IV push with 24-hour I&O inaccurate but is reflecting a decreased weight. Hypertensive , hydralazine increased .Renal function mildly worsened,BUN 40, creatinine 3.17. Sodium improving, 134. Afe brile, normal WBC Reports breathing better, no cough, decreasing edema. Maintaining O2 sats in the mid 90s on room air. Denies sweats or shakes. Reports upon ambulating in his legs felt like Jell-O, weak. Echo completed yesterday, reporting moderately increased septal wall thickness, normal LV f unction, EF 55-60%. 11/27/2021 Lasix decreased yesterday secondary to worsening renal function. W eight unchanged. Decreasing edema. Blood pressure controlled with increased dose of hydralazine. Denies chest pain, palpitations or shortness of breath. Objective - Vital Signs Vital signs: Vital Signs Temp 97.9 F 11/27/21 12:47 Pulse 97 11/27/21 12:47 Resp 18 11/27/21 12:47 BP 133/67 11/27/21 12:47 Pulse Ox 97 11/27/21 12:47 FiO2 Intake & Output 11/26/21 11/27/21 11/27/21 18:59 06:59 18:59 Intake Total 716 780 Output Total 700 Balance 716 80 Weight 144.4 kg Intake: Oral 716 780 Output: Urine 700 Other: Voiding Method Toilet Toilet Toilet # Voids 3 4 - Exam PHYSICAL EXAM: VITAL SIGNS: [As above] GENERAL: Alert and oriented 3, Sitting up at side of bed, no acute distress HEENT: Conjunctivae normal. eyes normal. MMM. NECK: Supple, No JVD. CARDIOVASCULAR: S1, S2 regular.No murmur RESPIRATION: Unlabored ,Breath sounds CTA. ABDOMEN: Soft, nontender . No guarding. no masses palpable.+BS. LEGS: Decreasing bilateral non-pitting extremity edema, no clubbing, no cyanosis NERVOUS SYSTEM: Cranial N 2-12 grossly normal. No focal deficits. Strength and sensation grossly intact. Skin: Warm and dry, no rash - Labs CBC & Chem 7: 11/26/21 07:57 11/27/21 09:33 Labs: Abnormal Lab Results - Last 24 Hours (Table) 11/26/21 11/26/21 11/27/21 Range/Units 16:37 20:09 06:04 BUN (9-20) mg/dL Creatinine (0.66-1.25) mg/dL Glucose (74-99) mg/dL POC Glucose (mg/dL) 162 H 125 H 131 H (70-110) mg/dL Calcium (8.4-10.2) mg/dL 11/27/21 11/27/21 Range/Units 09:33 11:39 BUN 45 H (9-20) mg/dL Creatinine 3.38 H (0.66-1.25) mg/dL Glucose 127 H (74-99) mg/dL POC Glucose (mg/dL) 137 H (70-110) mg/dL Calcium 7.8 L (8.4-10.2) mg/dL Assessment and Plan Assessment: New-onset CHF, echo pending Uncontrolled hypertension Acute on chronic kidney disease,NKF, stage IV, cardiorenal. Anemia, of chronic disease, ruling out iron deficiency Diabetes mellitus Hyponatremia, hypervolemic Hypomagnesemia Chronic alcohol abuse Gastroesophageal reflux disease Morbid obesity, BMI 42.9 Plan: Continue on current medication regime ,monitoring and symptomatic treatment. Creatinine pending. Continues on IV push Lasix with addition of Zaroxolyn as per nephrology.discharge planning in progress soon pending improvement in renal function, final DC recommendations and clearance per nephrology and cardiology. The impression and plan of care has been dictated as directed. : I performed a history and examination of this patient, discussed the same with the dictator. I agree with the dictator's note ,documented as a scribe. Any additional findings or plans will be noted.
[2021-11-27 16:58] LABS: Glucose,Whole Blood 161 mg/dL (70-110)
[2021-11-27] MEDS: FUROSEMIDE 40 MG TAB PO SCH (17:05)
[2021-11-27] MEDS: AMITRIPTYLINE HCL 50 MG TAB PO SCH (19:48)
[2021-11-27 20:04] LABS: Glucose,Whole Blood 166 mg/dL (70-110)
[2021-11-27 23:16] VITALS: RESP 18
[2021-11-28 06:10] LABS: Glucose,Whole Blood 107 mg/dL (70-110)
[2021-11-28] MEDS: PANTOPRAZOLE 40 MG TABLET PO SCH (06:29)
[2021-11-28] MEDS: ASPIRIN 81 MG PO SCH (08:26)
[2021-11-28] MEDS: SODIUM FERRIC GLUCONAT-SUCROSE 125 MG in SODIUM CHLORIDE 0.9% 100 ML IVPB SCH (08:26)
[2021-11-28] MEDS: hydrALAZINE HCL 50 MG TAB PO SCH (08:27)
[2021-11-28] MEDS: ISOSORBIDE MONONITRATE ER 30 MG TAB.ER.24H PO SCH (08:27)
[2021-11-28] MEDS: HEPARIN SODIUM,PORCINE/PF 5,000 UNIT/0.5 ML SYRINGE SQ SCH (08:27)
[2021-11-28] MEDS: FUROSEMIDE 40 MG TAB PO SCH (08:27)
--- NOTE | 2021-11-28 08:54 | P.PN ---
Subjective Patient is seen for follow-up for acute kidney injury on top of chronic kidney disease. Patient has underlying CKD stage IIIB to 4 with previous creatinine about 2.1- 2.2 mg/dL secondary to diabetic kidney disease. He was admitted to the hospital with volume overload and is currently being diuresed. Serum creatinine was 2.8 on admission and it increased to 3.3 yesterday. Overall patient states he is feeling better with improvement in his respiratory status. His weight is also decreased. 24-hour urine output not documented accurately. Objective - Vital Signs Vital signs: Vital Signs Temp 97.7 F 11/28/21 03:19 Pulse 92 11/28/21 03:19 Resp 18 11/28/21 03:19 BP 143/77 11/28/21 03:19 Pulse Ox 96 11/28/21 03:19 FiO2 Intake & Output 11/27/21 11/28/21 11/28/21 18:59 06:59 18:59 Intake Total 1030 240 180 Output Total 700 2350 Balance 330 -2110 180 Weight 143.3 kg Intake: Oral 1030 240 180 Output: Urine 700 2350 Other: Voiding Method Toilet Toilet Urinal # Voids 1 # Bowel Movements 1 - Exam Patient is awake, comfortable, not in any acute distress Examination of the heart S1 and S2 Examination lungs bilateral breath sounds are heard Abdomen is soft nontender Examination of the lower extremities shows chronic skin changes with much improv ed edema SHANK SKINNER exam grossly intact - Labs CBC & Chem 7: 11/26/21 07:57 11/27/21 09:33 Labs: Abnormal Lab Results - Last 24 Hours (Table) 11/27/21 11/27/21 11/27/21 Range/Units 09:33 11:39 16:51 BUN 45 H (9-20) mg/dL Creatinine 3.38 H (0.66-1.25) mg/dL Glucose 127 H (74-99) mg/dL POC Glucose (mg/dL) 137 H 161 H (70-110) mg/dL Calcium 7.8 L (8.4-10.2) mg/dL 11/27/21 Range/Units 19:59 BUN (9-20) mg/dL Creatinine (0.66-1.25) mg/dL Glucose (74-99) mg/dL POC Glucose (mg/dL) 166 H (70-110) mg/dL Calcium (8.4-10.2) mg/dL Assessment and Plan Assessment: 1. Acute kidney injury cardiorenal, blood pressure is not low. Renal function is slightly worse with creatinine up to 3.3. Cozaar was discontinued and and Lasix dose was decreased yesterday however patient reports decreased urine output and weight has also not decrease further today. I will continue with IV Lasix and add Zaroxolyn. Continue off of angiotensin receptor blockers 2. Chronic kidney disease NKF stage IV secondary to diabetic kidney disease maintained on angiotensin receptor blockers, baseline creatinine about 2-2.2 mg/dL Currently off of Cozaar due to acute kidney injury 3. Hypervolemic hyponatremia, improved with diuresis 4. Hypertension with CK D stage IV 5. Anemia of chronic disease with underlying iron deficiency. Add IV iron 6. Morbid obesity Plan: Continue oral Lasix Add Zaroxolyn Repeat labs in a.m. Continue off of Cozaar Accurate I's and O
[2021-11-28] MEDS ORDERED: metOLazone 2.5 MG TAB PO SCH (09:00)
--- NOTE | 2021-11-28 10:11 | P.DS ---
Providers Date of admission: 11/23/21 14:07 Expected date of discharge: 11/28/21 Attending physician: Flakito Guajardo MD Consults: 11/23/21 14:29 Consult Physician Routine Consulting Provider: [facility] Consult Reason/Comments: Pulmonary edema Do you want consulting provider notified?: Yes 11/24/21 11:03 Consult Physician Routine Consulting Provider: Quoc Abbasi Consult Reason/Comments: Acute on chronic kidney disease/hyponatremia Do you want consulting provider notified?: Yes Primary care physician: Flakito Guajardo MD Hospital Course: This a 66-year-old gentleman admitted with acute CHF, alcohol abuse and multiple other medical issues. Diuresing well on Lasix IV push with 24-hour I&O reflecting a negative fluid balance, improving exertional shortness of breath. Increased creatinine, 2.98. Sodium improving, up to 128 Denies chest pain, palpitations. Maintaining O2 sats in the mid 90s on room air. 11/26/2021 diuresing well on Lasix IV push with 24-hour I&O inaccurate but is reflecting a decreased weight. Hypertensive , hydralazine increased .Renal function mildly worsened,BUN 40, creatinine 3.17. Sodium improving, 134. Afebrile, normal WBC Reports breathing better, no cough, decreasing edema. Maintaining O2 sats in the mid 90s on room air. Denies sweats or shakes. Reports upon ambulating in his legs felt like Jell-O, weak. Echo completed yesterday, reporting moderately increased septal wall thickness, normal LV function, EF 55-60%. 11/27/2021 Lasix decreased yesterday secondary to worsening renal function. Weight unchanged. Decreasing edema. Blood pressure controlled with increased dose of hydralazine. Denies chest pain, palpitations or shortness of breath. 11/28/2021 On day of discharge, pt feeling significant better, no shortness of breath, edema is resolved. Cr is stable at 3.2. 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 He will continue with lasix twice daily Plan - Discharge Summary Discharge Rx Participant: No New Discharge Prescriptions: New hydrALAZINE HCL [Apresoline] 50 mg PO BID #180 tab Aspirin 81 mg PO DAILY #90 tab metOLazone [Zaroxolyn] 2.5 mg PO DAILY #90 tab Isosorbide Mononitrate ER [Imdur] 30 mg PO DAILY #90 tab Furosemide [Lasix] 40 mg PO BID@0900,1600 #180 tab Continue Vitamin A 2,400 mcg PO DAILY Amitriptyline HCl [Elavil] 50 mg PO HS Vitamin B Complex 1 cap PO DAILY Discontinued Furosemide [Lasix] 40 mg PO BID Discharge Medication List Amitriptyline HCl [Elavil] 50 mg PO HS 11/23/21 [History] Vitamin A 2,400 mcg PO DAILY 11/23/21 [History] Vitamin B Complex 1 cap PO DAILY 11/23/21 [History] Aspirin 81 mg PO DAILY #90 tab 11/28/21 [Rx] Furosemide [Lasix] 40 mg PO BID@0900,1600 #180 tab 11/28/21 [Rx] Isosorbide Mononitrate ER [Imdur] 30 mg PO DAILY #90 tab 11/28/21 [Rx] hydrALAZINE HCL [Apresoline] 50 mg PO BID #180 tab 11/28/21 [Rx] metOLazone [Zaroxolyn] 2.5 mg PO DAILY #90 tab 11/28/21 [Rx] Follow up Appointment(s)/Referral(s): Pinky Narayanan MD [STAFF PHYSICIAN] - 12/27/21 11:40 am (Your appt is in the [place] office with Britni.) Flakito Guajardo MD [Primary Care Provider] - 11/29/21 10:00 am (To be seen quickly, you will see Dr. Wendi Guajardo.) Kehinde Mills MD [STAFF PHYSICIAN] - 1 Week (Office will contact you with appointment date and time.) Discharge Disposition: HOME SELF-CARE Care Plan Goals (MU): [facility] Will deliver walker, If questions please call agency.
[2021-11-28 10:53] LABS: Calcium 8.2 mg/dL (8.4-10.2); Potassium 4.7 mmol/L (3.5-5.1)
[2021-11-28 11:50] LABS: Glucose,Whole Blood 119 mg/dL (70-110)
--- NOTE | 2021-11-28 11:58 | P.PN ---
Subjective Progress Note Date: 11/28/21 HISTORY OF PRESENT ILLNESS: 11/24/2021 The patient is a 66-year-old gentleman with a past medical history significant for obesity as well as hypertension and also chronic kidney disease. No history of coronary artery disease or congestive heart failure and the patient doesn't follow with any baker helper regularly. He presented to the emergency room with 3 weeks history of progressive dyspnea associated with orthopnea and also associated with severe bilateral lower extremities edema and weight gain. The patient stated that he gained 80 pounds within the last 3 months. He stated that he never been told that he has congestive heart failure. Obviously he has been gaining the weight very slightly. No symptoms of chest pain or chest discomfort. No dizziness or lightheadedness and no feeling of heart racing or fluttering. No presyncope or syncope. Clinically he was in failure and the patient was admitted to the hospital and started on IV Lasix. When he was seen this morning he stated that he is feeling somewhat better. On examination he continues to have bilateral rhonchi was diminished breathing sounds bilaterally and also bilateral lower extremities edema. Beside that he underwent a workup including chest x-ray showed pulmonary vascular congestions. His NT proBNP came in to be elevated at 4000. His hemoglobin has been stable. The creatinine is 2.87 which appeared to be his baseline. Troponin within normal limits. EKG showed sinus rhythm with no significant or ischemic ST or T-wave abnormalities. When he presented to the hospital he was hypertensive. He stated that he has been compliant with his medication. 11/25/2021 Patient examined this morning at the bedside. Patient denies chest pain or pressure. Patient denies shortness of breath at rest. He does report shortness of breath with exertion. Patient states he took a shower this morning and had to take a couple breaks because he was short of breath. He remains on Lasix 40 mg IV every 8 hours. 11/26/2021 Patient examined this morning at the bedside. Patient denies chest pain or pressure. Patient states his shortness of breath is improving. He denies any shortness of breath at rest. He reports minimal shortness of breath with exertion which is improved from yesterday. Echocardiogram completed revealing ejection fraction 55-60%. Patient remains on IV Lasix 40 mg every 8 hours. Kidney function today slightly worse with a creatinine of 3.17. Blood pressure is elevated this morning with a reading of 161/87. 11/27/2021 Patient examined this morning at the bedside. Patient denies chest pain or pressure. He currently denies SOB. He is a little frustrated this morning because he states he did not lose any weight this morning when they weighed him compared to yesterday. He remains on IV lasix. Hydralazine was increased yesterday and patients blood pressure has improved today with a recent reading of 124/69. 11/28/2021 Patient examined this morning at the bedside. Patient denies chest pain or pressure. He denies shortness of breath. He has been transitioned over to oral Lasix. Vital signs are stable. He is hoping to be discharged home today. PHYSICAL EXAM: VITAL SIGNS: Reviewed. GENERAL: Well-developed in no acute distress. NECK: Supple. No JVD or thyromegaly LUNGS: Respirations even and unlabored. Lungs essentially clear to auscultation bilaterally. HEART: Regular rate and rhythm. S1 and S2 heard. EXTREMITIES: Normal range of motion. No clubbing or cyanosis. Peripheral pulses intact. Bilateral nonpitting lower extremity edema ASSESSMENT: Shortness of breath Acute heart failure with preserved ejection fraction, EF 55-60% Acute on chronic kidney disease Hypertension PLAN: Continue current cardiac medications Patient is stable for discharge home today from a cardiac standpoint He is follow up outpatient with Dr. Mills Nurse practitioner note has been reviewed by physician. Signing provider agrees with the documented findings, assessment, and plan of care. Objective - Vital Signs Vital signs: Vital Signs Temp 97.8 F 11/28/21 08:20 Pulse 79 11/28/21 08:20 Resp 18 11/28/21 08:20 BP 133/79 11/28/21 08:20 Pulse Ox 97 11/28/21 08:20 FiO2 Intake & Output 11/27/21 11/28/21 11/28/21 18:59 06:59 18:59 Intake Total 1030 240 180 Output Total 700 2350 Balance 330 -2110 180 Weight 143.3 kg Intake: Oral 1030 240 180 Output: Urine 700 2350 Other: Voiding Method Toilet Toilet Toilet Urinal Urinal # Voids 1 # Bowel Movements 1 - Labs CBC & Chem 7: 11/26/21 07:57 11/28/21 10:00 Labs: Abnormal Lab Results - Last 24 Hours (Table) 11/27/21 11/27/21 11/28/21 Range/Units 16:51 19:59 10:00 BUN 45 H (9-20) mg/dL Creatinine 3.51 H (0.66-1.25) mg/dL Glucose 138 H (74-99) mg/dL POC Glucose (mg/dL) 161 H 166 H (70-110) mg/dL Calcium 8.2 L (8.4-10.2) mg/dL 11/28/21 Range/Units 11:48 BUN (9-20) mg/dL Creatinine (0.66-1.25) mg/dL Glucose (74-99) mg/dL POC Glucose (mg/dL) 119 H (70-110) mg/dL Calcium (8.4-10.2) mg/dL
[2021-11-28 13:44] VITALS: BP 134/67; PULSE 72; TEMP 98.9
== END 2021-11-28 13:41 | disposition home or self-care (01) | DRG 291 ==
LOC: EC 12:09 → 3SCARD 14:07
PROVIDERS: ADMIT Family Medicine; ATTEND Family Medicine
DX: I13.0 Hypertensive heart and chronic kidney disease with heart failure and stage 1 through stage 4 chronic kidney disease, or unspecified chronic kidney disease (principal); I50.33 Acute on chronic diastolic (congestive) heart failure; E87.1 Hypo-osmolality and hyponatremia; N17.9 Acute kidney failure, unspecified; N18.4 Chronic kidney disease, stage 4 (severe); Z68.41 Body mass index [BMI] 40.0-44.9, adult; E11.22 Type 2 diabetes mellitus with diabetic chronic kidney disease; D63.8 Anemia in other chronic diseases classified elsewhere; E66.01 Morbid (severe) obesity due to excess calories; F32.A Depression, unspecified; E11.42 Type 2 diabetes mellitus with diabetic polyneuropathy; F10.10 Alcohol abuse, uncomplicated; K21.9 Gastro-esophageal reflux disease without esophagitis; E83.42 Hypomagnesemia; F17.200 Nicotine dependence, unspecified, uncomplicated; Z66 Do not resuscitate; Z79.899 Other long term (current) drug therapy
CPT/HCPCS: 36415; 71046; 76770; 80048; 80053; 80061; 80320; 81001; 83036; 83540; 83550; 83605; 83735; 83880; 84484; 85025; 85610; 85730; 93005; 93306; 94760; 96365; 96375; 99285

== ENCOUNTER → 2022-01-24 | Outpatient (CLI) | payer MEDICARE ==
[2022-01-24 20:10] LABS: DNA Double-Stranded POSITIVE (NEGATIVE)
[2022-01-27 11:18] LABS: Free Kappa Lt Chain Qnt, Serum 100.64 mg/dL (0.33-1.94); Free Lambda Lt Chain Qnt, Seru 3.04 mg/dL (0.57-2.63)
== END | disposition home or self-care (01) ==
LOC: LABWHC1 11:36
PROVIDERS: ATTEND Internal Medicine
DX: N18.4 Chronic kidney disease, stage 4 (severe) (principal)
CPT/HCPCS: 36415; 83516; 83883; 86038; 86039; 86160; 86162; 86225; 86255; 86334

== ENCOUNTER → 2023-11-03 | Outpatient (CLI) | payer MEDICARE | END | disposition home or self-care (01) | LOC: LABWHC1 11:51 | PROVIDERS: ATTEND Family Medicine | DX: N18.9 Chronic kidney disease, unspecified (principal); D63.1 Anemia in chronic kidney disease | CPT/HCPCS: 86850; 86900; 86901; 86920 ==